=== PATIENT | female | born 1945 | race Caucasian/White ===

== ENCOUNTER → 2017-12-29 08:43 | Outpatient (CLI) | payer MEDICARE, OTHER, SELFPAY ==
[2017-12-29 09:31] LABS: Alanine Aminotransferase 18 IU/L (9-52); Albumin 4.1 g/dL (3.5-5.0); Albumin Globulin Ratio 1.4 (1.0-2.8); Alkaline Phosphatase 25 U/L (38-126); Aspartate Aminotransferase 18 IU/L (14-36); Bilirubin Total 0.5 mg/dL (0.2-1.3); Blood Urea Nitrogen 15 mg/dL (7-17); Calcium 9.4 mg/dL (8.4-10.2); Carbon Dioxide 29 mmol/L (22-32); Chloride 103 mmol/L (98-107); Cholesterol 248 mg/dL (140-199); Estimated Glomerular Filt Rate > 60.0 mL/min (>60); Globulin 2.9 g/dL (1.7-4.1); Glucose 90 mg/dL (80-110); HDL Cholesterol 63 mg/dL (40-60); HEMOLYSIS < 15 (0-50); LDL Cholesterol Calculated 165 mg/dL (<100); Potassium 4.1 mmol/L (3.4-5.1); Sodium 142 mmol/L (137-145); Triglycerides 99 mg/dL (35-150)
== END ==
PROVIDERS: PCP Physician Assistant; Visit Provider Physician Assistant
DX: E78.5 Hyperlipidemia, unspecified (principal)
CPT/HCPCS: 36415; 80053; 80061

== ENCOUNTER → 2018-02-06 16:26 | Outpatient (CLI) | payer MEDICARE, OTHER, SELFPAY | PROVIDERS: PCP Physician Assistant; Visit Provider Physician Assistant | DX: R30.0 Dysuria (principal) | CPT/HCPCS: 87077; 87086; 87186 ==

== ENCOUNTER → 2018-06-06 13:07 | Outpatient (CLI) | payer MEDICARE, OTHER, SELFPAY ==
[2018-06-06 15:07] LABS: Add Manual Diff / Slide Review NO; Basophils Percent Auto 0.6 % (0-2); Eosinophils Percent Auto 1.5 % (2-4); Hematocrit 38.7 % (36-46); Hemoglobin 13.1 g/dL (12.0-16.0); Lymphocytes Percent Auto 29.9 % (25-40); Mean Corpuscular HGB Conc 33.9 % (30-36); Mean Corpuscular Hemoglobin 31.3 PG (26-34); Mean Corpuscular Volume 92.2 fL (80-100); Monocytes Percent Auto 8.1 % (3-14); Neutrophils Absolute Auto 3000 /uL (3000-5900); Neutrophils Percent Auto 59.9 % (50-75); Platelet Count 164 X10^3/uL (150-400); Red Blood Cell Count 4.19 X10^6/uL (4.0-5.2); Red Cell Distribution Width 13.1 % (11.6-14.8); White Blood Cell Count 5.1 X10^3/uL (4.5-11.0)
[2018-06-06 15:25] LABS: Alanine Aminotransferase 34 IU/L (9-52); Albumin 4.3 g/dL (3.5-5.0); Albumin Globulin Ratio 1.7 (1.0-2.8); Alkaline Phosphatase 29 U/L (38-126); Aspartate Aminotransferase 20 IU/L (14-36); BUN Creatinine Ratio 21.4 (6-22); Bilirubin Total 0.7 mg/dL (0.2-1.3); Blood Urea Nitrogen 15 mg/dL (7-17); Calcium 9.5 mg/dL (8.4-10.2); Carbon Dioxide 24 mmol/L (22-32); Chloride 105 mmol/L (98-107); Estimated Glomerular Filt Rate > 60.0 mL/min (>60); Globulin 2.5 g/dL (1.7-4.1); Glucose 91 mg/dL (80-110); HEMOLYSIS < 15 (0-50); Sodium 140 mmol/L (137-145); Total Protein 6.8 g/dL (6.3-8.2)
[2018-06-06 15:34] LABS: Cholesterol 254 mg/dL (140-199); HDL Cholesterol 75 mg/dL (40-60); LDL Cholesterol Calculated 163 mg/dL (<100); Triglycerides 78 mg/dL (35-150)
[2018-06-06 17:15] LABS: Clostridium Difficile Tox PCR Negative for C.diff
== END ==
PROVIDERS: PCP Physician Assistant; Visit Provider Physician Assistant
DX: E78.5 Hyperlipidemia, unspecified (principal); Z51.81 Encounter for therapeutic drug level monitoring; R19.7 Diarrhea, unspecified
CPT/HCPCS: 36415; 80053; 80061; 85025; 87015; 87045; 87177; 87427; 87493; 87899

== ENCOUNTER → 2018-06-20 12:03 | Outpatient (CLI) | payer MEDICARE, OTHER, SELFPAY ==
[2018-06-20 17:11] LABS: Thyroid Stimulating Hormone 0.93 uIU/mL (0.47-4.68)
[2018-06-21 14:14] LABS: Clostridium Difficile Tox PCR Negative for C. diff
== END ==
PROVIDERS: PCP Physician Assistant; Visit Provider Physician Assistant
DX: R19.7 Diarrhea, unspecified (principal); R63.4 Abnormal weight loss
CPT/HCPCS: 36415; 84443; 87015; 87045; 87427; 87493; 87899

== ENCOUNTER → 2018-06-21 10:24 | Outpatient (CLI) | payer MEDICARE, OTHER, SELFPAY | PROVIDERS: PCP Physician Assistant; Visit Provider Physician Assistant | DX: E78.5 Hyperlipidemia, unspecified (principal) | CPT/HCPCS: 36415 ==

== ENCOUNTER → 2018-06-25 09:28 | Outpatient (CLI) | payer MEDICARE, OTHER, SELFPAY ==
--- NOTE | 2018-06-25 | DI.MG.S_ITS ---
BILATERAL DIGITAL SCREENING MAMMOGRAM 3D/2D WITH CAD POST LUMPECTOMY: 06/25/2018 CLINICAL: Routine screening. Personal history of left breast cancer. Comparison is made to exams dated: 02/02/2017 mammogram - [facility], 11/25/2015 mammogram - [facility], and 11/23/2014 mammogram - [facility]. There are scattered fibroglandular elements in both breasts. Current study was also evaluated with a Computer Aided Detection (CAD) system. There are benign post operative findings in the left breast. No significant masses, calcifications, or other findings are seen in either breast. There has been no significant interval change. IMPRESSION: There is no mammographic evidence of malignancy. A 1 year screening mammogram is recommended. This exam was interpreted at Station ID: [id number]. NOTE: For mammograms, a report in lay terms will be sent to the patient. Approximately 15% of breast malignancies will not be visualized mammographically. In the management of a palpable breast mass, a negative mammogram must not discourage biopsy of a clinically suspicious lesion. Electronically Signed By: Richard peralta/arline:06/27/2018 18:47:00 letter sent: Normal Exam ACR BI-RADS Category 2: Benign Finding(s) 3342F
== END ==
PROVIDERS: PCP Physician Assistant; Visit Provider Physician Assistant
DX: Z12.31 Encounter for screening mammogram for malignant neoplasm of breast (principal); Z85.3 Personal history of malignant neoplasm of breast
CPT/HCPCS: 77063; 77067

== ENCOUNTER → 2018-09-16 08:03 | Outpatient (CLI) | payer MEDICARE, OTHER, SELFPAY ==
[2018-09-16 09:09] LABS: Cholesterol 259 mg/dL (140-199); HDL Cholesterol 72 mg/dL (40-60); LDL Cholesterol Calculated 169 mg/dL (<100); Triglycerides 90 mg/dL (35-150)
== END ==
PROVIDERS: PCP Physician Assistant; Visit Provider Physician Assistant
DX: E78.5 Hyperlipidemia, unspecified (principal)
CPT/HCPCS: 36415; 80061

== ENCOUNTER → 2018-09-30 07:41 | Outpatient (CLI) | payer MEDICARE, OTHER, SELFPAY ==
--- NOTE | 2018-09-30 07:43 | DI.US.S_ITS ---
PROCEDURE: US ABDOMEN COMPLETE INDICATIONS: PAIN; DIARRHEA TECHNIQUE: Real-time scanning was performed of the abdominal and retroperitoneal organs, with image documentation. COMPARISON: None. FINDINGS: Liver: Liver is normal in size and homogeneous in echotexture. Gallbladder: There is no gall stone. No gallbladder wall thickening or pericholecystic fluid. No sonographic Galo sign. Biliary ducts: Intrahepatic bile ducts are non-dilated. Extrahepatic bile duct caliber measures 2.5 mm. Normal is 6-7 mm or less in diameter, or 10 mm or less post-cholecystectomy. Pancreas: Visualized portions of the pancreas are sonographically normal. Spleen: Spleen is normal in size and homogeneous in echotexture. Kidneys: Kidneys are normal in size and echotexture. Right kidney measures 9.6 cm long; left kidney measures 10.8 cm long. No hydronephrosis or nephrolithiasis. No solid masses. Aorta: Visualized aorta is normal in caliber at less than 3 cm. Iliacs: Proximal common iliac arteries are normal in caliber at less than 2.5 cm. IVC: Intrahepatic inferior vena cava is patent. Miscellaneous: No free abdominal fluid. IMPRESSION: Unremarkable ultrasound examination of abdomen. Dictated by: Gen Baldwin M.D. on 09/30/2018 at 9:28 Approved by: Gen Baldwin M.D. on 09/30/2018 at 9:29
== END ==
PROVIDERS: PCP Physician Assistant; Visit Provider Physician Assistant
DX: R10.9 Unspecified abdominal pain (principal); R19.7 Diarrhea, unspecified
CPT/HCPCS: 76700; 87328

== ENCOUNTER → 2019-05-01 07:18 | Outpatient (CLI) | payer MEDICARE, OTHER, SELFPAY ==
[2019-05-01 08:02] LABS: Alanine Aminotransferase 32 IU/L (9-52); Albumin 4.3 g/dL (3.5-5.0); Albumin Globulin Ratio 1.4 (1.0-2.8); Alkaline Phosphatase 24 U/L (38-126); Aspartate Aminotransferase 28 IU/L (14-36); BUN Creatinine Ratio 17.1 (6-22); Bilirubin Total 0.8 mg/dL (0.2-1.3); Blood Urea Nitrogen 12 mg/dL (7-17); Calcium 9.6 mg/dL (8.4-10.2); Carbon Dioxide 29 mmol/L (22-32); Chloride 105 mmol/L (98-107); Cholesterol 254 mg/dL (140-199); Estimated Glomerular Filt Rate > 60.0 mL/min (>60); Glucose 95 mg/dL (80-110); HDL Cholesterol 59 mg/dL (40-60); HEMOLYSIS < 15 (0-50); LDL Cholesterol Calculated 175 mg/dL (<100); Potassium 4.2 mmol/L (3.4-5.1); Sodium 139 mmol/L (137-145); Total Protein 7.3 g/dL (6.3-8.2); Triglycerides 98 mg/dL (35-150)
== END ==
PROVIDERS: PCP Physician Assistant; Visit Provider Physician Assistant
DX: E78.5 Hyperlipidemia, unspecified (principal); M85.89 Other specified disorders of bone density and structure, multiple sites; M81.0 Age-related osteoporosis without current pathological fracture
CPT/HCPCS: 36415; 80053; 80061; 82306

== ENCOUNTER → 2019-05-05 08:47 | Outpatient (CLI) | payer MEDICARE, OTHER, SELFPAY ==
--- NOTE | 2019-05-05 | DI.RAD.S_ITS ---
PROCEDURE: FL BARIUM SWALLOW W SPEECH INDICATIONS: ASPIRATION TECHNIQUE: Examination was conducted in conjunction with speech pathology per standard protocol. In the lateral projection, filming was performed of the patient swallowing. AP projection filming may also be performed with patient swallowing. COMPARISON: None. FINDINGS: Function: The oral preparatory phase appears normal, with proper containment. The subsequent oral propulsive phase, pharyngeal phase, and esophageal phase of swallowing also appear normal with all proffered substances. There was vallecular and pyriform sinus pooling. Silent tracheal aspiration was observed with thin liquid barium consistency only. Morphology: No cricopharyngeal bar is identified. No cervical esophageal webs. No Zenker's diverticulum. No strictures. IMPRESSION: Silent tracheal aspiration with thin liquid barium consistency. Dictated by: Danish Guerin M.D. on 05/05/2019 at 9:40 Approved by: Danish Guerin M.D. on 05/05/2019 at 9:41
--- NOTE | 2019-05-08 18:07 | ST.SWALLOW ---
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 Abbasi Reason for Referral dysphagia Setting Setting Outpatient Care Patient Information Identification Type Name,Picture Patient History Calli Marti presented for a Modified Barium Swallow study at the referral of Dr. Abbasi, ENT. Calli provided her medical history as including breast cancer (left) with radiation and chemo therapies ~ 17 years ago. Calli described her difficulty swallowing as mostly occurring with her secretions. She did note that 2 weeks ago, she had a visit from a friend who is a graphic user interface designer. Her friend told he to place her tongue on the roof of her mouth and press hard before she swallowed ( Supraglottic therapy strategy) . Calli reported that the coughing and choking she was experiencing reduced significantly. She noted she had ~ 2 episodes of tiny aspirations. Now, she reported, she will sometimes aspirate her secretions. She describes her secretions as a lot of saliva and PND. Calli also reported that she had GERD and is taking Zertec, although she has cut her dose down as she felt the medication was drying her up. Subjective Observations Pt was seated in the fluoroscopy chair. Directions and procedures wer described to her and she agreed to proceed. Patient Positioning Position View Lateral Imaging Lateral View Textures Administered Trials Presented Thin Liquid via Spoon,Thin Liquid via Cup,[place] Liquid via Spoon,[place] Liquid via Cup,Pudding Thick Liquid via Spoon,Regular Textures,Barium Tablet Oral Phase Source: MBSIMP (TM) (C) Bolus Specific Scoring Grid Lip Closure WFL Tongue Control During Bolus Hold WFL Bolus Prep/Mastication WFL Bolus Transport/Lingual Motion WFL A/P Lingual Propulsion Delay No Oral Residue WFL Residue Clearing WFL Nasal Regurgitation No Additional Oral Phase Observations Pt's dentition noted missing posterior molars. She said she had a partial, but took it out. OM strength, ROM and speed WNL Pharyngeal Phase Source: MBSIMP (TM) (C) Bolus Specific Scoring Grid Delayed Initiation of Pharyngeal Swallow Yes: To the valeculla Number of Seconds Delayed (seconds) 1+s Soft Palate Elevation WFL Tongue Base Strength/Range of Motion Mild Impairment Residue Along the Tongue Base Yes Clearance of Residue Along Tongue Base Mild Impairment Laryngeal Elevation Minimal Impairment Anterior Hyoid Movement Minimal Impairment Epiglottic Range of Motion Minimal Impairment Vallecular Residue Yes: across all trials Clearance of Vallecular Residue Moderate Impairment Laryngeal Vestibular Closure Moderate Impairment Pharyngeal Stripping Wave Mild Impairment Posterior Pharyngeal Wall Residue Yes Clearance of Posterior Pharyngeal Wall Moderate Impairment Residue Upper Esophageal Sphincter Opening Minimal Impairment Residue in the Pyriform Sinuses Yes: some clearing with second swallows Clearance of Residue in the Pyriform Mild Impairment Sinuses Esophageal Clearance Upright Position Mild Impairment Pharyngoesophageal Backflow Observed No Additional Pharyngeal Phase Observations Pt 's swallow reflex was delayed to the valeculla. Hyolaryneal elevation was adequate and forward movement of the hyoid was incomplete. Tongue base also was reduced. This results in inconsistent epiglottic inversion with resulting pooling of residue in valeculla. Additionally, the epiglottic seal of the larynfgeal vestibule is adequate for single swallows, but when taxed by subsequent swallows, the epiglittic seal was inadequate and resulted in silent penetration and aspiration. [place] thick liquids were swallowed with no penetration or aspiration. Second swallows were effective in clearing residue. Cued coughs x2 cleared the vestible residue and aspirated material. With solid trial, here was pooling of solid material in the valeculla as well as the pyriform sinuses. Second swallow cleared. Chin tuck was effective in reducing residue/pooling. A/P View Clinical Impressions Dysphagia Type pharyngeal dysphagie Findings It is likely that the inconsistency of the epiglottic inversion and the difficulties described above re: her swallow is related to the scatter radiation the pt may have been exposed to during her cancer treatments. And/or there may be a factor of age and presbydysphagia. Discussion with the pt following the assessment, she remarked that the nectar thick liquids were smooth and easy to swallow. Swallow therapy was recommended , but he pt felt that as she was already doing the supraglottic technique and her swallowing had improved, she declined therapy at this time. Patient Appropriate for Therapy Pt refused at this time Recommendations Diet Liquids Order [place] Diet Order Regular Medication Recommendation As Tolerated,Whole in Carrier Aspiration Precautions Recommended Precautions Small Bites/Sips,Double Swallow,Supraglottic Swallow
== END ==
PROVIDERS: PCP Physician Assistant; Visit Provider Otolaryngology Facial Plastic Surgery
DX: J98.8 Other specified respiratory disorders (principal); R13.10 Dysphagia, unspecified
CPT/HCPCS: 74230; 92611

== ENCOUNTER → 2019-05-10 13:01 | Outpatient (CLI) | payer MEDICARE, OTHER, SELFPAY | PROVIDERS: PCP Physician Assistant; Referring Provider Otolaryngology Facial Plastic Surgery; Visit Provider Physician Assistant | DX: M81.0 Age-related osteoporosis without current pathological fracture (principal); Z78.0 Asymptomatic menopausal state; Z90.722 Acquired absence of ovaries, bilateral; Z85.3 Personal history of malignant neoplasm of breast | CPT/HCPCS: 77080 ==

== ENCOUNTER → 2019-07-26 07:33 | Outpatient (CLI) | payer MEDICARE, OTHER, SELFPAY ==
[2019-07-26 09:04] LABS: Cholesterol 171 mg/dL (140-199); HDL Cholesterol 62 mg/dL (40-60); LDL Cholesterol Calculated 95 mg/dL (<100); Triglycerides 68 mg/dL (35-150)
== END ==
PROVIDERS: PCP Physician Assistant; Visit Provider Physician Assistant
DX: E78.5 Hyperlipidemia, unspecified (principal)
CPT/HCPCS: 36415; 80061

== ENCOUNTER → 2019-08-30 08:48 | Outpatient (CLI) | payer MEDICARE, OTHER, SELFPAY ==
--- NOTE | 2019-08-30 | DI.MG.S_ITS ---
BILATERAL DIGITAL SCREENING MAMMOGRAM 3D/2D WITH CAD POST LUMPECTOMY: 08/30/2019 CLINICAL: Routine screening. Personal history of left breast cancer. Comparison is made to exams dated: 06/25/2018 mammogram, 02/02/2017 mammogram - [facility], and 11/25/2015 mammogram - [facility]. There are scattered fibroglandular elements in both breasts. Current study was also evaluated with a Computer Aided Detection (CAD) system. There are benign post operative findings in the left breast. No significant masses, calcifications, or other findings are seen in either breast. There has been no significant interval change. IMPRESSION: There is no mammographic evidence of malignancy. A 1 year screening mammogram is recommended. This exam was interpreted at Station ID: [id number]. NOTE: For mammograms, a report in lay terms will be sent to the patient. Approximately 15% of breast malignancies will not be visualized mammographically. In the management of a palpable breast mass, a negative mammogram must not discourage biopsy of a clinically suspicious lesion. Electronically Signed By: Elvia horowitz/arline:08/30/2019 11:23:34 letter sent: Normal Exam ACR BI-RADS Category 2: Benign Finding(s) 3342F
== END ==
PROVIDERS: PCP Family Medicine; Referring Provider Family Medicine; Visit Provider Family Medicine
DX: Z12.31 Encounter for screening mammogram for malignant neoplasm of breast (principal); Z85.3 Personal history of malignant neoplasm of breast
CPT/HCPCS: 77063; 77067

== ENCOUNTER → 2019-12-22 16:49 | Outpatient (CLI) | payer MEDICARE, OTHER, SELFPAY ==
--- NOTE | 2019-12-22 16:51 | DI.RAD.S_ITS ---
PROCEDURE: XR CERVICAL SPINE 2V OR 3V INDICATIONS: Progressive neck pain TECHNIQUE: 3 view(s) of the cervical spine were acquired. COMPARISON: None. FINDINGS: Bones: No fractures or dislocations to the T1 level. The lateral masses of C1 appear intact on the odontoid view. No suspicious bony lesions. There is a moderate degree of degenerative disc height reduction at C5-6 and C6-7 without subluxation. Facet osteoarthritis on the frontal views greater on the left than the right and best seen along the middle and lower thirds of the cervical spine. Soft tissues: No prevertebral soft tissue swelling. IMPRESSION: Asymmetric left greater than right degenerative changes along the cervical spine best seen through the middle and lower thirds as noted. Spinal and foraminal stenosis may be present given these findings. Dictated by: Rai Pittman M.D. on 12/22/2019 at 16:19 Approved by: Rai Pittman M.D. on 12/22/2019 at 16:20
== END ==
PROVIDERS: PCP Family Medicine; Referring Provider Family Medicine; Visit Provider Family Medicine
DX: M54.2 Cervicalgia (principal); M47.812 Spondylosis without myelopathy or radiculopathy, cervical region
CPT/HCPCS: 72040

== ENCOUNTER → 2020-01-20 | Outpatient (CLI) | payer MEDICARE, OTHER, SELFPAY ==
--- NOTE | 2020-01-20 | DI.MRI.S_ITS ---
PROCEDURE: MR CERVICAL SPINE WO CON INDICATIONS: Other cervical disc degeneration, unspecified cerv TECHNIQUE: Noncontrast sagittal T1 spin echo and T2 fast spin echo, sagittal STIR, foraminal oblique sagittal T2 fast spin echo, and axial gradient echo or T2 fast spin echo through the cervical spine. COMPARISON: None. FINDINGS: Image quality: Excellent. Alignment and Curvature: There is normal bony alignment. Bone Marrow: Marrow demonstrates normal overall signal. Spinal Cord: Visualized spinal cord has normal size and signal. No cerebellar tonsillar herniation. Paraspinous Soft Tissues: No paravertebral masses. Prevertebral soft tissues are normal in thickness. C2-C3: Normal appearance. C3-C4: Normal appearance. C4-C5: Mild posterior disc bulge. No canal stenosis. Mild left neural foraminal narrowing. No right neural foraminal stenosis. C5-C6: Moderate disc desiccation and height loss. Small posterior disc bulge. Mild canal stenosis. Mild bilateral neural foraminal stenosis. C6-C7: Mild disc desiccation and height loss. No canal stenosis. Mild left foraminal narrowing. C7-T1: Normal appearance. IMPRESSION: 1. Mild to moderate disc desiccation height loss within the mid cervical spine. There is mild canal stenosis at C5-6 secondary to posterior disc bulge. 2. Mild foraminal narrowing bilaterally at C5-6 and on the left at C4-5 and C6-7. Dictated by: Elvia Richards M.D. on 01/22/2020 at 9:32 Approved by: Elvia Richards M.D. on 01/22/2020 at 9:41
== END ==
PROVIDERS: PCP Family Medicine; Referring Provider Physical Medicine & Rehabilitation Pain Medicine; Visit Provider Physical Medicine & Rehabilitation Pain Medicine
DX: M50.322 Other cervical disc degeneration at C5-C6 level (principal); M48.02 Spinal stenosis, cervical region; M50.221 Other cervical disc displacement at C4-C5 level
CPT/HCPCS: 72141

== ENCOUNTER → 2020-01-25 17:52 | Outpatient (CLI) | payer MEDICARE, OTHER, SELFPAY ==
--- NOTE | 2020-01-25 | DI.MRI.S_ITS ---
PROCEDURE: MR LUMBAR SPINE WO CON INDICATIONS: Low back pain TECHNIQUE: Noncontrast sagittal T1 spin echo and T2 fast echo, sagittal STIR, axial T1 and T2 fast spin echo through the lumbar spine. In cases with scoliosis, additional coronal T2 fast spin echo may be performed. COMPARISON: None. FINDINGS: Image quality: Excellent. Alignment and Curvature: There is normal bony alignment. Bone Marrow: Marrow is of normal overall signal. No acute vertebral body compression fractures. Spinal Cord: Conus medullaris terminates at the L1 level. Visualized cord demonstrates normal signal and size. Paraspinous Soft Tissues: No paravertebral masses. L1-L2: Loss of disc signal. No central stenosis. No neural foraminal narrowing. No neural compression. L2-L3: Loss of disc signal. Mild, diffuse disc bulge. Mild narrowing of the central canal. Small right foraminal disc protrusion. Moderate right and mild left neural foraminal narrowing. No neural compression. L3-L4: Loss of disc signal. Minimal, diffuse disc bulge. Mild bilateral facet hypertrophy. Mild narrowing of the central canal. Mild bilateral neural foraminal narrowing. No neural compression. L4-L5: Loss of disc signal. Mild, diffuse disc bulge. Mild bilateral facet hypertrophy. Mild to moderate narrowing of the central canal. Moderate bilateral neural foraminal narrowing. No neural compression. L5-S1: Loss of disc signal. Mild, diffuse disc bulge. Moderate right and mild left facet hypertrophy. No central stenosis. No neural foraminal narrowing. No neural compression. 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 IMPRESSION: 1. Multilevel degenerate disc disease. 2. Multilevel facet arthropathy. 3. Mild to moderate L4-L5 central canal narrowing. Mild L2-L3 and L3-L4 central canal narrowing. 4. Moderate bilateral L4-L5 neural foraminal narrowing. Moderate right and mild left L2-L3 neural foraminal narrowing. Mild bilateral L3-L4 neural foraminal narrowing. 5. No neural compression. Dictated by: Abbi Story MD, PhD on 01/26/2020 at 10:43 Approved by: Abbi Story MD, PhD on 01/26/2020 at 11:35
== END ==
PROVIDERS: PCP Family Medicine; Referring Provider Physical Medicine & Rehabilitation Pain Medicine; Visit Provider Physical Medicine & Rehabilitation Pain Medicine
DX: M54.5 Low back pain (principal); M51.36 Other intervertebral disc degeneration, lumbar region; M51.37 Other intervertebral disc degeneration, lumbosacral region; M48.061 Spinal stenosis, lumbar region without neurogenic claudication; M48.07 Spinal stenosis, lumbosacral region
CPT/HCPCS: 72148

== ENCOUNTER → 2020-05-21 13:33 | Outpatient (CLI) | payer MEDICARE, OTHER, SELFPAY ==
--- NOTE | 2020-05-21 13:34 | DI.US.S_ITS ---
LIMITED ULTRASOUND OF LEFT BREAST AND AXILLA: 05/21/2020 CLINICAL: Focal left breast pain. Comparison is made to exams dated: 05/21/2020 mammogram, 08/30/2019 mammogram, 06/25/2018 mammogram, and 02/02/2017 mammogram - [facility]. Real-time ultrasound of the left breast 11-12 o'clock, and axilla regions was performed. Louis scale images of the real-time examination were reviewed. No significant abnormalities were seen sonographically in the left breast in the region of pain or the left axilla. IMPRESSION: NEGATIVE There is no sonographic evidence of malignancy in the region of pain or in the left axilla. Exam findings were conveyed to the patient. Patient is advised to monitor for significant change. Clinical follow-up as needed. A 1 year screening mammogram is recommended. This exam was interpreted at Station ID: [id number]. Electronically Signed By: Willie Marrero M.D. slc/:05/21/2020 15:11:39 letter sent: Normal Exam Ultrasound BI-RADS: 1 Negative
--- NOTE | 2020-05-21 13:34 | DI.MG.S_ITS ---
BILATERAL DIGITAL DIAGNOSTIC MAMMOGRAM 3D/2D POST LUMPECTOMY: 05/21/2020 CLINICAL: Left breast pain and lump. Comparison is made to exams dated: 08/30/2019 mammogram, 06/25/2018 mammogram, 02/02/2017 mammogram - [facility], and 11/25/2015 mammogram - [facility]. There are scattered fibroglandular elements in both breasts. No significant masses, calcifications, or other findings are seen in either breast. Stable post surgical scar in the left breast upper outer quadrant. IMPRESSION: INCOMPLETE: NEEDS ADDITIONAL IMAGING EVALUATION No mammographic evidence of malignancy. A targeted ultrasound is recommended to evaluate the palpable abnormality/ focal pain and will immediately follow. This exam was interpreted at Station ID: [id number]. NOTE: For mammograms, a report in lay terms will be sent to the patient. Approximately 15% of breast malignancies will not be visualized mammographically. In the management of a palpable breast mass, a negative mammogram must not discourage biopsy of a clinically suspicious lesion. Electronically Signed By: Willie Marrero M.D. slc/:05/21/2020 14:19:21 ACR BI-RADS Category 0: Incomplete [id number]
== END ==
PROVIDERS: PCP Family Medicine; Referring Provider Family Medicine; Visit Provider Family Medicine
DX: N64.4 Mastodynia (principal); R92.8 Other abnormal and inconclusive findings on diagnostic imaging of breast
CPT/HCPCS: 76642; 77066; G0279

== ENCOUNTER → 2020-09-06 15:40 | Outpatient (CLI) | payer MEDICARE, OTHER, SELFPAY ==
[2020-09-06 16:32] LABS: Add Manual Diff / Slide Review NO; Basophils Absolute Auto 0 /uL (0-100); Basophils Percent Auto 0.7 % (0-2); Eosinophils Absolute Auto 0 /uL (0-450); Hematocrit 37.3 % (36-46); Hemoglobin 13.1 g/dL (12.0-16.0); Lymphocytes Absolute Auto 1600 /uL (1100-4500); Lymphocytes Percent Auto 38.9 % (25-40); Mean Corpuscular Hemoglobin 31.5 PG (26-34); Mean Corpuscular Volume 89.9 fL (80-100); Monocytes Absolute Auto 400 /uL (0-900); Monocytes Percent Auto 8.9 % (3-14); Neutrophils Absolute Auto 2100 /uL (1500-7000); Neutrophils Percent Auto 51.5 % (50-75); Platelet Count 141 X10^3/uL (150-400); Red Blood Cell Count 4.15 X10^6/uL (4.0-5.2); Red Cell Distribution Width 13.1 % (11.6-14.8); White Blood Cell Count 4.1 X10^3/uL (4.5-11.0)
[2020-09-06 16:55] LABS: BUN Creatinine Ratio 20.5 (6-22); Blood Urea Nitrogen 15 mg/dL (7-17); Calcium 9.4 mg/dL (8.4-10.2); Carbon Dioxide 25 mmol/L (22-32); Chloride 104 mmol/L (98-107); Cholesterol 169 mg/dL (140-199); Estimated Glomerular Filt Rate > 60.0 mL/min (>60); Glucose 92 mg/dL (80-110); HDL Cholesterol 65 mg/dL (40-60); HEMOLYSIS < 15 (0-50); LDL Cholesterol Calculated 81 mg/dL (<100); Sodium 136 mmol/L (137-145); Triglycerides 116 mg/dL (35-150)
[2020-09-06 17:15] LABS: Free T3, Triiodothyronine Free 3.13 pg/mL (2.77-5.27); Free T4, Direct Thyroxine 0.92 ng/dL (0.78-2.19)
[2020-09-06 17:29] LABS: Thyroid Stimulating Hormone 1.23 uIU/mL (0.47-4.68)
== END ==
PROVIDERS: PCP Family Medicine; Referring Provider Family Medicine; Visit Provider Family Medicine
DX: E78.5 Hyperlipidemia, unspecified (principal)
CPT/HCPCS: 80048; 80061; 84439; 84443; 84481; 85025

== ENCOUNTER 2020-11-12 16:41 | Emergency (ER) | payer MEDICARE, OTHER, SELFPAY ==
--- NOTE | 2020-11-12 | DI.RAD.S_ITS ---
PROCEDURE: XR ACUTE ABDOMEN SERIES INDICATIONS: N/V TECHNIQUE: One view chest and two views of the abdomen were acquired. COMPARISON: Outside Facility, RG, CT ABDOMEN/PELVIS W/WO CONTRAST, 08/31/2016, 11:47. FINDINGS: Surgical changes and devices: Multiple surgical clips are demonstrated laterally in the left hemithorax. Chest: Lungs are clear. Heart size is normal. No pleural effusions. No pneumoperitoneum. Abdomen: Bowel gas pattern is within normal limits. There are a few grouped calcifications within the left hemipelvis compatible with vascular calcifications on the prior CT. Bones: No suspicious bony lesions. IMPRESSION: 1. No acute intra-abdominal radiographic abnormality. Dictated by: Gianfranco Almendarez M.D. on 11/12/2020 at 18:16 Approved by: Gianfranco Almendarez M.D. on 11/12/2020 at 18:18
[2020-11-12 16:48] VITALS: BP 144/77; PULSE 91; RESP 20; TEMP 36.9; O2SAT 99
[2020-11-12 17:09] LABS: Add Manual Diff / Slide Review NO; Basophils Absolute Auto 0 /uL (0-100); Basophils Percent Auto 0.1 % (0-2); Eosinophils Absolute Auto 0 /uL (0-450); Hematocrit 38.9 % (36-46); Hemoglobin 13.5 g/dL (12.0-16.0); Lymphocytes Absolute Auto 600 /uL (1100-4500); Mean Corpuscular HGB Conc 34.8 % (30-36); Mean Corpuscular Hemoglobin 31.6 PG (26-34); Mean Corpuscular Volume 90.7 fL (80-100); Monocytes Absolute Auto 500 /uL (0-900); Monocytes Percent Auto 5.5 % (3-14); Neutrophils Absolute Auto 7700 /uL (1500-7000); Neutrophils Percent Auto 87.4 % (50-75); Platelet Count 157 X10^3/uL (150-400); Red Blood Cell Count 4.29 X10^6/uL (4.0-5.2); Red Cell Distribution Width 14.2 % (11.6-14.8); White Blood Cell Count 8.8 X10^3/uL (4.5-11.0)
[2020-11-12] MEDS: SODIUM CHLORIDE 0.9% 1,000 ML 1000 ML IV (17:11)
[2020-11-12] MEDS: ONDANSETRON 4 MG/2 ML INJ IV (17:11)
[2020-11-12 17:17] LABS: Prothrombin Time 11.7 SECONDS (10.1-12.7)
[2020-11-12 17:19] LABS: PTT Partial Thromboplastin Tim 29 SECONDS (26.4-36.2)
[2020-11-12 17:23] LABS: Alanine Aminotransferase 19 IU/L (<35); Albumin 4.5 g/dL (3.5-5.0); Albumin Globulin Ratio 1.6 (1.0-2.8); Alkaline Phosphatase 29 U/L (38-126); Aspartate Aminotransferase 26 IU/L (14-36); BUN Creatinine Ratio 16.8 (6-22); Bilirubin Total 0.4 mg/dL (0.2-1.3); Blood Urea Nitrogen 16 mg/dL (7-17); Calcium 9.8 mg/dL (8.4-10.2); Carbon Dioxide 24 mmol/L (22-32); Chloride 107 mmol/L (98-107); Estimated Glomerular Filt Rate 57.5 mL/min (>60); Globulin 2.8 g/dL (1.7-4.1); Glucose 126 mg/dL (80-110); HEMOLYSIS < 15 (0-50); Lipase 102 U/L (23-300); Potassium 4.2 mmol/L (3.4-5.1); Sodium 138 mmol/L (137-145); Total Protein 7.3 g/dL (6.3-8.2)
--- NOTE | 2020-11-12 18:01 | ED_ITS ---
HPI - Abdominal Pain General Chief Complaint: Abdominal Pain Stated Complaint: abd pain, nausea, dry heaves Time Seen by Provider: 11/12/20 17:00 Source: patient Mode of arrival: Ambulatory Limitations: no limitations History of Present Illness HPI narrative: 75-year-old female former smoker with history of thoracic back pain, breast pain, cervical stenosis, sacral somatic dysfunction presents with a chief complaint of multiple episodes of dry heaves generalized abdominal pain and nausea over the course of the day. She has had a poor appetite and now is feeling a bit fatigued and lightheaded. She states that she has developed pain over the course of the day with her dry heaves but that the nausea and dry he started 1st. She denies any bad food, recent antibiotics or exposure to other ill persons. She has had no fever or chills. She denies any chest pain or shortness of breath. MD complaint: abdominal pain Onset (ago): hour(s) Pain Consistency: intermittent Location: suprapubic Severity: mild Quality: cramping Radiation: none Exacerbating factors: nothing Context: foreign travel Related Data Home Medications Medication Instructions Recorded Confirmed flaxseed oil 1,000 mg capsule 1,000 mg PO BID 09/26/18 09/18/20 Proanthocyanidins (Ellura) See Rx Instructions .ROUTE .COMPLEX 05/15/19 09/18/20 progesterone micronized 100 mg 100 mg PO BEDTIME cap 05/15/19 09/18/20 capsule [VITAMIN D3] 2,000 iu PO .TIW #0 05/01/20 09/18/20 fluocinolone 0.01 % topical body 1 applic TOPICAL DAILY 06/14/20 09/18/20 oil fluocinonide 0.05 % topical 1 applic TOPICAL BID 06/14/20 09/18/20 solution Previous Rx's Medication Instructions Recorded rosuvastatin 5 mg tablet 5 mg PO DAILY #30 tab 07/12/19 rosuvastatin 5 mg tablet 5 mg PO .TIW #36 tab 06/14/20 lansoprazole 15 mg capsule,delayed 15 mg PO DAILY #90 cap 07/29/20 release calcitonin (salmon) 200 1 spray INTRANASAL DAILY #3 each 08/09/20 unit/actuation nasal spray tramadol 100 mg tablet 100 mg PO BID PRN #60 tab 09/18/20 meloxicam 15 mg tablet See Rx Instructions .ROUTE 10/01/20 .COMPLEX #90 tab ondansetron 4 mg PO TID-QID PRN #10 tab 11/12/20 Allergies Allergy/AdvReac Type Severity Reaction Status Date / Time levofloxacin [LEVOFLOXACIN] Allergy Severe DIZZINESS, Verified 09/18/20 10:10 WEAKNESS AND VOMITING Sulfa (Sulfonamide Allergy Severe PASSED Verified 09/18/20 10:10 Antibiotics) OUT, [SULFA (SULFONAMIDE DIZZINESS, ANTIBIOTICS)] NAUSEA ciprofloxacin [From CIPRO] Allergy Intermediate WEAKNESS, Verified 09/18/20 10:10 FAINTING, DIZZINESS nitrofurantoin Allergy Intermediate DIZZINESS, Verified 09/18/20 10:10 [From MACROBID] WEAKNESS, DIARRHEA AND VOMITING Review of Systems Constitutional Constitutional: Denies chills, Denies fatigue, Denies fever(s), Denies frequent falls, Denies lethargy and Denies weakness Eyes Eyes: Denies change in vision, Denies eye discharge, Denies irritation and Denies loss of vision ENT Ears, Nose, Mouth, and Throat: Denies change in voice, Denies dizziness, Denies neck pain, Denies sore throat and Denies throat swelling Cardiovascular Cardiovascular: Denies chest pain, Denies irregular heart rhythm, Denies lightheadedness, Denies palpitations, Denies dyspnea, Denies dyspnea on exertion and Denies orthopnea Respiratory Respiratory: Denies cough, Denies dyspnea, Denies dyspnea on exertion and Denies wheezing Gastrointestinal Gastrointestinal: Reports abdominal pain, Denies change in bowel habits, Denies diarrhea, Reports nausea and Reports vomiting Musculoskeletal Musculoskeletal: Denies neck pain and Denies numbness Integumentary/Breasts Skin/Breast: Denies pruritus, Denies erythema, Denies rash and Denies wounds Neurologic Neurologic: Denies behavioral changes, Denies confusion, Denies dizziness, Denies frequent falls, Denies loss of vision, Denies numbness and Denies weakness Psychiatric Psychiatric: Denies anxiety, Denies behavioral changes, Denies confusion, Denies depression, Denies homicidal ideation and Denies suicidal ideation Endocrine Endocrine: Denies fatigue, Denies flushing and Denies palpitations Hematologic/Lymphatic Hematologic/Lymphatic: Denies easy bruising Allergic/Immunologic Allergic/Immunologic: Denies urticaria, Denies throat swelling and Denies whe ezing Patient History Medical History (Updated 11/12/20 @ 18:55 by Kayden Odonnell DO) Cervical somatic dysfunction Cervical stenosis of spine Chronic low back pain without sciatica Chronic thoracic back pain Cranial somatic dysfunction Lumbar facet arthropathy Lumbar region somatic dysfunction Neck pain Pelvic somatic dysfunction Sacral region somatic dysfunction Segmental and somatic dysfunction of abdomen and other regions Thoracic region somatic dysfunction Surgical History History of cataract removal with insertion of prosthetic lens History of lumpectomy (01/10/02) S/P total abdominal hysterectomy and bilateral salpingo-oophorectomy Status post tubal ligation Family History Brother Age: 77 Hyperlipidemia Mother Hyperlipidemia Ovarian cancer History of cholelithiasis Pheochromocytoma Sister Essential hypertension Hyperlipidemia Social History Smoking Status: Former smoker Tobacco: How many years used: 1 second hand exposure: No alcohol intake: former substance use type: does not use Smoking Status: Former smoker Exam Narrative Exam Narrative: GENERAL: [75] year old patient appears stated age. Well- nourished, well-developed patient, in mild distress. HEAD: Atraumatic. Normocephalic. EYES: Pupils equal round and reactive. Extraocular motions intact. No scleral icterus. No injection or drainage. ENT: Dry mucous membranes Nose without bleeding, purulent drainage. Throat without erythema, tonsillar hypertrophy or exudate. Airway patent. NECK: Trachea midline. Non tender CARDIOVASCULAR: Regular rate and rhythm without murmurs, gallops, or rubs. RESPIRATORY: Clear to auscultation. Breath sounds equal bilaterally. No wheezes, rales, or rhonchi. GASTROINTESTINAL: Abdomen soft, non-tender, nondistended. EXTREMITIES: No edema or joint tenderness. BACK: Nontender without deformity or crepitance. No flank tenderness. NEURO: AOx3. SKIN: No rash or erythema of visible areas Initial Vital Signs Initial Vital Signs: Vital Signs Temperature 98.5 F 11/12/20 16:48 Pulse Rate 91 H 11/12/20 16:48 Respiratory Rate 20 11/12/20 16:48 Blood Pressure 144/77 H 11/12/20 16:48 Pulse Oximetry 99 11/12/20 16:48 Course Orders Ordered: Discontinued Medications Sodium Chloride (Normal Saline 0.9%) 1,000 mls @ 1,000 mls/hr IV BOLUS ONE Stop: 11/12/20 18:05 Last Infusion: 11/12/20 19:11 Dose: 0 mls/hr Documented by: Admin: 11/12/20 17:11 Dose: 1,000 mls/hr Documented by: JOE Ondansetron HCl (Ondansetron 4 Mg/2 Ml Inj) 4 mg IV NOW ONE Stop: 11/12/20 17:07 Last Admin: 11/12/20 17:11 Dose: 4 mg Documented by: JOE Reevaluation(s) Reevaluation #1: Patient feeling much better after above-stated therapies Vital Signs Vital signs: Vital Signs - 8 hr 11/12/20 16:48 Temperature 98.5 F Pulse Rate 91 H Respiratory Rate 20 Blood Pressure 144/77 H Pulse Oximetry 99 MDM - Abdominal Pain Lab Data Result diagrams: 11/12/20 17:00 11/12/20 17:00 Labs: Lab Results 11/12/20 11/12/20 11/12/20 Range/Units 17:00 17:00 17:00 WBC 8.8 (4.5-11.0) X10^3/uL RBC 4.29 (4.0-5.2) X10^6/uL Hgb 13.5 (12.0-16.0) g/dL Hct 38.9 (36-46) % MCV 90.7 (80-100) fL MCH 31.6 (26-34) PG MCHC 34.8 (30-36) % RDW 14.2 (11.6-14.8) % Plt Count 157 (150-400) X10^3/uL Neut % (Auto) 87.4 H (50-75) % Lymph % (Auto) 7.0 L (25-40) % Woodson % (Auto) 5.5 (3-14) % Eos % (Auto) 0.0 L (2-4) % Baso % (Auto) 0.1 (0-2) % Neut # (Auto) 7700 H (5674-9872) /uL Lymph # (Auto) 600 L (4487-5191) /uL Woodson # (Auto) 500 (0-900) /uL Eos # (Auto) 0 (0-450) /uL Baso # (Auto) 0 (0-100) /uL PT 11.7 (10.1-12.7) SECONDS INR 1.0 (0.9-1.3) APTT 29 (26.4-36.2) SECONDS Sodium 138 (137-145) mmol/L Potassium 4.2 (3.4-5.1) mmol/L Chloride 107 (98-107) mmol/L Carbon Dioxide 24 (22-32) mmol/L BUN 16 (7-17) mg/dL Creatinine 0.95 (0.52-1.04) mg/dL Estimated GFR 57.5 L (>60) mL/min BUN/Creatinine Ratio 16.8 (6-22) Glucose 126 H (80-110) mg/dL Calcium 9.8 (8.4-10.2) mg/dL Total Bilirubin 0.4 (0.2-1.3) mg/dL AST 26 (14-36) IU/L ALT 19 (<35) IU/L Alkaline Phosphatase 29 L (38-126) U/L Total Protein 7.3 (6.3-8.2) g/dL Albumin 4.5 (3.5-5.0) g/dL Globulin 2.8 (1.7-4.1) g/dL Albumin/Globulin Ratio 1.6 (1.0-2.8) Lipase 102 (23-300) U/L Point of care testing: Urine Dip Bedside Urine Glucose Negative Bedside Urine Bilirubin - Negative Bedside Urine Ketone + 15 Urine Specific Anselmo 1.025 Bedside Urine Occult Blood ++ Bedside Urine pH 6.5 Bedside Urine Protein - Negative Bedside Urine Urobilinogen - Negative Bedside Urine Nitrite - Negative Bedside Urine Leukocytes - Negative Esterase Imaging Data Abdominal x-ray: Radiologist's Impression: Calli Marti 75 F [address] [id number] ReportSigned Patient: Calli Marti AMR#: [id number]: 1945cct:[id number]/Sex: 75 / FDate of Service: 11/12/20Loc: EDAccession Number: [id number] Procedure: XR acute abdomen series Ordering Provider: Kayden Odonnell D.O. PROCEDURE: XR ACUTE ABDOMEN SERIES INDICATIONS: N/V TECHNIQUE: One view chest and two views of the abdomen were acquired. COMPARISON: Outside Facility, RG, CT ABDOMEN/PELVIS W/WO CONTRAST, 08/31/2016, 11:47. FINDINGS: Surgical changes and devices: Multiple surgical clips are demonstrated laterally in the left hemithorax. Chest: Lungs are clear. Heart size is normal. No pleural effusions. No pneumoperitoneum. Abdomen: Bowel gas pattern is within normal limits. There are a few grouped calcifications within the left hemipelvis compatible with vascular calcifications on the prior CT. Bones: No suspicious bony lesions. IMPRESSION: 1. No acute intra-abdominal radiographic abnormality. Dictated by: Gianfranco Almendarez M.D. on 11/12/2020 at 18:16 Approved by: Gianfranco Almendarez M.D. on 11/12/2020 at 18:18 MDM Narrative Medical decision making narrative: Multiple etiologies for patient's symptoms considered including bowel obstruction versus food-borne illness versus gastroenteritis versus appendicitis versus other Patient's symptoms improved over duration of stay with above-stated therapies. Findings and discharge diagnosis discussed with patient/family followed by verbalization of understanding Return precautions discussed with patient/family whom verbalize understanding. Discharge Plan Departure Patient Disposition: Home Clinical Impression: Vomiting Qualifiers: Vomiting type: unspecified Vomiting Intractability: non-intractable Nausea presence: with nausea Qualified Code(s): R11.2 - Nausea with vomiting, unspecified Instructions: DI for Vomiting -- Adult Activity Restrictions/Additional Instructions: *You have been diagnosed with [nausea, dry heaves with very reassuring labs and x-ray. There is no evidence of bowel obstruction or perforation.] *What to do: *Please continue to take your regular medications as directed. [x ] New medication prescriptions sent to your pharmacy: [ [facility]] [ ] New medication written as a paper prescription [ ] No new medications given *Please follow up with your primary care provider in 2-3 days, call for an appoi ntment. Let them know you were seen in the Emergency Department and that we ask that you be seen in follow up. We will electronically transmit a record of today's note if your PCP is in our system Please consider a clear liquid diet for the next 24-48 hours and then advance slowly through a bland diet back to your normal. *If you do not have a primary care provider please contact the [facility] Resource line at [phone]. They will ask some questions about your medical history and help get you set up with a doctor in the community. *Return to Emergency Department if you should have any new, worsening or concerning symptoms, such as [fever greater than 101 F, shaking chills, worse annia pain, persistent vomiting or other bothersome symptoms] Prescriptions: New ondansetron 4 mg tablet,disintegrating 4 mg PO TID-QID PRN (Reason: nausea and vomiting) Qty: 10 RF: 0 No Action flaxseed oil 1,000 mg capsule 1,000 mg PO BID RF: 0 rosuvastatin 5 mg tablet 5 mg PO DAILY Qty: 30 RF: 3 Hold Instructions: medication change [VITAMIN D3] 2,000 iu PO .TIW Qty: 0 RF: 0 lansoprazole 15 mg capsule,delayed release(DR/EC) 15 mg PO DAILY Qty: 90 RF: 3 calcitonin (salmon) 200 unit/actuation spray,non-aerosol 1 spray Intranasal DAILY Qty: 3 RF: 3 meloxicam 15 mg tablet See Rx Instructions .ROUTE .COMPLEX Qty: 90 RF: 3 Proanthocyanidins (Ellura) See Rx Instructions .ROUTE .COMPLEX RF: 0 progesterone micronized 100 mg capsule 100 mg PO BEDTIME RF: 0 tramadol 100 mg tablet 100 mg PO BID PRN (Reason: pain) Qty: 60 RF: 0 rosuvastatin 5 mg tablet 5 mg PO .TIW Qty: 36 RF: 3 fluocinolone 0.01 % oil 1 applic topical DAILY RF: 0 fluocinonide 0.05 % solution 1 applic topical BID RF: 0 Referrals: Ron Arreaga DO [Primary Care Provider] -
[2020-11-12 19:11] VITALS: BP 136/76; PULSE 77; RESP 16; O2SAT 99
== END 2020-11-12 19:12 | disposition home or self-care (01) ==
PROVIDERS: Emergency Provider Emergency Medicine; PCP Family Medicine
DX: R11.2 Nausea with vomiting, unspecified (principal)
CPT/HCPCS: 36415; 74022; 80053; 81003; 83690; 85025; 85610; 85730; 96361; 96374; 99284; J2405

== ENCOUNTER → 2020-11-25 09:20 | Outpatient (CLI) | payer MEDICARE, OTHER, SELFPAY | PROVIDERS: PCP Family Medicine; Visit Provider Family Medicine | DX: R30.0 Dysuria (principal) | CPT/HCPCS: 87086 ==

== ENCOUNTER → 2021-01-10 15:43 | Outpatient (CLI) | payer MEDICARE, OTHER, SELFPAY ==
--- NOTE | 2021-01-10 15:45 | DI.US.S_ITS ---
PROCEDURE: US ABDOMEN LIMITED INDICATIONS: CYST LOWER BACK TECHNIQUE: Real-time focused scanning was performed of the abdomen, with image documentation. COMPARISON: None. FINDINGS: No cyst, mass, nodule or other sonographic abnormality identified in the region of clinical interest in the right lower back. No soft tissue edema identified. IMPRESSION: No sonographic abnormality identified in the region of clinical interest. Dictated by: Abbi Story MD, PhD on 01/14/2021 at 10:31 Approved by: Abbi Story MD, PhD on 01/14/2021 at 10:32
== END ==
PROVIDERS: PCP Family Medicine; Referring Provider Family Medicine; Visit Provider Family Medicine
DX: M54.5 Low back pain (principal)
CPT/HCPCS: 76705

== ENCOUNTER → 2021-05-26 14:40 | Outpatient (CLI) | payer MEDICARE, OTHER, SELFPAY ==
--- NOTE | 2021-05-26 | DI.MG.S_ITS ---
BILATERAL DIGITAL SCREENING MAMMOGRAM 3D/2D WITH CAD: 05/26/2021 CLINICAL: Routine screening. Personal history of left breast cancer. Family history of breast cancer. Comparison is made to exams dated: 05/21/2020 mammogram, 08/30/2019 mammogram, and 06/25/2018 mammogram - [facility]. There are scattered fibroglandular elements in both breasts. Current study was also evaluated with a Computer Aided Detection (CAD) system. No significant masses, calcifications, or other findings are seen in either breast. There has been no significant interval change. IMPRESSION: NEGATIVE There is no mammographic evidence of malignancy. A 1 year screening mammogram is recommended. This exam was interpreted at Station ID: [id number]. NOTE: For mammograms, a report in lay terms will be sent to the patient. Approximately 15% of breast malignancies will not be visualized mammographically. In the management of a palpable breast mass, a negative mammogram must not discourage biopsy of a clinically suspicious lesion. Electronically Signed By: David Aldana M.D., jr/arline:05/26/2021 15:45:01 letter sent: Normal Exam ACR BI-RADS Category 1: Negative 3341F
== END ==
PROVIDERS: PCP Family Medicine; Referring Provider Family Medicine; Visit Provider Family Medicine
DX: Z12.31 Encounter for screening mammogram for malignant neoplasm of breast; M81.0 Age-related osteoporosis without current pathological fracture; Z85.3 Personal history of malignant neoplasm of breast; Z80.3 Family history of malignant neoplasm of breast; Z78.0 Asymptomatic menopausal state; Z90.722 Acquired absence of ovaries, bilateral; Z87.891 Personal history of nicotine dependence
CPT/HCPCS: 77063; 77067; 77080

== ENCOUNTER → 2021-07-02 13:42 | Outpatient (CLI) | payer MEDICARE, OTHER, SELFPAY ==
--- NOTE | 2021-07-02 | DI.MRI.S_ITS ---
PROCEDURE: MR PELVIS WO CON INDICATIONS: Unspecified disorder of synovium and tendon. Pelvic pain. TECHNIQUE: Noncontrast coronal and sagittal T1 and STIR, axial T1 and T2 with fat saturation obtained through the bony pelvis. COMPARISON: None. FINDINGS: Image quality: Excellent. Bones: Bone marrow of the pelvic ring, sacrum, and proximal femurs demonstrate normal overall signal. No bone contusions or fractures. The visualized lower lumbar spine appears normally aligned. There is a small right perineural Tarlov cyst at S1-S2 measuring approximately 1.4 cm. There are bilateral perineural Tarlov cysts at S2-S3 measuring up to 2.1 cm on the right and 1.4 cm on the left. Tendons: The gluteus medius and minimus tendons appear intact, without associated muscle atrophy. The nearby proximal iliotibial band also appears intact. The iliopsoas tendon appears intact, without adjacent bursal fluid collections or evidence for impingement syndrome. The origin of the hamstring tendon is intact at the ischial tuberosity, as well as the associated sacrotuberous ligament. The straight and reflected heads of the rectus femoris muscle origin appear intact, as well as the conjoint tendon. Soft tissues: Visualized muscles demonstrate normal bulk and internal signal. No joint effusions. No free pelvic fluid. Bladder wall thickness is normal. Genitourinary structures and bowel loops appear normal where visualized. IMPRESSION: 1. No fractures or bone contusions. 2. 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 Dictated by: Gianfranco Almendarez M.D. on 07/02/2021 at 15:10 Approved by: Gianfranco Almendarez M.D. on 07/02/2021 at 15:15
== END ==
PROVIDERS: PCP Family Medicine; Referring Provider Physical Medicine & Rehabilitation; Visit Provider Physical Medicine & Rehabilitation
DX: G96.191 Perineural cyst (principal); M67.959 Unspecified disorder of synovium and tendon, unspecified thigh; R10.2 Pelvic and perineal pain
CPT/HCPCS: 72195

== ENCOUNTER → 2022-06-02 14:23 | Outpatient (CLI) | payer MEDICARE, OTHER, SELFPAY ==
--- NOTE | 2022-06-02 14:25 | DI.MG.S_ITS ---
BILATERAL DIGITAL SCREENING MAMMOGRAM 3D/2D WITH CAD: 06/02/2022 CLINICAL: Routine screening. Personal history of left breast cancer. Comparison is made to exams dated: 05/26/2021 mammogram, 08/30/2019 mammogram, and 06/25/2018 mammogram - . There are scattered areas of fibroglandular density in both breasts (category b / 25%-50% glandular tissue). Current study was also evaluated with a Computer Aided Detection (CAD) system. There are benign post operative findings in the left breast. No significant masses, calcifications, or other findings are seen in either breast. There has been no significant interval change. IMPRESSION: BENIGN There is no mammographic evidence of malignancy. A 1 year screening mammogram is recommended. This exam was interpreted at Station ID: [id number]. NOTE: For mammograms, a report in lay terms will be sent to the patient. Approximately 15% of breast malignancies will not be visualized mammographically. In the management of a palpable breast mass, a negative mammogram must not discourage biopsy of a clinically suspicious lesion. Electronically Signed By: Paramjit severino/arline:06/02/2022 15:10:51 letter sent: Normal Exam ACR BI-RADS Category 2: Benign Finding(s) 3342F
== END ==
PROVIDERS: PCP Family Medicine; Referring Provider Family Medicine; Visit Provider Family Medicine
DX: Z12.31 Encounter for screening mammogram for malignant neoplasm of breast (principal); Z85.3 Personal history of malignant neoplasm of breast
CPT/HCPCS: 77063; 77067

== ENCOUNTER → 2023-01-28 12:46 | Outpatient (CLI) | payer MEDICARE, OTHER, SELFPAY | PROVIDERS: PCP Family Medicine; Referring Provider Family Medicine; Visit Provider Family Medicine | DX: R42 Dizziness and giddiness (principal); R00.2 Palpitations | CPT/HCPCS: 93242 ==

== ENCOUNTER → 2023-06-10 15:19 | Outpatient (CLI) | payer MEDICARE, OTHER, SELFPAY ==
--- NOTE | 2023-06-10 15:21 | DI.MG.S_ITS ---
BILATERAL DIGITAL SCREENING MAMMOGRAM 3D/2D WITH CAD: 06/10/2023 CLINICAL: Routine screening. Personal history of left breast cancer. Comparison is made to exams dated: 06/02/2022 mammogram, 05/26/2021 mammogram, and 05/21/2020 mammogram - [facility]. There are scattered areas of fibroglandular density in both breasts (category b / 25%-50% glandular tissue). Current study was also evaluated with a Computer Aided Detection (CAD) system. There are benign post operative findings in the left breast. No significant masses, calcifications, or other findings are seen in either breast. IMPRESSION: BENIGN There is no mammographic evidence of malignancy. A 1 year screening mammogram is recommended. This exam was interpreted at Station ID: [id number]. NOTE: For mammograms, a report in lay terms will be sent to the patient. Approximately 15% of breast malignancies will not be visualized mammographically. In the management of a palpable breast mass, a negative mammogram must not discourage biopsy of a clinically suspicious lesion. Electronically Signed By: Lois Michaud M.D., PH.D thuy/arline:06/11/2023 00:42:24 letter sent: Normal Exam ACR BI-RADS Category 2: Benign Finding(s) 3342F
== END ==
PROVIDERS: PCP Family Medicine; Referring Provider Family Medicine; Visit Provider Family Medicine
DX: Z12.31 Encounter for screening mammogram for malignant neoplasm of breast (principal); Z85.3 Personal history of malignant neoplasm of breast
CPT/HCPCS: 77063; 77067

== ENCOUNTER → 2023-06-11 10:08 | Outpatient (CLI) | payer MEDICARE, OTHER, SELFPAY ==
[2023-06-11 10:59] LABS: Add Manual Diff / Slide Review NO; Basophils Absolute Auto 0 /uL (0-100); Basophils Percent Auto 0.7 % (0-2); Eosinophils Absolute Auto 100 /uL (0-450); Eosinophils Percent Auto 2.6 % (2-4); Hematocrit 38.7 % (36-46); Hemoglobin 13.4 g/dL (12.0-16.0); Lymphocytes Absolute Auto 900 /uL (1100-4500); Lymphocytes Percent Auto 24.1 % (25-40); Mean Corpuscular HGB Conc 34.5 % (30-36); Mean Corpuscular Hemoglobin 31.3 PG (26-34); Mean Corpuscular Volume 90.6 fL (80-100); Monocytes Absolute Auto 400 /uL (0-900); Monocytes Percent Auto 11.9 % (3-14); Neutrophils Absolute Auto 2300 /uL (1500-7000); Neutrophils Percent Auto 60.7 % (50-75); Platelet Count 169 X10^3/uL (150-400); Red Blood Cell Count 4.27 X10^6/uL (4.0-5.2); Red Cell Distribution Width 13.9 % (11.6-14.8); White Blood Cell Count 3.7 X10^3/uL (4.5-11.0)
[2023-06-11 11:41] LABS: Alanine Aminotransferase 35 IU/L (<35); Albumin 4.1 g/dL (3.5-5.0); Albumin Globulin Ratio 1.4 (1.0-2.8); Alkaline Phosphatase 26 U/L (38-126); Aspartate Aminotransferase 32 IU/L (14-36); BUN Creatinine Ratio 21.1 (6-22); Bilirubin Total 0.6 mg/dL (0.2-1.3); Blood Urea Nitrogen 16 mg/dL (7-17); C-Reactive Protein Quant < 0.5 mg/dL (<1.0); Calcium 9.2 mg/dL (8.4-10.2); Carbon Dioxide 26 mmol/L (22-32); Chloride 104 mmol/L (98-107); Cholesterol 188 mg/dL (140-199); Estimated Glomerular Filt Rate > 60 mL/min (>60); Globulin 2.9 g/dL (1.7-4.1); Glucose 105 mg/dL (80-110); HDL Cholesterol 70 mg/dL (40-60); HEMOLYSIS < 15 (0-50); LDL Cholesterol Calculated 102 mg/dL (<100); Magnesium 2.1 mg/dL (1.6-2.3); Potassium 4.4 mmol/L (3.4-5.1); Sodium 135 mmol/L (137-145); Triglycerides 82 mg/dL (35-150)
[2023-06-11 12:04] LABS: TSH w/ Reflex to FT4 0.98 uIU/mL (0.47-4.68)
[2023-06-11 12:14] LABS: HIV 1 & 2 Ab/Ag 4th Gen Combo NEGATIVE (NEGATIVE)
[2023-06-11 13:02] LABS: Erythrocyte Sedimentation Rate 14 MM/HR (0-20)
== END ==
PROVIDERS: PCP Family Medicine; Referring Provider Family Medicine; Visit Provider Family Medicine
DX: G20.C Parkinsonism, unspecified (principal); E78.5 Hyperlipidemia, unspecified; Z86.19 Personal history of other infectious and parasitic diseases; M81.0 Age-related osteoporosis without current pathological fracture
CPT/HCPCS: 36415; 80053; 80061; 83735; 84443; 85025; 85651; 86140; 87389

== ENCOUNTER → 2023-06-23 15:22 | Outpatient (CLI) | payer MEDICARE, OTHER, SELFPAY ==
--- NOTE | 2023-06-23 15:23 | DI.RAD.S_ITS ---
Bone Density Report Name: PAULINA TAMAYO Age: 78 Sex: Female Ethnicity: White Date of : 1945 Indication: postmenopausal osteoporosis; Referring Provider: PIERRE LEIGH D.O. Study: Bone densitometry was performed. Exam Date: June 23, 2023 Accession number: [id number] Bone Density: Region BMD T-score Z-score Classification AP Spine(L1-L4) 0.699 -3.2 -0.6 Osteoporosis Femoral Neck (Left) 0.534 -2.8 -0.7 Osteoporosis Total Hip (Left) 0.686 -2.1 -0.2 Osteopenia Femoral Neck (Right) 0.551 -2.7 -0.5 Osteoporosis Total Hip (Right) 0.692 -2.0 -0.1 Osteopenia Total Hip Mean 0.689 -2.1 -0.2 Osteopenia World Health Organization criteria for BMD impression classify patients as: Normal (T-score at or above -1.0), Osteopenia (T-score between -1.0 and -2.5), or Osteoporosis (T-score at or below -2.5). 10-year Fracture Risk: FRAX not reported because: Some T-score for Spine Total or Hip Total or Femoral Neck at or below -2.5 Previous Exams: -- Region Exam Age BMD T-score BMD Change BMD Change Date g/cm2 vs Baseline vs Previous -- AP Spine (L1-L4) 06/23/2023 78 0.699 -3.2 -0.090 (-11.4%)# -0.019 (-2.7%)# 05/26/2021 76 0.718 -3.0 -0.071 (-9.0%)* 0.010 (1.3%) 05/10/2019 74 0.709 -3.1 -0.080 (-10.2%)* -0.080 (-10.2%)* 06/18/2017 72 0.789 -2.3 Total Hip(Left) 06/23/2023 78 0.686 -2.1 0.009 (1.4%)# 0.047 (7.4%)# 05/26/2021 76 0.639 -2.5 -0.038 (-5.6%)* -0.008 (-1.2%) 05/10/2019 74 0.646 -2.4 -0.030 (-4.4%)* -0.030 (-4.4%)* 06/18/2017 72 0.676 -2.2 Total Hip(Right) 06/23/2023 78 0.692 -2.0 -0.008 (-1.1%)# 0.036 (5.4%)# 05/26/2021 76 0.656 -2.3 -0.044 (-6.2%)* -0.025 (-3.7%) 05/10/2019 74 0.682 -2.1 -0.018 (-2.6%) -0.018 (-2.6%) 06/18/2017 72 0.700 -2.0 -- *Denotes significance at 95% confidence level, LSC for AP Spine = 0.022 g/cm2, LSC for Total Hip = 0.027 g/cm2 # Denotes dissimilar scan types or analysis methods Impression: The patient has osteoporosis, based on the Total Spine T-score. No significant bone loss was observed. Discussion: INCREASED RISK OF FRACTURE. BONE DENSITY IS UNDESIRABLY LOW AT ONE OR MORE SKELETAL SITES, CONSISTENT WITH POSTMENOPAUSAL OSTEOPOROSIS. This patient's lowest T-score meets the World Health Organization's (WHO) criteria for osteoporosis at one or more sites (T-score -2.5 or below). In untreated patients, the risk of osteoporotic fracture increases approximately two-fold for each 1.0 SD decrease in T-score. Low bone density is not the only risk factor for fracture; also consider factors such as patient's age, frailty or poor health, risk of falling, risk of injury, previous osteoporotic fracture, family history of osteoporosis, cigarette smoking, low body weight, etc. Not everyone with low bone mineral density has osteoporosis; osteomalacia and other metabolic bone disorders should also be considered. Patients who have osteoporosis should be evaluated for specific diseases and conditions (secondary causes) that may cause or contribute to bone loss. The [place] [employer] Endocrinologists (AACE) and National Osteoporosis Foundation (NOF) recommend pharmacologic intervention for all postmenopausal women whose T-score is in this range. The patient should follow a healthful lifestyle (good nutrition with adequate calcium and vitamin D, and appropriate weight-bearing exercise). Follow-Up: Consider a repeat BMD and Vertebral Fracture Assessment (VFA) exam in 2 years or sooner if medically necessary, to reassess this patient's status. Reported by: RENE WHITEHEAD M.D. on 06/23/2023 3:46:00 PM.
== END ==
PROVIDERS: PCP Family Medicine; Referring Provider Family Medicine; Visit Provider Family Medicine
DX: M81.0 Age-related osteoporosis without current pathological fracture (principal); Z78.0 Asymptomatic menopausal state
CPT/HCPCS: 77080

== ENCOUNTER 2023-10-25 11:15 | Outpatient (RCR) | payer MEDICARE, OTHER, SELFPAY ==
--- NOTE | 2023-09-15 09:01 | PT.OIE ---
Current Diagnoses Parkinsonism, unspecified (09/15/23) Dystonia, unspecified (09/15/23) Other abnormalities of gait and mobility (09/15/23) Repeated falls (09/15/23) Past Medical History (Last Updated 09/08/23 @ 15:44 by Enrique Arreaga DO) Abdominal pain Abdominal tenderness Anxiety about health Balance problem Cervical somatic dysfunction Cervical stenosis of spine Chronic low back pain without sciatica Chronic thoracic back pain Cranial somatic dysfunction Cystitis 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Dystonia Excessive cerumen in right ear canal Frequent falls Heart palpitations Localized papular rash Lumbar facet arthropathy Lumbar region somatic dysfunction Mixed action and resting tremor Nausea Neck pain Parkinsonism Pelvic somatic dysfunction Sacral region somatic dysfunction Scalp itch Segmental and somatic dysfunction of abdomen and other regions Segmental and somatic dysfunction of rib cage Strain of rectus abdominis muscle Supraventricular tachycardia, paroxysmal Thoracic region somatic dysfunction Past Surgical History (Last Reviewed 11/25/20 @ 08:40 by Rene Rider MD) History of cataract removal with insertion of prosthetic lens History of lumpectomy (01/10/02) S/P total abdominal hysterectomy and bilateral salpingo-oophorectomy Status post tubal ligation Visit Care Team Role Provider Type Enrique Arreaga DO Attending Provider Physician Family Provider Primary Care Provider Referring Provider Specialty: [facility] Practice Address: [address] [place] [address], [facility] Email: Physical Therapy Initial Evaluation PT-OP-A Visit Information Start: 09/13/23 13:32 Freq: Status: Active Protocol: Document 09/15/23 07:30 MB (Rec: 09/15/23 08:02 MB [id number]) Out-Patient Physical Therapy Visit Information Visit Information Visit Type Initial Evaluation Visit Note Medicare, 07/14 before progress note Visit Start Time 07:30 Visit Stop Time 08:15 Visit Number 1 Number of [employer] PRICING CONSULTANT Visits 0 Evaluation Information Evaluation Date 09/15/23 PT-OP-B Current Condition Start: 09/13/23 13:32 Freq: Status: Active Protocol: Document 09/15/23 07:30 MB (Rec: 09/15/23 08:02 MB [id number]) Current Condition History of Current Condition Onset Date 4 months of dizziness Current Complaints Muscle weakness, fatigue and dizziness History of Current Condition Pt was diagnosed with PD in 2020 and then had DIONI scan testing at in 2021 and was told to stop taking PD medication. She started declining 1.5 years after stopping medication. Pt reports dizziness, weakness, fatigue and falls. Pt describes vertigo, light- headedness, weakness and extreme muscle fatigue. She cannot lift weights anymore and she is reducing yoga to once every 7-8 days. She dystonia as well in many places in her body. She sees Dr. Guy in October. She sees him every 10 weeks. She thinks she might get Botox injections in legs to help with spasms and she gets these every 10 weeks. Pt has had 3 falls in 2023 (in 3 months). Pt does have light -headedness when getting up. 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 She is driving. She does not have a lifeline or AD . She has siblings living nearby. Pt drinks a pitcher of water a day. She drinks a decaf coffee once a day. Pt denies dizziness rolling over in the bed. Pt has never used LE compression on her legs. Treatment Goals Patient/Caregiver Goals To increase her balance PT-OP-C Subjective Start: 09/13/23 13:32 Freq: Status: Active Protocol: Document 09/15/23 07:30 MB (Rec: 09/15/23 08:02 MB [id number]) OP-PT Subjective Patient Comments Patient Comments See above Patient Questionnaires Dizziness Handicap Inventory DHI Score 38 DHI Functional Impairment 20 to 39% Impaired (Score 20- 39) Other Questionnaire Name and Score FES score: 27/64 PT-OP-D Balance Start: 09/13/23 13:32 Freq: Status: Active Protocol: Document 09/15/23 07:30 MB (Rec: 09/15/23 08:46 MB [id number]) Balance Tests Other Other Balance Tests Performed Pt has LOB and PT must catch her with getting into Romberg and then she can maintain position for 30 sec with EO and EC. LOB with getting into tandem and she cannot maintain balance with right foot behind and she requires cues for correct positioning to get left foot behind and then holds for 10 sec, pt cannot get into SLS B without LOB and she cannot maintain SLS. PT-OP-H Neuro Start: 09/13/23 13:32 Freq: Status: Active Protocol: Document 09/15/23 07:30 MB (Rec: 09/15/23 08:02 MB [id number]) Sensation Evaluation Comments Summary Comments B plantar feet feel like card board and she has decreased sensation B. She does get ankle strategy with balance testing and so PT does think that balance exercises will be helpful for pt. Coordination Evaluation Upper Extremity Tests Left Finger to Nose Test Minimal Impairment Pronation/Supination Test Normal Performance Right Finger to Nose Test Normal Performance Pronation/Supination Test Normal Performance Lower Extremity Tests Left Heel on Galindo Test Minimal Impairment Foot Tapping Test Minimal Impairment Right Heel on Galindo Test Minimal Impairment Foot Tapping Test Minimal Impairment Vital Signs Comments Vital Signs Comments Orthostatic assessment with BP and HR in LUE: supine 139/91, 72; standing 118/81, 87 (pt is very symptomatic and pt must catch her to prevent fall for supine to standing and pt takes twice to give reading); standing 1' machine will not read again. Pt reports increased heating up with mobility. PT-OP-M Strength Start: 09/15/23 08:48 Freq: Status: Active Protocol: Document 09/15/23 07:30 MB (Rec: 09/15/23 09:00 MB [id number]) Shoulder Strength Shoulder Manual Muscle Testing Bilateral Flexion 5 Normal Abduction (C5) 5 Normal Hip Strength Hip Manual Muscle Testing Bilateral Flexion (L2) 4 Good Abduction 4 Good Knee Strength Knee Manual Muscle Testing Bilateral Flexion (S2) 4+ Good+ Extension (L3) 5 Normal Ankle/Foot Strength Ankle and Foot Manual Muscle Testing Bilateral Dorsiflexion (L4) 5 Normal Toe Strength Toe Manual Muscle Testing Left Great Toe Extension 3 Fair Right Great Toe Extension 3 Fair PT-OP-O Vestibular Start: 09/13/23 13:32 Freq: Status: Active Protocol: Document 09/15/23 07:30 MB (Rec: 09/15/23 09:00 MB [id number]) Vestibular Assessment Visual Testing Smooth Pursuits Horizontal Normal Smooth Pursuits Vertical Normal Gaze Evoked Nystagmus With Fixation Negative Convergence Test WNL Vestibulo-Ocular Reflex (VOR1) Negative PT-OP-Q Treatments Start: 09/13/23 13:32 Freq: Status: Active Protocol: Document 09/15/23 07:30 MB (Rec: 09/15/23 09:00 [id number]) Self-Care/Home Management Treatment Education Patient Education Fall Risk,Safety Other Education PT ed pt and provides handout about neurogenic orthostatic hypotension and ed pt about slow transitional movements, especially in the morning and with supine to sitting and standing, good hydration and possible benefit of thigh high compression stockings if cleared by Dr. Arreaga or Dr. Guy given history of dystonia PT-OP-T Assessment and Plan Start: 09/13/23 13:32 Freq: Status: Active Protocol: Document 09/15/23 07:30 MB (Rec: 09/15/23 09:00 [id number]) Physical Therapy Assessment Rehab Potential Rehabilitation Potential Good Evaluation Complexity Number of Personal Factors/Comorbidities 1-2 Number of Body Systems Impaired 1-2 Clinical Presentation at Evaluation Unstable Impairments Impairments Activity Tolerance,Balance, Coordination,Functional Activities,Functional Mobility ,Gait,Posture,Sensation,Soft Tissue Mobility,Strength, Transfers,Vestibular Other Concerns Fall Risk High fall risk Barriers to Rehabilitation Some sort of underlying neurological disease currently distinguished as parkinsonism and dystonia, orthostatic hypotension Goals 4 Impairment Poor B hip strength Assisted Goal (LTG) Pt will present with improve B hip flexion strength to at least 4/5 to help decrease fall risk with transfers and mobility. LTG Duration 8 weeks 3 Impairment Lack of HEP Assisted Goal (LTG) Pt will perform progressive HEP with I including VOR, balance, LE strengthening and postural exercises to decrease fall risk. LTG Duration 8 weeks 2 Impairment High fall risk, 3 falls in 3 months Assistant Manager Goal (LTG) Pt will deny falls for 6 weeks to decrease risk for injury. LTG Duration 8 weeks 1 Impairment DHI score 38/100 Assisted Goal (LTG) Pt will present with DHI score no greater than 20/100 to reflect decreased dizziness to reduce fall risk and improve quality of life. LTG Duration 8 weeks Progress Towards Goals Progress Towards Goals Slow Progress due to Activity Tolerance Assessment Summary Assessment Pt is a 78 y/o female presenting with at least 4 month history of worsening weakness, falls, fatigue and dizziness. She reports muscle fatigue and weakness are most concerning and that she had to give up her gym membership. 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 She has had 3 falls in 3 months. She is orthostatic on assessment today and PT must prevent her from falling when she moves from supine to standing. Pt also reports history of dystonia and decreased sensation in her feet. She reports most weakness in upper legs. Pt sees her neurologist every 10 weeks for Botox shots in legs and feet to help with dystonia muscle tension. Pt's presentation is complex and appears to have a neurological /neurodenegerative presentation perhaps greater than just her parkinsonian symptoms of UE tremors, which she does not exhibit today during PT. Recommend trial of thigh high compression hose, at least 20-30 mmHg for orthostasis if cleared by doctor to help decrease falls. Physical Therapy Plan Frequency and Duration Frequency of Treatment 2x/Week Duration of treatment (weeks) 8 Plan of Care Start Date 09/15/23 Plan of Care End Date 11/15/23 Therapeutic Interventions Therapeutic Interventions Balance Training,Canalithic Repositioning,Coordination Training,Gait Training,Home Exercise Program,Joint Mobilizations,Manual Therapy, Neuromuscular Re-education, Patient/Caregiver Education, Self-Care/Home Management, Sensory Integration,Soft Tissue Mobilization,Taping, Therapeutic Activities, Therapeutic Exercises, Vestibular Rehabilitation Modalities Cold Pack/Ice Massage,Electric Stimulation,Hot Packs, Ultrasound Next Visit Focus/Plan Next Note Type Treatment Note Next Visit Plan Initiate further balance testing, start LE strengthening
--- NOTE | 2023-09-15 09:01 | PT.OPPOC ---
Physical, Occupational & Speech Therapy At [facility] Current Diagnoses Parkinsonism, unspecified (09/15/23) Dystonia, unspecified (09/15/23) Other abnormalities of gait and mobility (09/15/23) Repeated falls (09/15/23) Visit Care Team Role Provider Type Enrique Arreaga DO Attending Provider Physician Family Provider Primary Care Provider Referring Provider Specialty: [facility] Practice Address: [address] [place] [address], [facility] Email: Plan Of Care PT-OP-T Assessment and Plan Start: 09/13/23 13:32 Freq: Status: Active Protocol: Document 09/15/23 07:30 MB (Rec: 09/15/23 09:00 MB [id number]) Physical Therapy Assessment Rehab Potential Rehabilitation Potential Good Evaluation Complexity Number of Personal Factors/Comorbidities 1-2 Number of Body Systems Impaired 1-2 Clinical Presentation at Evaluation Unstable Impairments Impairments Activity Tolerance,Balance, Coordination,Functional Activities,Functional Mobility ,Gait,Posture,Sensation,Soft Tissue Mobility,Strength, Transfers,Vestibular Other Concerns Fall Risk High fall risk Barriers to Rehabilitation Some sort of underlying neurological disease currently distinguished as parkinsonism and dystonia, orthostatic hypotension Goals 4 Impairment Poor B hip strength Staffing Branch Manager Goal (LTG) Pt will present with improve B hip flexion strength to at least 4/5 to help decrease fall risk with transfers and mobility. LTG Duration 8 weeks 3 Impairment Lack of HEP Staffing Branch Manager Goal (LTG) Pt will perform progressive HEP with I including VOR, balance, LE strengthening and postural exercises to decrease fall risk. LTG Duration 8 weeks 2 Impairment High fall risk, 3 falls in 3 months Staffing Branch Manager Goal (LTG) Pt will deny falls for 6 weeks to decrease risk for injury. LTG Duration 8 weeks 1 Impairment DHI score 38/100 Staffing Branch Manager Goal (LTG) Pt will present with DHI score no greater than 20/100 to reflect decreased dizziness to reduce fall risk and improve quality of life. LTG Duration 8 weeks Progress Towards Goals Progress Towards Goals Slow Progress due to Activity Tolerance Assessment Summary Assessment Pt is a 78 y/o female presenting with at least 4 month history of worsening weakness, falls, fatigue and dizziness. She reports muscle fatigue and weakness are most concerning and that she had to give up her gym membership. 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 She has had 3 falls in 3 months. She is orthostatic on assessment today and PT must prevent her from falling when she moves from supine to standing. Pt also reports history of dystonia and decreased sensation in her feet. She reports most weakness in upper legs. Pt sees her neurologist every 10 weeks for Botox shots in legs and feet to help with dystonia muscle tension. Pt's presentation is complex and appears to have a neurological /neurodenegerative presentation perhaps greater than just her parkinsonian symptoms of UE tremors, which she does not exhibit today during PT. Recommend trial of thigh high compression hose, at least 20-30 mmHg for orthostasis if cleared by doctor to help decrease falls. Physical Therapy Plan Frequency and Duration Frequency of Treatment 2x/Week Duration of treatment (weeks) 8 Plan of Care Start Date 09/15/23 Plan of Care End Date 11/15/23 Therapeutic Interventions Therapeutic Interventions Balance Training,Canalithic Repositioning,Coordination Training,Gait Training,Home Exercise Program,Joint Mobilizations,Manual Therapy, Neuromuscular Re-education, Patient/Caregiver Education, Self-Care/Home Management, Sensory Integration,Soft Tissue Mobilization,Taping, Therapeutic Activities, Therapeutic Exercises, Vestibular Rehabilitation Modalities Cold Pack/Ice Massage,Electric Stimulation,Hot Packs, Ultrasound Next Visit Focus/Plan Next Note Type Treatment Note Next Visit Plan Initiate further balance testing, start LE strengthening Plan of Care Dates Plan of Care Start Date 09/15/23 Plan of Care End Date 11/15/23 Electronically Signed by: Vickie Baeza, ROMEO 09/15/23 0901 If you are in agreement with this Plan of Care, please return a signed and dated copy. I have reviewed this Plan of Care and certify that the skilled therapy services above are required to meet the patient?s needs. Physician Signature Date Printed Name and Credentials Clinical Instructor Signature Printed Name and Credentials
--- NOTE | 2023-09-20 15:58 | PT.OTN ---
Current Diagnoses Parkinsonism, unspecified (09/20/23) Dystonia, unspecified (09/20/23) Other abnormalities of gait and mobility (09/20/23) Repeated falls (09/20/23) Physical Therapy Treatment Note PT-OP-A Visit Information Start: 09/13/23 13:32 Freq: Status: Active Protocol: Document 09/20/23 15:17 MB (Rec: 09/20/23 15:58 MB [id number]) Out-Patient Physical Therapy Visit Information Visit Information Visit Type Treatment Note Visit Note Medicare, 08/14 before progress note Visit Start Time 15:17 Visit Stop Time 15:57 Visit Number 2 Number of UNDER TRIMMER Visits 0 PT-OP-B Current Condition Start: 09/13/23 13:32 Freq: Status: Active Protocol: Document 09/15/23 07:30 MB (Rec: 09/15/23 08:02 MB [id number]) Current Condition History of Current Condition Onset Date 4 months of dizziness Current Complaints Muscle weakness, fatigue and dizziness History of Current Condition Pt was diagnosed with PD in 2020 and then had DIONI scan testing at in 2021 and was told to stop taking PD medication. She started declining 1.5 years after stopping medication. Pt reports dizziness, weakness, fatigue and falls. Pt describes vertigo, light- headedness, weakness and extreme muscle fatigue. She cannot lift weights anymore and she is reducing yoga to once every 7-8 days. She dystonia as well in many places in her body. She sees Dr. Guy in October. She sees him every 10 weeks. She thinks she might get Botox injections in legs to help with spasms and she gets these every 10 weeks. Pt has had 3 falls in 2023 (in 3 months). Pt does have light -headedness when getting up. 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 She is driving. She does not have a lifeline or AD . She has siblings living nearby. Pt drinks a pitcher of water a day. She drinks a decaf coffee once a day. Pt denies dizziness rolling over in the bed. Pt has never used LE compression on her legs. Treatment Goals Patient/Caregiver Goals To increase her balance PT-OP-C Subjective Start: 09/13/23 13:32 Freq: Status: Active Protocol: Document 09/20/23 15:17 MB (Rec: 09/20/23 15:58 MB [id number]) OP-PT Subjective Patient Comments Patient Comments Pt states that she has been paying attention and noticing that every time that she stands up, she has wooshing sound in her ears and she feels dizzy. It lasts a few minutes. Pt has been taking her BP at different times of the day and is taking it when she is light-headed and notices that her BP is lower when she is light-headed. She tried to power through with gardening and felt light- headed the whole time. PT-OP-D Balance Start: 09/13/23 13:32 Freq: Status: Active Protocol: Document 09/15/23 07:30 MB (Rec: 09/15/23 08:46 MB [id number]) Balance Tests Other Other Balance Tests Performed Pt has LOB and PT must catch her with getting into [place] and then she can maintain position for 30 sec with EO and EC. LOB with getting into tandem and she cannot maintain balance with right foot behind and she requires cues for correct positioning to get left foot behind and then holds for 10 sec, pt cannot get into SLS B without LOB and she cannot maintain SLS. PT-OP-H Neuro Start: 09/13/23 13:32 Freq: Status: Active Protocol: Document 09/15/23 07:30 MB (Rec: 09/15/23 08:02 MB [id number]) Sensation Evaluation Comments Summary Comments B plantar feet feel like card board and she has decreased sensation B. She does get ankle strategy with balance testing and so PT does think that balance exercises will be helpful for pt. Coordination Evaluation Upper Extremity Tests Left Finger to Nose Test Minimal Impairment Pronation/Supination Test Normal Performance Right Finger to Nose Test Normal Performance Pronation/Supination Test Normal Performance Lower Extremity Tests Left Heel on Galindo Test Minimal Impairment Foot Tapping Test Minimal Impairment Right Heel on Gal[place] Test Minimal Impairment Foot Tapping Test Minimal Impairment Vital Signs Comments Vital Signs Comments Orthostatic assessment with BP and HR in LUE: supine 139/91, 72; standing 118/81, 87 (pt is very symptomatic and pt must catch her to prevent fall for supine to standing and pt takes twice to give reading); standing 1' machine will not read again. Pt reports increased heating up with mobility. PT-OP-M Strength Start: 09/15/23 08:48 Freq: Status: Active Protocol: Document 09/15/23 07:30 MB (Rec: 09/15/23 09:00 MB [id number]) Shoulder Strength Shoulder Manual Muscle Testing Bilateral Flexion 5 Normal Abduction (C5) 5 Normal Hip Strength Hip Manual Muscle Testing Bilateral Flexion (L2) 4 Good Abduction 4 Good Knee Strength Knee Manual Muscle Testing Bilateral Flexion (S2) 4+ Good+ Extension (L3) 5 Normal Ankle/Foot Strength Ankle and Foot Manual Muscle Testing Bilateral Dorsiflexion (L4) 5 Normal Toe Strength Toe Manual Muscle Testing Left Great Toe Extension 3 Fair Right Great Toe Extension 3 Fair PT-OP-O Vestibular Start: 09/13/23 13:32 Freq: Status: Active Protocol: Document 09/15/23 07:30 MB (Rec: 09/15/23 09:00 MB [id number]) Vestibular Assessment Visual Testing Smooth Pursuits Horizontal Normal Smooth Pursuits Vertical Normal Gaze Evoked Nystagmus With Fixation Negative Convergence Test WNL Vestibulo-Ocular Reflex (VOR1) Negative PT-OP-Q Treatments Start: 09/13/23 13:32 Freq: Status: Active Protocol: Document 09/20/23 15:17 MB (Rec: 09/20/23 15:58 MB [id number]) Therapeutic Exercises Other Exercises Reviewed [place] HEP, started tandem walking today Other Exercise Name Pt to bring in 2lb ankle weights next treatment Comments Reviewed entire exericse course, what we will work towards Therapeutic Activity Therapeutic Activity Compression hose measuring Comments PT measures pt for Jobst compression hose for orthostasis if Dr. Guy clears her: she measure size large with ankle 25 cm, 43 cm, 58 cm and ed on use at home when she is most symptomatic or traveling or sitting for a long time Neuro Re-Education Treatment Balance Activities HEP balance activities Comments FGA tasks for HEP: sliding index finger down hallway: tandem, then gait with horizontal head turns, gait with eyes closed, 1 rep of each x5 sets, perform one and then the next, all three per set FGA testing Comments FGA score is 21/30 with most challenges with narrow DOMENIC gait (unable safely), gait with horizontal head turns, gait with eye closed PT-OP-T Assessment and Plan Start: 09/13/23 13:32 Freq: Status: Active Protocol: Document 09/20/23 15:17 MB (Rec: 09/20/23 15:58 MB [id number]) Physical Therapy Assessment Rehab Potential Rehabilitation Potential Good Evaluation Complexity Number of Personal Factors/Comorbidities 1-2 Number of Body Systems Impaired 1-2 Clinical Presentation at Evaluation Unstable Impairments Impairments Activity Tolerance,Balance, Coordination,Functional Activities,Functional Mobility ,Gait,Posture,Sensation,Soft Tissue Mobility,Strength, Transfers,Vestibular Other Concerns Fall Risk High fall risk Barriers to Rehabilitation Some sort of underlying neurological disease currently distinguished as parkinsonism and dystonia, orthostatic hypotension Goals 4 Impairment Poor B hip strength Usp Goal (LTG) Pt will present with improve B hip flexion strength to at least 4/5 to help decrease fall risk with transfers and mobility. LTG Duration 8 weeks 3 Impairment Lack of HEP Hog Raiser Goal (LTG) Pt will perform progressive HEP with I including VOR, balance, LE strengthening and postural exercises to decrease fall risk. LTG Duration 8 weeks 2 Impairment High fall risk, 3 falls in 3 months Hog Raiser Goal (LTG) Pt will deny falls for 6 weeks to decrease risk for injury. LTG Duration 8 weeks 1 Impairment DHI score 38/100 Hog Raiser Goal (LTG) Pt will present with DHI score no greater than 20/100 to reflect decreased dizziness to reduce fall risk and improve quality of life. LTG Duration 8 weeks Progress Towards Goals Progress Towards Goals Slow Progress due to Activity Tolerance Assessment Summary Assessment FGA today and pt with most challenges with tandem gait, horizontal head turns and gait with EC. Reviewed plan for [facility] program and started with tandem gait today. Pt to bring in 2lb ankle weights to get started. Will add hip extension to program and band around legs for STS likely. Physical Therapy Plan Frequency and Duration Frequency of Treatment 2x/Week Duration of treatment (weeks) 8 Plan of Care Start Date 09/15/23 Plan of Care End Date 11/15/23 Therapeutic Interventions Therapeutic Interventions Balance Training,Canalithic Repositioning,Coordination Training,Gait Training,Home Exercise Program,Joint Mobilizations,Manual Therapy, Neuromuscular Re-education, Patient/Caregiver Education, Self-Care/Home Management, Sensory Integration,Soft Tissue Mobilization,Taping, Therapeutic Activities, Therapeutic Exercises, Vestibular Rehabilitation Modalities Cold Pack/Ice Massage,Electric Stimulation,Hot Packs, Ultrasound Next Visit Focus/Plan Next Note Type Treatment Note Next Visit Plan Start LE strengthening with 2 lb ankle weights, add hip extension to [place] and theraband around legs for STS, revise as needed for hip and knee pain.
--- NOTE | 2023-09-29 16:07 | PT.OTN ---
Current Diagnoses Parkinsonism, unspecified (09/29/23) Dystonia, unspecified (09/29/23) Other abnormalities of gait and mobility (09/29/23) Repeated falls (09/29/23) Physical Therapy Treatment Note PT-OP-A Visit Information Start: 09/13/23 13:32 Freq: Status: Active Protocol: Document 09/29/23 15:16 MB (Rec: 09/29/23 16:07 MB [id number]) Out-Patient Physical Therapy Visit Information Visit Information Visit Type Treatment Note Visit Note Medicare, 09/11 before progress note Visit Start Time 15:16 Visit Stop Time 16:01 Visit Number 3 Number of SENIOR QUALITY MANAGER Visits 0 PT-OP-B Current Condition Start: 09/13/23 13:32 Freq: Status: Active Protocol: Document 09/15/23 07:30 MB (Rec: 09/15/23 08:02 MB [id number]) Current Condition History of Current Condition Onset Date 4 months of dizziness Current Complaints Muscle weakness, fatigue and dizziness History of Current Condition Pt was diagnosed with PD in 2020 and then had DIONI scan testing at in 2021 and was told to stop taking PD medication. She started declining 1.5 years after stopping medication. Pt reports dizziness, weakness, fatigue and falls. Pt describes vertigo, light- headedness, weakness and extreme muscle fatigue. She cannot lift weights anymore and she is reducing yoga to once every 7-8 days. She dystonia as well in many places in her body. She sees Dr. Guy in October. She sees him every 10 weeks. She thinks she might get Botox injections in legs to help with spasms and she gets these every 10 weeks. Pt has had 3 falls in 2023 (in 3 months). Pt does have light -headedness when getting up. 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 She is driving. She does not have a lifeline or AD . She has siblings living nearby. Pt drinks a pitcher of water a day. She drinks a decaf coffee once a day. Pt denies dizziness rolling over in the bed. Pt has never used LE compression on her legs. Treatment Goals Patient/Caregiver Goals To increase her balance PT-OP-C Subjective Start: 09/13/23 13:32 Freq: Status: Active Protocol: Document 09/29/23 15:16 MB (Rec: 09/29/23 16:07 MB [id number]) OP-PT Subjective Patient Comments Patient Comments Pt states that her BP con't to be low and she is not up on her feet because she staggers and falls. She has been wearing compression hose since getting them. She does not feel that she is doing better. She is nauseated today and she has a bit of an upset stomach. Her UE tremors are worse. The exercises make her hot. PT-OP-D Balance Start: 09/13/23 13:32 Freq: Status: Active Protocol: Document 09/15/23 07:30 MB (Rec: 09/15/23 08:46 MB [id number]) Balance Tests Other Other Balance Tests Performed Pt has LOB and PT must catch her with getting into Romberg and then she can maintain position for 30 sec with EO and EC. LOB with getting into tandem and she cannot maintain balance with right foot behind and she requires cues for correct positioning to get left foot behind and then holds for 10 sec, pt cannot get into SLS B without LOB and she cannot maintain SLS. PT-OP-H Neuro Start: 09/13/23 13:32 Freq: Status: Active Protocol: Document 09/15/23 07:30 MB (Rec: 09/15/23 08:02 MB [id number]) Sensation Evaluation Comments Summary Comments B plantar feet feel like card board and she has decreased sensation B. She does get ankle strategy with balance testing and so PT does think that balance exercises will be helpful for pt. Coordination Evaluation Upper Extremity Tests Left Finger to Nose Test Minimal Impairment Pronation/Supination Test Normal Performance Right Finger to Nose Test Normal Performance Pronation/Supination Test Normal Performance Lower Extremity Tests Left Heel on [place] Test Minimal Impairment Foot Tapping Test Minimal Impairment Right Heel on [place] Test Minimal Impairment Foot Tapping Test Minimal Impairment Vital Signs Comments Vital Signs Comments Orthostatic assessment with BP and HR in LUE: supine 139/91, 72; standing 118/81, 87 (pt is very symptomatic and pt must catch her to prevent fall for supine to standing and pt takes twice to give reading); standing 1' machine will not read again. Pt reports increased heating up with mobility. PT-OP-M Strength Start: 09/15/23 08:48 Freq: Status: Active Protocol: Document 09/15/23 07:30 MB (Rec: 09/15/23 09:00 MB [id number]) Shoulder Strength Shoulder Manual Muscle Testing Bilateral Flexion 5 Normal Abduction (C5) 5 Normal Hip Strength Hip Manual Muscle Testing Bilateral Flexion (L2) 4 Good Abduction 4 Good Knee Strength Knee Manual Muscle Testing Bilateral Flexion (S2) 4+ Good+ Extension (L3) 5 Normal Ankle/Foot Strength Ankle and Foot Manual Muscle Testing Bilateral Dorsiflexion (L4) 5 Normal Toe Strength Toe Manual Muscle Testing Left Great Toe Extension 3 Fair Right Great Toe Extension 3 Fair PT-OP-O Vestibular Start: 09/13/23 13:32 Freq: Status: Active Protocol: Document 09/15/23 07:30 MB (Rec: 09/15/23 09:00 MB [id number]) Vestibular Assessment Visual Testing Smooth Pursuits Horizontal Normal Smooth Pursuits Vertical Normal Gaze Evoked Nystagmus With Fixation Negative Convergence Test WNL Vestibulo-Ocular Reflex (VOR1) Negative PT-OP-Q Treatments Start: 09/13/23 13:32 Freq: Status: Active Protocol: Document 09/29/23 15:16 MB (Rec: 09/29/23 16:07 MB [id number]) Therapeutic Exercises Sitting Exercises LAQ with ankle weights Side bilateral Resistance 2 lb Reps/Minutes 30 reps, alternating, two sets Standing Exercises STS Comments No hands and up to 30 reps and no reports of light- headedness Deep squat Comments Behind chair and up to 20 reps Heel and toe raises Side bilateral Resistance 2 lb Equipment Used Chair in front Reps/Minutes 30 reps, alternating, two sets Standing hamstring curls Side bilateral Resistance 2 lb Equipment Used Chair in front Reps/Minutes 30 reps, alternating, two sets Standing hip abduction Side bilateral Resistance 2 lb Equipment Used Chair in front Reps/Minutes 30 reps, alternating, two sets Neuro Re-Education Treatment Balance Activities SLS Comments B, up to 1', chair at side and pt can hold about 30 sec before touching foot down with right SLS and 15 sec left foot Tandem standing Comments B, up to 1', chair at side as needed PT-OP-T Assessment and Plan Start: 09/13/23 13:32 Freq: Status: Active Protocol: Document 09/29/23 15:16 MB (Rec: 09/29/23 16:07 MB [id number]) Physical Therapy Assessment Rehab Potential Rehabilitation Potential Good Evaluation Complexity Number of Personal Factors/Comorbidities 1-2 Number of Body Systems Impaired 1-2 Clinical Presentation at Evaluation Unstable Impairments Impairments Activity Tolerance,Balance, Coordination,Functional Activities,Functional Mobility ,Gait,Posture,Sensation,Soft Tissue Mobility,Strength, Transfers,Vestibular Other Concerns Fall Risk High fall risk Barriers to Rehabilitation Some sort of underlying neurological disease currently distinguished as parkinsonism and dystonia, orthostatic hypotension Goals 4 Impairment Poor B hip strength Chairman & Chief Executive Officer Goal (LTG) Pt will present with improve B hip flexion strength to at least 4/5 to help decrease fall risk with transfers and mobility. LTG Duration 8 weeks 3 Impairment Lack of HEP Senior Care Goal (LTG) Pt will perform progressive HEP with I including VOR, balance, LE strengthening and postural exercises to decrease fall risk. LTG Duration 8 weeks 2 Impairment High fall risk, 3 falls in 3 months Chairman & Chief Executive Officer Goal (LTG) Pt will deny falls for 6 weeks to decrease risk for injury. LTG Duration 8 weeks 1 Impairment DHI score 38/100 Senior Care Goal (LTG) Pt will present with DHI score no greater than 20/100 to reflect decreased dizziness to reduce fall risk and improve quality of life. LTG Duration 8 weeks Progress Towards Goals Progress Towards Goals Slow Progress due to Activity Tolerance Assessment Summary Assessment PT looks at BP numbers that pt brings in and they can be quite low, as low as 76/50 on 09/27 and she was standing. Recommend follow-up with doctor as far as medication review and treatment. Hypotension and orthostatic hypotension are barriers to PT and we are doing everything we can to address functionally as far as hydration, LE strengthening and compression. [place] today minus heel and toe walking d/t insensate feet . No light-headedness with exercises and ankle weights of 2 lb today. Physical Therapy Plan Frequency and Duration Frequency of Treatment 2x/Week Duration of treatment (weeks) 8 Plan of Care Start Date 09/15/23 Plan of Care End Date 11/15/23 Therapeutic Interventions Therapeutic Interventions Balance Training,Canalithic Repositioning,Coordination Training,Gait Training,Home Exercise Program,Joint Mobilizations,Manual Therapy, Neuromuscular Re-education, Patient/Caregiver Education, Self-Care/Home Management, Sensory Integration,Soft Tissue Mobilization,Taping, Therapeutic Activities, Therapeutic Exercises, Vestibular Rehabilitation Modalities Cold Pack/Ice Massage,Electric Stimulation,Hot Packs, Ultrasound Other Referrals/Consults Referrals/Consults Recommended Doctor to review medications regarding her low BP Next Visit Focus/Plan Next Note Type Treatment Note Next Visit Plan Balance activities and the VOR
--- NOTE | 2023-09-29 16:12 | PT.OTN ---
Current Diagnoses Parkinsonism, unspecified (09/29/23) Dystonia, unspecified (09/29/23) Other abnormalities of gait and mobility (09/29/23) Repeated falls (09/29/23) Physical Therapy Treatment Note PT-OP-A Visit Information Start: 09/13/23 13:32 Freq: Status: Active Protocol: Document 09/29/23 15:16 MB (Rec: 09/29/23 16:07 MB [id number]) Out-Patient Physical Therapy Visit Information Visit Information Visit Type Treatment Note Visit Note Medicare, 09/11 before progress note Visit Start Time 15:16 Visit Stop Time 16:01 Visit Number 3 Number of LUMBER PILER Visits 0 PT-OP-B Current Condition Start: 09/13/23 13:32 Freq: Status: Active Protocol: Document 09/15/23 07:30 MB (Rec: 09/15/23 08:02 MB [id number]) Current Condition History of Current Condition Onset Date 4 months of dizziness Current Complaints Muscle weakness, fatigue and dizziness History of Current Condition Pt was diagnosed with PD in 2020 and then had DIONI scan testing at in 2021 and was told to stop taking PD medication. She started declining 1.5 years after stopping medication. Pt reports dizziness, weakness, fatigue and falls. Pt describes vertigo, light- headedness, weakness and extreme muscle fatigue. She cannot lift weights anymore and she is reducing yoga to once every 7-8 days. She dystonia as well in many places in her body. She sees Dr. Guy in October. She sees him every 10 weeks. She thinks she might get Botox injections in legs to help with spasms and she gets these every 10 weeks. Pt has had 3 falls in 2023 (in 3 months). Pt does have light -headedness when getting up. 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 She is driving. She does not have a lifeline or AD . She has siblings living nearby. Pt drinks a pitcher of water a day. She drinks a decaf coffee once a day. Pt denies dizziness rolling over in the bed. Pt has never used LE compression on her legs. Treatment Goals Patient/Caregiver Goals To increase her balance PT-OP-C Subjective Start: 09/13/23 13:32 Freq: Status: Active Protocol: Document 09/29/23 15:16 MB (Rec: 09/29/23 16:07 MB [id number]) OP-PT Subjective Patient Comments Patient Comments Pt states that her BP con't to be low and she is not up on her feet because she staggers and falls. She has been wearing compression hose since getting them. She does not feel that she is doing better. She is nauseated today and she has a bit of an upset stomach. Her UE tremors are worse. The exercises make her hot. PT-OP-D Balance Start: 09/13/23 13:32 Freq: Status: Active Protocol: Document 09/15/23 07:30 MB (Rec: 09/15/23 08:46 MB [id number]) Balance Tests Other Other Balance Tests Performed Pt has LOB and PT must catch her with getting into Romberg and then she can maintain position for 30 sec with EO and EC. LOB with getting into tandem and she cannot maintain balance with right foot behind and she requires cues for correct positioning to get left foot behind and then holds for 10 sec, pt cannot get into SLS B without LOB and she cannot maintain SLS. PT-OP-H Neuro Start: 09/13/23 13:32 Freq: Status: Active Protocol: Document 09/15/23 07:30 MB (Rec: 09/15/23 08:02 MB [id number]) Sensation Evaluation Comments Summary Comments B plantar feet feel like card board and she has decreased sensation B. She does get ankle strategy with balance testing and so PT does think that balance exercises will be helpful for pt. Coordination Evaluation Upper Extremity Tests Left Finger to Nose Test Minimal Impairment Pronation/Supination Test Normal Performance Right Finger to Nose Test Normal Performance Pronation/Supination Test Normal Performance Lower Extremity Tests Left Heel on Galindo Test Minimal Impairment Foot Tapping Test Minimal Impairment Right Heel on Galindo Test Minimal Impairment Foot Tapping Test Minimal Impairment Vital Signs Comments Vital Signs Comments Orthostatic assessment with BP and HR in LUE: supine 139/91, 72; standing 118/81, 87 (pt is very symptomatic and pt must catch her to prevent fall for supine to standing and pt takes twice to give reading); standing 1' machine will not read again. Pt reports increased heating up with mobility. PT-OP-M Strength Start: 09/15/23 08:48 Freq: Status: Active Protocol: Document 09/15/23 07:30 MB (Rec: 09/15/23 09:00 MB [id number]) Shoulder Strength Shoulder Manual Muscle Testing Bilateral Flexion 5 Normal Abduction (C5) 5 Normal Hip Strength Hip Manual Muscle Testing Bilateral Flexion (L2) 4 Good Abduction 4 Good Knee Strength Knee Manual Muscle Testing Bilateral Flexion (S2) 4+ Good+ Extension (L3) 5 Normal Ankle/Foot Strength Ankle and Foot Manual Muscle Testing Bilateral Dorsiflexion (L4) 5 Normal Toe Strength Toe Manual Muscle Testing Left Great Toe Extension 3 Fair Right Great Toe Extension 3 Fair PT-OP-O Vestibular Start: 09/13/23 13:32 Freq: Status: Active Protocol: Document 09/15/23 07:30 MB (Rec: 09/15/23 09:00 MB [id number]) Vestibular Assessment Visual Testing Smooth Pursuits Horizontal Normal Smooth Pursuits Vertical Normal Gaze Evoked Nystagmus With Fixation Negative Convergence Test WNL Vestibulo-Ocular Reflex (VOR1) Negative PT-OP-Q Treatments Start: 09/13/23 13:32 Freq: Status: Active Protocol: Document 09/29/23 15:16 MB (Rec: 09/29/23 16:07 MB [id number]) Therapeutic Exercises Sitting Exercises LAQ with ankle weights Side bilateral Resistance 2 lb Reps/Minutes 30 reps, alternating, two sets Standing Exercises STS Comments No hands and up to 30 reps and no reports of light- headedness Deep squat Comments Behind chair and up to 20 reps Heel and toe raises Side bilateral Resistance 2 lb Equipment Used Chair in front Reps/Minutes 30 reps, alternating, two sets Standing hamstring curls Side bilateral Resistance 2 lb Equipment Used Chair in front Reps/Minutes 30 reps, alternating, two sets Standing hip abduction Side bilateral Resistance 2 lb Equipment Used Chair in front Reps/Minutes 30 reps, alternating, two sets Neuro Re-Education Treatment Balance Activities SLS Comments B, up to 1', chair at side and pt can hold about 30 sec before touching foot down with right SLS and 15 sec left foot Tandem standing Comments B, up to 1', chair at side as needed PT-OP-T Assessment and Plan Start: 09/13/23 13:32 Freq: Status: Active Protocol: Document 09/29/23 15:16 MB (Rec: 09/29/23 16:07 MB [id number]) Physical Therapy Assessment Rehab Potential Rehabilitation Potential Good Evaluation Complexity Number of Personal Factors/Comorbidities 1-2 Number of Body Systems Impaired 1-2 Clinical Presentation at Evaluation Unstable Impairments Impairments Activity Tolerance,Balance, Coordination,Functional Activities,Functional Mobility ,Gait,Posture,Sensation,Soft Tissue Mobility,Strength, Transfers,Vestibular Other Concerns Fall Risk High fall risk Barriers to Rehabilitation Some sort of underlying neurological disease currently distinguished as parkinsonism and dystonia, orthostatic hypotension Goals 4 Impairment Poor B hip strength Lozenge Maker Goal (LTG) Pt will present with improve B hip flexion strength to at least 4/5 to help decrease fall risk with transfers and mobility. LTG Duration 8 weeks 3 Impairment Lack of HEP Group Home Goal (LTG) Pt will perform progressive HEP with I including VOR, balance, LE strengthening and postural exercises to decrease fall risk. LTG Duration 8 weeks 2 Impairment High fall risk, 3 falls in 3 months Lozenge Maker Goal (LTG) Pt will deny falls for 6 weeks to decrease risk for injury. LTG Duration 8 weeks 1 Impairment DHI score 38/100 Group Home Goal (LTG) Pt will present with DHI score no greater than 20/100 to reflect decreased dizziness to reduce fall risk and improve quality of life. LTG Duration 8 weeks Progress Towards Goals Progress Towards Goals Slow Progress due to Activity Tolerance Assessment Summary Assessment PT looks at BP numbers that pt brings in and they can be quite low, as low as 76/50 on 09/27 and she was standing. Recommend follow-up with doctor as far as medication review and treatment. Hypotension and orthostatic hypotension are barriers to PT and we are doing everything we can to address functionally as far as hydration, LE strengthening and compression. [place] today minus heel and toe walking d/t insensate feet . No light-headedness with exercises and ankle weights of 2 lb today. Physical Therapy Plan Frequency and Duration Frequency of Treatment 2x/Week Duration of treatment (weeks) 8 Plan of Care Start Date 09/15/23 Plan of Care End Date 11/15/23 Therapeutic Interventions Therapeutic Interventions Balance Training,Canalithic Repositioning,Coordination Training,Gait Training,Home Exercise Program,Joint Mobilizations,Manual Therapy, Neuromuscular Re-education, Patient/Caregiver Education, Self-Care/Home Management, Sensory Integration,Soft Tissue Mobilization,Taping, Therapeutic Activities, Therapeutic Exercises, Vestibular Rehabilitation Modalities Cold Pack/Ice Massage,Electric Stimulation,Hot Packs, Ultrasound Other Referrals/Consults Referrals/Consults Recommended Doctor to review medications regarding her low BP Next Visit Focus/Plan Next Note Type Treatment Note Next Visit Plan Balance activities and the VOR
--- NOTE | 2023-10-15 12:55 | PT.OTN ---
Current Diagnoses Parkinsonism, unspecified (10/15/23) Dystonia, unspecified (10/15/23) Other abnormalities of gait and mobility (10/15/23) Repeated falls (10/15/23) Physical Therapy Treatment Note PT-OP-A Visit Information Start: 09/13/23 13:32 Freq: Status: Active Protocol: Document 10/15/23 12:00 DCW (Rec: 10/15/23 12:54 DCW [id number]) Out-Patient Physical Therapy Visit Information Visit Information Visit Type Treatment Note Visit Note Medicare, 10/12 before progress note Visit Start Time 12:00 Visit Stop Time 12:50 Visit Number 4 Number of ELECTRICAL FITTER Visits 0 PT-OP-B Current Condition Start: 09/13/23 13:32 Freq: Status: Active Protocol: Document 09/15/23 07:30 MB (Rec: 09/15/23 08:02 MB [id number]) Current Condition History of Current Condition Onset Date 4 months of dizziness Current Complaints Muscle weakness, fatigue and dizziness History of Current Condition Pt was diagnosed with PD in 2020 and then had DIONI scan testing at in 2021 and was told to stop taking PD medication. She started declining 1.5 years after stopping medication. Pt reports dizziness, weakness, fatigue and falls. Pt describes vertigo, light- headedness, weakness and extreme muscle fatigue. She cannot lift weights anymore and she is reducing yoga to once every 7-8 days. She dystonia as well in many places in her body. She sees Dr. Guy in October. She sees him every 10 weeks. She thinks she might get Botox injections in legs to help with spasms and she gets these every 10 weeks. Pt has had 3 falls in 2023 (in 3 months). Pt does have light -headedness when getting up. 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 She is driving. She does not have a lifeline or AD . She has siblings living nearby. Pt drinks a pitcher of water a day. She drinks a decaf coffee once a day. Pt denies dizziness rolling over in the bed. Pt has never used LE compression on her legs. Treatment Goals Patient/Caregiver Goals To increase her balance PT-OP-C Subjective Start: 09/13/23 13:32 Freq: Status: Active Protocol: Document 10/15/23 12:00 DCW (Rec: 10/15/23 12:54 DCW [id number]) OP-PT Subjective Patient Comments Patient Comments Pt admits she is dizzy, reports BP was 86/59, which it pretty much every day. BP in clinic measured at 96/60. PT-OP-D Balance Start: 09/13/23 13:32 Freq: Status: Active Protocol: Document 09/15/23 07:30 MB (Rec: 09/15/23 08:46 MB [id number]) Balance Tests Other Other Balance Tests Performed Pt has LOB and PT must catch her with getting into Romberg and then she can maintain position for 30 sec with EO and EC. LOB with getting into tandem and she cannot maintain balance with right foot behind and she requires cues for correct positioning to get left foot behind and then holds for 10 sec, pt cannot get into SLS B without LOB and she cannot maintain SLS. PT-OP-H Neuro Start: 09/13/23 13:32 Freq: Status: Active Protocol: Document 09/15/23 07:30 MB (Rec: 09/15/23 08:02 MB [id number]) Sensation Evaluation Comments Summary Comments B plantar feet feel like card board and she has decreased sensation B. She does get ankle strategy with balance testing and so PT does think that balance exercises will be helpful for pt. Coordination Evaluation Upper Extremity Tests Left Finger to Nose Test Minimal Impairment Pronation/Supination Test Normal Performance Right Finger to Nose Test Normal Performance Pronation/Supination Test Normal Performance Lower Extremity Tests Left Heel on Gal[place] Test Minimal Impairment Foot Tapping Test Minimal Impairment Right Heel on [place] Test Minimal Impairment Foot Tapping Test Minimal Impairment Vital Signs Comments Vital Signs Comments Orthostatic assessment with BP and HR in LUE: supine 139/91, 72; standing 118/81, 87 (pt is very symptomatic and pt must catch her to prevent fall for supine to standing and pt takes twice to give reading); standing 1' machine will not read again. Pt reports increased heating up with mobility. PT-OP-M Strength Start: 09/15/23 08:48 Freq: Status: Active Protocol: Document 09/15/23 07:30 MB (Rec: 09/15/23 09:00 MB [id number]) Shoulder Strength Shoulder Manual Muscle Testing Bilateral Flexion 5 Normal Abduction (C5) 5 Normal Hip Strength Hip Manual Muscle Testing Bilateral Flexion (L2) 4 Good Abduction 4 Good Knee Strength Knee Manual Muscle Testing Bilateral Flexion (S2) 4+ Good+ Extension (L3) 5 Normal Ankle/Foot Strength Ankle and Foot Manual Muscle Testing Bilateral Dorsiflexion (L4) 5 Normal Toe Strength Toe Manual Muscle Testing Left Great Toe Extension 3 Fair Right Great Toe Extension 3 Fair PT-OP-O Vestibular Start: 09/13/23 13:32 Freq: Status: Active Protocol: Document 09/15/23 07:30 MB (Rec: 09/15/23 09:00 MB [id number]) Vestibular Assessment Visual Testing Smooth Pursuits Horizontal Normal Smooth Pursuits Vertical Normal Gaze Evoked Nystagmus With Fixation Negative Convergence Test WNL Vestibulo-Ocular Reflex (VOR1) Negative PT-OP-Q Treatments Start: 09/13/23 13:32 Freq: Status: Active Protocol: Document 10/15/23 12:00 DCW (Rec: 10/15/23 12:54 DCW [id number]) Neuro Re-Education Treatment Vestibular Rehabilitation X1 Viewing Details Static target, head turns Distance From Target Arm's length Speed as tolerated Position sitting VOR Retraining Details VOR Cancellation Distance From Target Arm's length Speed as tolerated Position sitting Self-Care/Home Management Treatment Education Other Education Spent significant time today educating patient of A&P of inner ear and balance reflexes (VOR, VSR). Importance of balance challenges and various balance-related body systems PT-OP-T Assessment and Plan Start: 09/13/23 13:32 Freq: Status: Active Protocol: Document 10/15/23 12:00 DCW (Rec: 10/15/23 12:54 DCW [id number]) Physical Therapy Assessment Impairments Impairments Activity Tolerance,Balance, Coordination,Functional Activities,Functional Mobility ,Gait,Posture,Sensation,Soft Tissue Mobility,Strength, Transfers,Vestibular Other Concerns Fall Risk High fall risk Barriers to Rehabilitation Some sort of underlying neurological disease currently distinguished as parkinsonism and dystonia, orthostatic hypotension Goals 4 Impairment Poor B hip strength [facility] Goal (LTG) Pt will present with improve B hip flexion strength to at least 4/5 to help decrease fall risk with transfers and mobility. LTG Duration 8 weeks 3 Impairment Lack of HEP Diesel Engine Tester Goal (LTG) Pt will perform progressive HEP with I including VOR, balance, LE strengthening and postural exercises to decrease fall risk. LTG Duration 8 weeks 2 Impairment High fall risk, 3 falls in 3 months [facility] Goal (LTG) Pt will deny falls for 6 weeks to decrease risk for injury. LTG Duration 8 weeks 1 Impairment DHI score 38/100 [facility] Goal (LTG) Pt will present with DHI score no greater than 20/100 to reflect decreased dizziness to reduce fall risk and improve quality of life. LTG Duration 8 weeks Progress Towards Goals Progress Towards Goals Slow Progress due to Activity Tolerance Assessment Summary Assessment Pt continues to exhibit hypotension in standing and sitting, performed some vestibular rehab today, but spent majority of time answering pt questions and educating importance of balance challenges and strengthen to improve safety long-term Physical Therapy Plan Frequency and Duration Frequency of Treatment 2x/Week Duration of treatment (weeks) 8 Plan of Care Start Date 09/15/23 Plan of Care End Date 11/15/23 Therapeutic Interventions Therapeutic Interventions Balance Training,Canalithic Repositioning,Coordination Training,Gait Training,Home Exercise Program,Joint Mobilizations,Manual Therapy, Neuromuscular Re-education, Patient/Caregiver Education, Self-Care/Home Management, Sensory Integration,Soft Tissue Mobilization,Taping, Therapeutic Activities, Therapeutic Exercises, Vestibular Rehabilitation Modalities Cold Pack/Ice Massage,Electric Stimulation,Hot Packs, Ultrasound Other Referrals/Consults Referrals/Consults Recommended Doctor to review medications regarding her low BP Next Visit Focus/Plan Next Note Type Treatment Note Next Visit Plan Balance activities and the VOR
--- NOTE | 2023-10-21 12:46 | PT.OTN ---
Current Diagnoses Parkinsonism, unspecified (10/21/23) Dystonia, unspecified (10/21/23) Other abnormalities of gait and mobility (10/21/23) Repeated falls (10/21/23) Physical Therapy Treatment Note PT-OP-A Visit Information Start: 09/13/23 13:32 Freq: Status: Active Protocol: Document 10/21/23 12:00 DCW (Rec: 10/21/23 12:46 DCW [id number]) Out-Patient Physical Therapy Visit Information Visit Information Visit Type Treatment Note Visit Note Medicare, 11/11 before progress note Visit Start Time 12:00 Visit Stop Time 12:45 Visit Number 5 Number of SOCIOLOGY PROFESSOR Visits 0 Precautions Precautions In-clinic BP reading today 106 /71 seated. PT-OP-B Current Condition Start: 09/13/23 13:32 Freq: Status: Active Protocol: Document 09/15/23 07:30 MB (Rec: 09/15/23 08:02 MB [id number]) Current Condition History of Current Condition Onset Date 4 months of dizziness Current Complaints Muscle weakness, fatigue and dizziness History of Current Condition Pt was diagnosed with PD in 2020 and then had DIONI scan testing at in 2021 and was told to stop taking PD medication. She started declining 1.5 years after stopping medication. Pt reports dizziness, weakness, fatigue and falls. Pt describes vertigo, light- headedness, weakness and extreme muscle fatigue. She cannot lift weights anymore and she is reducing yoga to once every 7-8 days. She dystonia as well in many places in her body. She sees Dr. Guy in October. She sees him every 10 weeks. She thinks she might get Botox injections in legs to help with spasms and she gets these every 10 weeks. Pt has had 3 falls in 2023 (in 3 months). Pt does have light -headedness when getting up. 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 She is driving. She does not have a lifeline or AD . She has siblings living nearby. Pt drinks a pitcher of water a day. She drinks a decaf coffee once a day. Pt denies dizziness rolling over in the bed. Pt has never used LE compression on her legs. Treatment Goals Patient/Caregiver Goals To increase her balance PT-OP-C Subjective Start: 09/13/23 13:32 Freq: Status: Active Protocol: Document 10/21/23 12:00 DCW (Rec: 10/21/23 12:46 DCW [id number]) OP-PT Subjective Patient Comments Patient Comments Pt actually feeling pretty good today. PT-OP-D Balance Start: 09/13/23 13:32 Freq: Status: Active Protocol: Document 09/15/23 07:30 MB (Rec: 09/15/23 08:46 MB [id number]) Balance Tests Other Other Balance Tests Performed Pt has LOB and PT must catch her with getting into Romberg and then she can maintain position for 30 sec with EO and EC. LOB with getting into tandem and she cannot maintain balance with right foot behind and she requires cues for correct positioning to get left foot behind and then holds for 10 sec, pt cannot get into SLS B without LOB and she cannot maintain SLS. PT-OP-H Neuro Start: 09/13/23 13:32 Freq: Status: Active Protocol: Document 09/15/23 07:30 MB (Rec: 09/15/23 08:02 MB [id number]) Sensation Evaluation Comments Summary Comments B plantar feet feel like card board and she has decreased sensation B. She does get ankle strategy with balance testing and so PT does think that balance exercises will be helpful for pt. Coordination Evaluation Upper Extremity Tests Left Finger to Nose Test Minimal Impairment Pronation/Supination Test Normal Performance Right Finger to Nose Test Normal Performance Pronation/Supination Test Normal Performance Lower Extremity Tests Left Heel on Galindo Test Minimal Impairment Foot Tapping Test Minimal Impairment Right Heel on Galindo Test Minimal Impairment Foot Tapping Test Minimal Impairment Vital Signs Comments Vital Signs Comments Orthostatic assessment with BP and HR in LUE: supine 139/91, 72; standing 118/81, 87 (pt is very symptomatic and pt must catch her to prevent fall for supine to standing and pt takes twice to give reading); standing 1' machine will not read again. Pt reports increased heating up with mobility. PT-OP-M Strength Start: 09/15/23 08:48 Freq: Status: Active Protocol: Document 09/15/23 07:30 MB (Rec: 09/15/23 09:00 MB [id number]) Shoulder Strength Shoulder Manual Muscle Testing Bilateral Flexion 5 Normal Abduction (C5) 5 Normal Hip Strength Hip Manual Muscle Testing Bilateral Flexion (L2) 4 Good Abduction 4 Good Knee Strength Knee Manual Muscle Testing Bilateral Flexion (S2) 4+ Good+ Extension (L3) 5 Normal Ankle/Foot Strength Ankle and Foot Manual Muscle Testing Bilateral Dorsiflexion (L4) 5 Normal Toe Strength Toe Manual Muscle Testing Left Great Toe Extension 3 Fair Right Great Toe Extension 3 Fair PT-OP-O Vestibular Start: 09/13/23 13:32 Freq: Status: Active Protocol: Document 09/15/23 07:30 MB (Rec: 09/15/23 09:00 MB [id number]) Vestibular Assessment Visual Testing Smooth Pursuits Horizontal Normal Smooth Pursuits Vertical Normal Gaze Evoked Nystagmus With Fixation Negative Convergence Test WNL Vestibulo-Ocular Reflex (VOR1) Negative PT-OP-Q Treatments Start: 09/13/23 13:32 Freq: Status: Active Protocol: Document 10/21/23 12:00 DCW (Rec: 10/21/23 12:46 DCW [id number]) Gym Equipment Shuttle Balance Red Details WBOS, Staggered Neuro Re-Education Treatment Balance Activities Dynamic Gait Details Gait in Hallway Comments Horizontal, Vertical, Diagonal head turns (metronome 110 bpm ) Vestibular Rehabilitation Corrective Saccades Details Eyes, then head Distance From Target Arm's length Speed as tolerated Position sitting X2 Viewing Details Head and target moving in opposite directions Distance From Target Arm's length Speed as tolerated Position sitting PT-OP-T Assessment and Plan Start: 09/13/23 13:32 Freq: Status: Active Protocol: Document 10/21/23 12:00 DCW (Rec: 10/21/23 12:46 DCW [id number]) Physical Therapy Assessment Impairments Impairments Activity Tolerance,Balance, Coordination,Functional Activities,Functional Mobility ,Gait,Posture,Sensation,Soft Tissue Mobility,Strength, Transfers,Vestibular Other Concerns Fall Risk High fall risk Barriers to Rehabilitation Some sort of underlying neurological disease currently distinguished as parkinsonism and dystonia, orthostatic hypotension Goals 4 Impairment Poor B hip strength [facility]iary Goal (LTG) Pt will present with improve B hip flexion strength to at least 4/5 to help decrease fall risk with transfers and mobility. LTG Duration 8 weeks 3 Impairment Lack of HEP Penitentiary Goal (LTG) Pt will perform progressive HEP with I including VOR, balance, LE strengthening and postural exercises to decrease fall risk. LTG Duration 8 weeks 2 Impairment High fall risk, 3 falls in 3 months Tire Mounter Goal (LTG) Pt will deny falls for 6 weeks to decrease risk for injury. LTG Duration 8 weeks 1 Impairment DHI score 38/100 Tire Mounter Goal (LTG) Pt will present with DHI score no greater than 20/100 to reflect decreased dizziness to reduce fall risk and improve quality of life. LTG Duration 8 weeks Progress Towards Goals Progress Towards Goals Slow Progress due to Activity Tolerance Assessment Summary Assessment Pt showing good tolerance with minimal effects to symptoms with vestibular challenges. Pt feeling much better overall today, and exhibited a much higher than usual blood pressure upon entering clinic (106/71), which likely impacted her feelings of increased stability. Discussed plan for next visits, pt feels due to neurodegenerative changes associated with Parkinsonism, biggest limiting factors are really strength and general balance. Will plan to focus more next visit on HEP additions than can help with these limitations Physical Therapy Plan Frequency and Duration Frequency of Treatment 2x/Week Duration of treatment (weeks) 8 Plan of Care Start Date 09/15/23 Plan of Care End Date 11/15/23 Therapeutic Interventions Therapeutic Interventions Balance Training,Canalithic Repositioning,Coordination Training,Gait Training,Home Exercise Program,Joint Mobilizations,Manual Therapy, Neuromuscular Re-education, Patient/Caregiver Education, Self-Care/Home Management, Sensory Integration,Soft Tissue Mobilization,Taping, Therapeutic Activities, Therapeutic Exercises, Vestibular Rehabilitation Modalities Cold Pack/Ice Massage,Electric Stimulation,Hot Packs, Ultrasound Other Referrals/Consults Referrals/Consults Recommended Doctor to review medications regarding her low BP Next Visit Focus/Plan Next Note Type Treatment Note Next Visit Plan Balance activities and the VOR
--- NOTE | 2023-10-25 12:00 | PT.OTN ---
Current Diagnoses Parkinsonism, unspecified (10/25/23) Dystonia, unspecified (10/25/23) Other abnormalities of gait and mobility (10/25/23) Repeated falls (10/25/23) Physical Therapy Treatment Note PT-OP-A Visit Information Start: 09/13/23 13:32 Freq: Status: Active Protocol: Document 10/25/23 11:15 DCW (Rec: 10/25/23 12:00 DCW [id number]) Out-Patient Physical Therapy Visit Information Visit Information Visit Type Discharge Summary Visit Note Medicare, 12/12 before progress note Visit Start Time 11:15 Visit Stop Time 12:00 Visit Number 6 Number of BONDING MACHINE TENDER Visits 0 Precautions Precautions In-clinic BP reading today 118 /68 seated. PT-OP-B Current Condition Start: 09/13/23 13:32 Freq: Status: Active Protocol: Document 09/15/23 07:30 MB (Rec: 09/15/23 08:02 MB [id number]) Current Condition History of Current Condition Onset Date 4 months of dizziness Current Complaints Muscle weakness, fatigue and dizziness History of Current Condition Pt was diagnosed with PD in 2020 and then had DIONI scan testing at in 2021 and was told to stop taking PD medication. She started declining 1.5 years after stopping medication. Pt reports dizziness, weakness, fatigue and falls. Pt describes vertigo, light- headedness, weakness and extreme muscle fatigue. She cannot lift weights anymore and she is reducing yoga to once every 7-8 days. She dystonia as well in many places in her body. She sees Dr. Guy in October. She sees him every 10 weeks. She thinks she might get Botox injections in legs to help with spasms and she gets these every 10 weeks. Pt has had 3 falls in 2023 (in 3 months). Pt does have light -headedness when getting up. 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 She is driving. She does not have a lifeline or AD . She has siblings living nearby. Pt drinks a pitcher of water a day. She drinks a decaf coffee once a day. Pt denies dizziness rolling over in the bed. Pt has never used LE compression on her legs. Treatment Goals Patient/Caregiver Goals To increase her balance PT-OP-C Subjective Start: 09/13/23 13:32 Freq: Status: Active Protocol: Document 10/25/23 11:15 DCW (Rec: 10/25/23 12:00 DCW [id number]) OP-PT Subjective Patient Comments Patient Comments I've been doing all the eyeball work, it's going well, but it's not really a challenge. PT-OP-D Balance Start: 09/13/23 13:32 Freq: Status: Active Protocol: Document 09/15/23 07:30 MB (Rec: 09/15/23 08:46 MB [id number]) Balance Tests Other Other Balance Tests Performed Pt has LOB and PT must catch her with getting into Romberg and then she can maintain position for 30 sec with EO and EC. LOB with getting into tandem and she cannot maintain balance with right foot behind and she requires cues for correct positioning to get left foot behind and then holds for 10 sec, pt cannot get into SLS B without LOB and she cannot maintain SLS. PT-OP-H Neuro Start: 09/13/23 13:32 Freq: Status: Active Protocol: Document 09/15/23 07:30 MB (Rec: 09/15/23 08:02 MB [id number]) Sensation Evaluation Comments Summary Comments B plantar feet feel like card board and she has decreased sensation B. She does get ankle strategy with balance testing and so PT does think that balance exercises will be helpful for pt. Coordination Evaluation Upper Extremity Tests Left Finger to Nose Test Minimal Impairment Pronation/Supination Test Normal Performance Right Finger to Nose Test Normal Performance Pronation/Supination Test Normal Performance Lower Extremity Tests Left Heel on Galindo Test Minimal Impairment Foot Tapping Test Minimal Impairment Right Heel on Galindo Test Minimal Impairment Foot Tapping Test Minimal Impairment Vital Signs Comments Vital Signs Comments Orthostatic assessment with BP and HR in LUE: supine 139/91, 72; standing 118/81, 87 (pt is very symptomatic and pt must catch her to prevent fall for supine to standing and pt takes twice to give reading); standing 1' machine will not read again. Pt reports increased heating up with mobility. PT-OP-M Strength Start: 09/15/23 08:48 Freq: Status: Active Protocol: Document 09/15/23 07:30 MB (Rec: 09/15/23 09:00 MB [id number]) Shoulder Strength Shoulder Manual Muscle Testing Bilateral Flexion 5 Normal Abduction (C5) 5 Normal Hip Strength Hip Manual Muscle Testing Bilateral Flexion (L2) 4 Good Abduction 4 Good Knee Strength Knee Manual Muscle Testing Bilateral Flexion (S2) 4+ Good+ Extension (L3) 5 Normal Ankle/Foot Strength Ankle and Foot Manual Muscle Testing Bilateral Dorsiflexion (L4) 5 Normal Toe Strength Toe Manual Muscle Testing Left Great Toe Extension 3 Fair Right Great Toe Extension 3 Fair PT-OP-O Vestibular Start: 09/13/23 13:32 Freq: Status: Active Protocol: Document 09/15/23 07:30 MB (Rec: 09/15/23 09:00 MB [id number]) Vestibular Assessment Visual Testing Smooth Pursuits Horizontal Normal Smooth Pursuits Vertical Normal Gaze Evoked Nystagmus With Fixation Negative Convergence Test WNL Vestibulo-Ocular Reflex (VOR1) Negative PT-OP-Q Treatments Start: 09/13/23 13:32 Freq: Status: Active Protocol: Document 10/25/23 11:15 DCW (Rec: 10/25/23 12:00 DCW [id number]) Gym Equipment Shuttle Balance Red Details WBOS, Staggered, Lateral weight shift Therapeutic Exercises Other Exercises Resisted Ambulation Other Exercise Name Resisted side-stepping Resistance Lv 3 Neuro Re-Education Treatment Balance Activities Dynamic Gait Details Gait in Hallway Comments Tandem Ambulation Retro Ambulation PT-OP-T Assessment and Plan Start: 09/13/23 13:32 Freq: Status: Active Protocol: Document 10/25/23 11:15 DCW (Rec: 10/25/23 12:00 DCW [id number]) Physical Therapy Assessment Impairments Impairments Activity Tolerance,Balance, Coordination,Functional Activities,Functional Mobility ,Gait,Posture,Sensation,Soft Tissue Mobility,Strength, Transfers,Vestibular Other Concerns Fall Risk High fall risk Barriers to Rehabilitation Some sort of underlying neurological disease currently distinguished as parkinsonism and dystonia, orthostatic hypotension Goals 4 Impairment Poor B hip strength Ammonia Solution Preparer Goal (LTG) Pt will present with improve B hip flexion strength to at least 4/5 to help decrease fall risk with transfers and mobility. LTG Duration 8 weeks 3 Impairment Lack of HEP [facility] Goal (LTG) Pt will perform progressive HEP with I including VOR, balance, LE strengthening and postural exercises to decrease fall risk. LTG Duration 8 weeks 2 Impairment High fall risk, 3 falls in 3 months Ammonia Solution Preparer Goal (LTG) Pt will deny falls for 6 weeks to decrease risk for injury. LTG Duration 8 weeks 1 Impairment DHI score 38/100 [facility] Goal (LTG) Pt will present with DHI score no greater than 20/100 to reflect decreased dizziness to reduce fall risk and improve quality of life. LTG Duration 8 weeks Progress Towards Goals Progress Towards Goals Slow Progress due to Activity Tolerance Assessment Summary Assessment At this point, pt feeling pretty comfortable with balance and vestibular exercises. Pt feels that she will get most benefit from stabilization of bloop pressure, would like to follow up with PCP and Neurologist, hoping to get new referral for Bias Cutting Machine Operator Vertical. Pt notes that she is comfortable with discharge at this time, will plan to return to PT in the future at a later date with a new referral if needed. Pt to discharge to independent HEP. Physical Therapy Plan Frequency and Duration Frequency of Treatment 2x/Week Duration of treatment (weeks) 8 Plan of Care Start Date 09/15/23 Plan of Care End Date 11/15/23 Therapeutic Interventions Therapeutic Interventions Balance Training,Canalithic Repositioning,Coordination Training,Gait Training,Home Exercise Program,Joint Mobilizations,Manual Therapy, Neuromuscular Re-education, Patient/Caregiver Education, Self-Care/Home Management, Sensory Integration,Soft Tissue Mobilization,Taping, Therapeutic Activities, Therapeutic Exercises, Vestibular Rehabilitation Modalities Cold Pack/Ice Massage,Electric Stimulation,Hot Packs, Ultrasound Next Visit Focus/Plan Next Note Type Treatment Note Next Visit Plan Balance activities and the VOR
== END 2023-11-04 12:00 ==
LOC: PHYS 11:15
PROVIDERS: Family Provider Family Medicine; PCP Family Medicine; Referring Provider Family Medicine; Visit Provider Family Medicine
DX: G20.C Parkinsonism, unspecified (principal); G24.9 Dystonia, unspecified; R26.89 Other abnormalities of gait and mobility; R29.6 Repeated falls
CPT/HCPCS: 97110; 97112; 97161; 97530; 97535

== ENCOUNTER → 2024-01-28 07:15 | Outpatient (CLI) | payer MEDICARE, OTHER, SELFPAY ==
[2024-01-28 07:51] LABS: Hematocrit 37.6 % (36-46); Mean Corpuscular HGB Conc 34.7 % (30-36); Mean Corpuscular Hemoglobin 31.9 PG (26-34); Mean Corpuscular Volume 91.8 fL (80-100); Platelet Count 148 X10^3/uL (150-400); Red Blood Cell Count 4.09 X10^6/uL (4.0-5.2); Red Cell Distribution Width 13.1 % (11.6-14.8); White Blood Cell Count 5.1 X10^3/uL (4.5-11.0)
[2024-01-28 08:07] LABS: Alanine Aminotransferase 17 IU/L (<35); Albumin 4.1 g/dL (3.5-5.0); Albumin Globulin Ratio 1.8 (1.0-2.8); Alkaline Phosphatase 23 U/L (38-126); Aspartate Aminotransferase 19 IU/L (14-36); BUN Creatinine Ratio 12.9 (6-22); Bilirubin Total 0.7 mg/dL (0.2-1.3); Blood Urea Nitrogen 11 mg/dL (7-17); Calcium 9.2 mg/dL (8.4-10.2); Carbon Dioxide 23 mmol/L (22-32); Chloride 108 mmol/L (98-107); Estimated Glomerular Filt Rate > 60 mL/min (>60); Globulin 2.3 g/dL (1.7-4.1); Glucose 96 mg/dL (80-110); HEMOLYSIS < 15 (0-50); Potassium 4.2 mmol/L (3.4-5.1); Sodium 137 mmol/L (137-145); Total Protein 6.4 g/dL (6.3-8.2)
[2024-01-28 08:35] LABS: Cortisol AM (Before 10AM) 17.3 ug/dL (4.46-22.7); Thyroid Stimulating Hormone 1.71 uIU/mL (0.47-4.68)
== END ==
PROVIDERS: Family Provider Family Medicine; PCP Family Medicine; Referring Provider Internal Medicine Cardiovascular Disease; Visit Provider Internal Medicine Cardiovascular Disease
DX: R00.0 Tachycardia, unspecified (principal); I95.1 Orthostatic hypotension
CPT/HCPCS: 36415; 80053; 82533; 84443; 85027

== ENCOUNTER → 2024-06-13 15:46 | Outpatient (CLI) | payer MEDICARE, OTHER, SELFPAY ==
--- NOTE | 2024-06-13 15:47 | DI.MG.S_ITS ---
BILATERAL DIGITAL SCREENING MAMMOGRAM 3D/2D WITH CAD POST LUMPECTOMY: 06/13/2024 CLINICAL: Routine screening. Personal history of left breast cancer. Comparison is made to exams dated: 06/10/2023 mammogram, 06/02/2022 mammogram, and 05/26/2021 mammogram - [facility]. There are scattered areas of fibroglandular density (category b / 25%-50% glandular tissue). Current study was also evaluated with a Computer Aided Detection (CAD) system. There are benign post operative findings in the left breast. No significant masses, calcifications, or other findings are seen in either breast. There has been no significant interval change. IMPRESSION: BENIGN There is no mammographic evidence of malignancy. A 1 year screening mammogram is recommended. This exam was interpreted at Station ID: [id number]. NOTE: For mammograms, a report in lay terms will be sent to the patient. Approximately 15% of breast malignancies will not be visualized mammographically. In the management of a palpable breast mass, a negative mammogram must not discourage biopsy of a clinically suspicious lesion. Electronically Signed By: Elvia horowitz/arline:06/14/2024 09:00:35 letter sent: Normal Exam ACR BI-RADS Category 2: Benign
== END ==
PROVIDERS: Family Provider Family Medicine; PCP Family Medicine; Referring Provider Family Medicine; Visit Provider Family Medicine
DX: Z12.31 Encounter for screening mammogram for malignant neoplasm of breast (principal); Z85.3 Personal history of malignant neoplasm of breast
CPT/HCPCS: 77063; 77067

== ENCOUNTER → 2024-09-04 12:34 | Outpatient (CLI) | payer MEDICARE, OTHER, SELFPAY ==
[2024-09-04 13:39] LABS: Free T3, Triiodothyronine Free 3.55 pg/mL (2.77-5.27); Free T4, Direct Thyroxine 0.98 ng/dL (0.78-2.19)
[2024-09-04 13:53] LABS: Thyroid Stimulating Hormone 0.917 uIU/mL (0.47-4.68)
== END ==
PROVIDERS: Family Provider Family Medicine; PCP Family Medicine; Referring Provider Family Medicine; Visit Provider Family Medicine
DX: R00.2 Palpitations (principal); I95.9 Hypotension, unspecified
CPT/HCPCS: 36415; 84439; 84443; 84481

== ENCOUNTER → 2024-11-20 11:30 | Outpatient (CLI) | payer MEDICARE, OTHER, SELFPAY ==
[2024-11-20 12:41] LABS: Vitamin D 25 Hydroxy (D3) 38.1 ng/mL (30.0-100.0)
[2024-11-20 13:31] LABS: Folate 6.8 ng/mL (2.76-20.0); Vitamin B12 948 pg/mL (239-931)
== END ==
PROVIDERS: Family Provider Family Medicine; PCP Family Medicine; Referring Provider Registered Nurse; Visit Provider Registered Nurse
DX: E55.9 Vitamin D deficiency, unspecified (principal); G90.1 Familial dysautonomia [Riley-Day]; R25.1 Tremor, unspecified; I95.1 Orthostatic hypotension
CPT/HCPCS: 36415; 82306; 82607; 82746

== ENCOUNTER 2025-03-09 08:58 | Inpatient (IN) | payer MEDICARE, OTHER, SELFPAY ==
[2025-03-09] VITALS (17 sets, daily range): BP systolic 111–185; BP diastolic 55–101; PULSE 65–86; RESP 10–19; TEMP 36.4–37.5; O2SAT 92–99
--- NOTE | 2025-03-09 | PATH_ITS ---
[facility] Accession Number: [id number] No. of containers..01 Tissue . 01 Material submitted: . appendix - APPENDIX . 01 Diagnosis: APPENDIX, APPENDECTOMY: Acute suppurative appendicitis and acute serositis. Negative for dysplasia or malignancy. [facility] 03/14/2025 1049 Local . 01 Electronically signed: . Joey Lira MD, Pathologist NPI- [id number] . 01 Gross description: . Received in formalin with two identifiers and appendix, is a pedersen vermiform appendix 6.7 cm in length by 1.0 cm in average diameter. The serosa is pedersen and diffusely ragged with minimal mesoappendix. The margin closest to the staple line is inked blue. A purple suture is tied circumferentially around the appendix near the distal end with no designation per the requisition. The lumen averages 0.2 cm in diameter and is filled with brown semi-solid fecal material. The gross average 0.3 cm thick with no perforations of lesions identified. Superintendent Factory sections to include the margin, entire bisected distal tip, and cross-sections are submitted in cassette A1. ([id number]) /[facility] 03/13/20252057 Local . 01 Pathologist provided ICD-10: K35.80 . 01 CPT . 485292 Specimen Comment: A courtesy copy of this report has been sent to [facility] Performed at: [address] [address], [place], [place] [id number] MD Gianfranco Antunez MD Phone: [phone]
--- NOTE | 2025-03-09 09:20 | ED.ABDPAIN ---
HPI - Abdominal Pain General Chief Complaint: Abdominal Pain Stated Complaint: Sent from Dr. Arreaga Acute Appendicitis Time Seen by Provider: 03/09/25 09:00 History of Present Illness HPI narrative: 80-year-old female history of orthostatic hypotension, dysautonomia, palpitation as cancer status post surgery chemo and radiation 2001, presents with complaints of nausea dry heaving right-sided abdominal pain for the last 5 days seen by PCP yesterday advised to go the ER but she refused but was willing to negotiate for a CT scan which ended up showing appendicitis and that is why she is here today. She is not able to eat anything and has had considerable abdominal pain despite taking the acetaminophen. Other than what is stated 14 point review of system is negative. Related Data Home Medications ?Medication ?Instructions ?Recorded ?Confirmed cholecalciferol (vitamin D3) 50 50 mcg PO DAILY 11/12/21 03/08/25 mcg (2,000 unit) capsule magnesium aspart,citrate,oxide 400 mg PO DAILY 07/09/22 03/08/25 Previous Rx's ?Medication ?Instructions ?Recorded AMITR/CHUCK/KETAM TOPICAL SCALP See Rx Instructions .Route 10/04/23 1/8/0.5% SOLUTION .COMPLEX #100 mL calcitonin (salmon) 200 1 spray intranasal DAILY #3 ea 12/03/23 unit/actuation nasal spray meloxicam 15 mg tablet 15 mg PO DAILY #90 tabs 08/24/24 ondansetron 4 mg disintegrating 4 mg PO TID-QID PRN nausea and 09/08/24 tablet vomiting #60 tabs fludrocortisone 0.1 mg tablet 0.2 mg (2 x 0.1 mg) PO DAILY #60 12/01/24 tabs tramadol 50 mg tablet 50 mg PO Q8H PRN pain #20 tabs 12/01/24 lansoprazole 30 mg capsule,delayed 30 mg PO DAILY #90 caps 12/05/24 release gabapentin 100 mg capsule 200 mg (2 x 100 mg) PO BEDTIME 01/02/25 #180 caps progesterone micronized 100 mg 100 mg PO QAM #90 caps 01/02/25 capsule rosuvastatin 5 mg tablet 5 mg PO 3XW #39 tabs 01/25/25 Allergies Allergy/AdvReac Type Severity Reaction Status Date / Time levofloxacin (LEVOFLOXACIN) Allergy Severe DIZZINESS, Verified 03/09/25 09:25 WEAKNESS AND VOMITING Sulfa (Sulfonamide Allergy Severe PASSED Verified 03/09/25 09:25 Antibiotics) (SULFA OUT, (SULFONAMIDE ANTIBIOTICS)) DIZZINESS, NAUSEA ciprofloxacin (From CIPRO) Allergy Intermediate WEAKNESS, Verified 03/09/25 09:25 FAINTING, DIZZINESS nitrofurantoin (From Allergy Intermediate DIZZINESS, Verified 03/09/25 09:25 MACROBID) WEAKNESS, DIARRHEA AND VOMITING Review of Systems Review of Systems ROS Unobtainable: All systems reviewed & are unremarkable except as noted in HPI and below Patient History Medical History (Updated 03/09/25 @ 11:35 by Israel Landry, DO) Nausea & vomiting Acute abdominal pain in right lower quadrant Greater trochanteric bursitis of left hip Poor appetite Upper extremity somatic dysfunction Benign paroxysmal positional vertigo Essential tremor Plantar fasciitis, bilateral Autonomic dysfunction Hypotension Greater trochanteric bursitis of right hip Acute pain of right shoulder Frequent falls Balance problem Localized papular rash 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Supraventricular tachycardia, paroxysmal Heart palpitations Dystonia Strain of rectus abdominis muscle Abdominal tenderness Excessive cerumen in right ear canal Scalp itch Anxiety about health Mixed action and resting tremor Segmental and somatic dysfunction of rib cage Cystitis Abdominal pain Nausea Cranial somatic dysfunction Cervical stenosis of spine Lumbar facet arthropathy Chronic thoracic back pain Segmental and somatic dysfunction of abdomen and other regions Sacral region somatic dysfunction Pelvic somatic dysfunction Lumbar region somatic dysfunction Thoracic region somatic dysfunction Cervical somatic dysfunction Chronic low back pain without sciatica Neck pain Surgical History History of cataract removal with insertion of prosthetic lens Status post tubal ligation S/P total abdominal hysterectomy and bilateral salpingo-oophorectomy History of lumpectomy (01/10/02) Family History Brother Age: 81 Hyperlipidemia Mother Hyperlipidemia Ovarian cancer History of cholelithiasis Pheochromocytoma Sister Essential hypertension Hyperlipidemia Social History Smoking Status: Former smoker Tobacco: How many years used: 1 second hand exposure: No alcohol intake: former substance use type: does not use Exam Narrative Exam Narrative: GENERAL: [80] year old patient appears stated age. Well-developed patient, in mild distress. HEAD: Atraumatic. Normocephalic. EYES: Pupils equal round and reactive. Extraocular motions intact. No scleral icterus. No injection or drainage. ENT: Nose without bleeding, purulent drainage. Throat without erythema, tonsillar hypertrophy or exudate. Airway patent. NECK: Trachea midline. Non tender CARDIOVASCULAR: Regular rate and rhythm without murmurs, gallops, or rubs. RESPIRATORY: Clear to auscultation. Breath sounds equal bilaterally. No wheezes, rales, or rhonchi. GASTROINTESTINAL: Abdomen soft, RLQ TTP, nondistended. EXTREMITIES: No edema or joint tenderness. BACK: Nontender without deformity or crepitance. No flank tenderness. NEURO: AOx3. SKIN: No rash or erythema of visible areas Initial Vital Signs Initial Vital Signs: Vital Signs Temperature 97.9 F 03/09/25 09:05 Pulse Rate 77 03/09/25 09:05 Respiratory Rate 16 03/09/25 09:05 Blood Pressure 136/64 03/09/25 09:05 Pulse Oximetry 99 03/09/25 09:05 Oxygen Delivery Method Room Air 03/09/25 09:05 Course Orders Ordered: ED Orders 03/09/25 09:19 EKG-12 Lead Stat 03/09/25 09:22 Complete Blood Count AUTO DIFF Stat Comprehensive Metabolic Panel Stat Lipase Stat 03/09/25 10:00 Ammonia (NH3) Stat POTASSIUM CHLORIDE IN WATER (Potassium Cl 10 Meq/100 Ml Shanthi) 10 meq in 100 mls @ 100 mls/hr IV Q1H BRANDY Stop: 03/09/25 14:29 Last Admin: 03/09/25 11:00 Dose: 100 mls/hr Documented By: TALIA Lactated Ringer's (Lactated Ringers) 1,000 mls @ 100 mls/hr IV CONT BRANDY Piperacillin Sod/Tazobactam (Sod 4.5 gm/ Sodium Chloride) 100 mls @ 200 mls/hr IV NOW ONE Stop: 03/09/25 11:23 Ondansetron HCl (Ondansetron 4 Mg/2 Ml Inj) 4 mg IV NOW PRN PRN Reason: Nausea And Vomiting Last Admin: 03/09/25 09:53 Dose: 4 mg Documented By: TALIA Ondansetron HCl (Ondansetron 4 Mg Odt) 4 mg PO NOW PRN PRN Reason: Nausea And Vomiting Discontinued Medications Lactated Ringer's (Lactated Ringers) 1,000 mls @ 1,000 mls/hr IV BOLUS ONE Stop: 03/09/25 10:26 Last Infusion: 03/09/25 10:39 Dose: Infused Documented By: Admin: 03/09/25 09:54 Dose: 1,000 mls/hr Documented By: TALIA Piperacillin Sod/Tazobactam (Sod 4.5 gm/ Sodium Chloride) 100 mls @ 200 mls/hr IV STAT ONE Stop: 03/09/25 09:38 Last Infusion: 03/09/25 10:39 Dose: Infused Documented By: Admin: 03/09/25 09:53 Dose: 200 mls/hr Documented By: TALIA Ketorolac Tromethamine (Ketorolac 30 Mg/Ml Vial) 15 mg IV NOW ONE Stop: 03/09/25 09:28 Vital Signs Vital signs: Vital Signs - 8 hr 03/09/25 09:05 Temperature 97.9 F Pulse Rate 77 Respiratory Rate 16 Blood Pressure 136/64 Pulse Oximetry 99 Oxygen Delivery Method Room Air MDM - Abdominal Pain Lab Data 03/09/25 09:22 03/09/25 09:22 Labs: Lab Results 03/09/25 03/09/25 Range/Units 09:22 10:00 WBC 9.3 (4.5-11.0) X10^3/uL RBC 4.19 (4.0-5.2) X10^6/uL Hgb 13.5 (12.0-16.0) g/dL Hct 38.3 (36-46) % MCV 91.3 (80-100) fL MCH 32.1 (26-34) PG MCHC 35.2 (30-36) % RDW 13.5 (11.6-14.8) % Plt Count 158 (150-400) X10^3/uL Neut % (Auto) 67.7 (50-75) % Lymph % (Auto) 21.5 L (25-40) % [place] % (Auto) 9.3 (3-14) % Eos % (Auto) 0.7 L (2-4) % Baso % (Auto) 0.8 (0-2) % Neut # (Auto) 6300 (5479-9803) /uL Lymph # (Auto) 2000 (6848-3024) /uL [place] # (Auto) 900 (0-900) /uL Eos # (Auto) 100 (0-450) /uL Baso # (Auto) 100 (0-100) /uL Sodium 136 L (137-145) mmol/L Potassium 3.2 L (3.4-5.1) mmol/L Chloride 105 (98-107) mmol/L Carbon Dioxide 22 (22-32) mmol/L BUN 12 (7-17) mg/dL Creatinine 0.80 (0.52-1.04) mg/dL Estimated GFR > 60 (>60) mL/min BUN/Creatinine Ratio 15.0 (6-22) Glucose 97 (70-99) mg/dL Calcium 9.2 (8.4-10.2) mg/dL Total Bilirubin 1.1 (0.2-1.3) mg/dL AST 22 (14-36) IU/L ALT 16 (<35) IU/L Alkaline Phosphatase 32 L (38-126) U/L Ammonia < 9 L (9-30) umol/L Total Protein 7.2 (6.3-8.2) g/dL Albumin 4.3 (3.5-5.0) g/dL Globulin 2.9 (1.7-4.1) g/dL Albumin/Globulin Ratio 1.5 (1.0-2.8) Lipase 106 (23-300) U/L Imaging Data CT scan - abdomen/pelvis: Radiologist's Impression: [place] [address] CT Scan Report Signed Patient: Calli Marti MR#: [id number] : 1945 Acct:[id number] Age/Sex: 80 / F Date of Service: 03/08/25 Loc: CT Accession Number: [id number] Procedure: CT abdomen pelvis w con Ordering Provider: Enrique Arreaga D.O. PROCEDURE: CT ABDOMEN PELVIS W CON INDICATIONS: acute abdominal pain, nausea TECHNIQUE: After the administration of intravenous contrast, axial sections acquired from the lung bases to the pubic symphysis. Coronal and sagittal reformats were performed. For radiation dose reduction, the following was used: automated exposure control, adjustment of mA and/or kV according to patient size. COMPARISON: Outside Facility, RG, CT ABDOMEN/PELVIS W/WO CONTRAST, 08/31/2016, 11:47. FINDINGS: Image quality: Diagnostic Lower chest: Unremarkable lung bases Normal heart size. Trace pericardial effusion Liver: Unremarkable Gallbladder and biliary system: Unremarkable, nondilated Pancreas: No ductal dilation Spleen: Nonenlarged Adrenals: No discrete nodules Kidneys: No solid renal mass. No hydronephrosis. Vessels and lymph nodes: The main portal vein appears patent. Mild aortic calcifications. No lymph nodes enlarged by size criteria. Prominent left gonadal vein is seen. Bowel and peritoneum: No evidence of small bowel obstruction. There is nonspecific wall thickening of the distal stomach. No drainable abscess or ascites. There is a moderate rectal stool ball. Colonic diverticula. Dilated inflamed appendix, with small stones at the neck. The appendiceal tip measures up to 1 centimeter in diameter. This is located just below the liver. Body wall: Unremarkable Pelvis: Under distended bladder. Uterus is absent Bones: There are degenerative osseous changes. No aggressive appearing osseous abnormality. Suspect small bone islands are again seen IMPRESSION: Acute appendicitis. Small stones are seen at the appendiceal neck. Colonic diverticula also present, without acute diverticular inflammation. Mild gastric wall thickening possibly gastritis versus artifact of under distention. No drainable abscess or ascites. Other findings above. ECG Data Interpretation: NSR HR 78 HI 140 QRS [address]-t wave change No previous EKG to compare against MDM Narrative Medical decision making narrative: All lab work, vital signs, nurse triage note, medication list, previous ER visits, and all imaging studies reviewed. Normal white blood count. Sodium 136 potassium 3.2 T bili AST ALT all normal alk-phos 32 lipase normal at 106 CT scan from yesterday showed acute appendicitis with small stone seen at the appendiceal neck. Colonic diverticula but no acute diverticular inflammation and mild gastric wall thickening possibly gastritis versus artifact or underdistention. No drainable abscess or ascites. Patient given fluids, Zosyn, Toradol. Dr. Conrad be we will be taking the patient to surgery Discharge Plan Departure Patient Disposition: Admitted as Observation Clinical Impression: Acute appendicitis Qualifiers: Acute appendicitis type: with localized peritonitis Appendicitis gangrene presence: without gangrene Appendicitis perforation presence: without perforation Appendicitis abscess presence: without abscess Qualified Code(s): K35.30 - Acute appendicitis with localized peritonitis, without perforation or gangrene
[2025-03-09 09:28] LABS: Add Manual Diff / Slide Review NO; Hematocrit 38.3 % (36-46); Hemoglobin 13.5 g/dL (12.0-16.0); Lymphocytes Absolute Auto 2000 /uL (1100-4500); Mean Corpuscular HGB Conc 35.2 % (30-36); Mean Corpuscular Hemoglobin 32.1 PG (26-34); Mean Corpuscular Volume 91.3 fL (80-100); Platelet Count 158 X10^3/uL (150-400)
--- NOTE | 2025-03-09 09:32 | EKG_ITS ---
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
[2025-03-09 09:39] LABS: Alanine Aminotransferase 16 IU/L (<35); Albumin 4.3 g/dL (3.5-5.0); Albumin Globulin Ratio 1.5 (1.0-2.8); Alkaline Phosphatase 32 U/L (38-126); Blood Urea Nitrogen 12 mg/dL (7-17); Calcium 9.2 mg/dL (8.4-10.2); Carbon Dioxide 22 mmol/L (22-32); Chloride 105 mmol/L (98-107); Estimated Glomerular Filt Rate > 60 mL/min (>60); Globulin 2.9 g/dL (1.7-4.1); Glucose 97 mg/dL (70-99); HEMOLYSIS < 15 (0-50); Lipase 106 U/L (23-300); Potassium 3.2 mmol/L (3.4-5.1); Sodium 136 mmol/L (137-145); Total Protein 7.2 g/dL (6.3-8.2)
[2025-03-09] MEDS: PIPERACILLIN/TAZO 4.5 GM in SODIUM CHLORIDE 0.9% 100 ML IV (09:53)
[2025-03-09] MEDS: ONDANSETRON 4 MG/2 ML INJ IV (09:53)
[2025-03-09] MEDS: LACTATED RINGERS 1,000 ML 1000 ML IV (09:54)
[2025-03-09 10:15] LABS: Ammonia (NH3) < 9 umol/L (9-30)
[2025-03-09] MEDS: POTASSIUM CHLORIDE IN WATER 10 MEQ/100 ML PIGGYBACK 100 MEQ IV ×4 (11:00→17:01)
--- NOTE | 2025-03-09 11:42 | PM.HP.IH.1 ---
History of Present Illness History of Present Illness Date Patient Seen: 03/09/25 Time Patient Seen: 11:30 Date of Onset of Symptoms: 03/04/25 Chief complaint: Sent from Dr. Arreaga Acute Appendicitis Narrative: Patient is a 80-year-old white female presents to the emergency room with nausea vomiting without any hematemesis. Six stomach for 6 days with right lower quadrant pain of 4 days' duration. The patient went and saw her family physician on 03/08/[address] scan which showed acute appendicitis she was told to go the emergency room she felt it was not needed. Patient shows up in the emergency room today with worsening abdominal pain hurts to cough laugh move car ride was painful. CT scan was reviewed which shows an inflamed non perforated or abscessed appendix. Patient last ate 03/08/2025 approximately 5:00 p.m.. Patient ER laboratory shows WBC of 9.3 hemoglobin is 13.5 hematocrit is 38.3 platelets a 158,000 sodium is 136 potassium 3.2 chloride 105 bicarb is 22 BUN of 12 creatinine 0.8 random blood sugar is 97 normal LFTs alkaline phosphatase is 32 lipase is 106. Allergies: Levaquin, sulfa, Cipro, Macrobid Medications: Cholecalciferol, calcitonin, oral cortisone, gabapentin, lansoprazole, magnesium, meloxicam, Zofran, prednisone, rosuvastatin, tramadol Past medical history: Anxiety, depression, dentures, 0 para 0 ab 0, history of dysautonomia, history of SVT, history of left breast cancer in 2001 treated with OR chemo and radiation therapy, degenerative joint disease with trochanteric bursitis, diverticulosis, history of colon polyps. Patient denies any other heart lungs digestive musculoskeletal neurological seizure disorder psychiatric problems risks are infectious diseases HIV or AIDS. 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 1966, denies any alcohol in years, denies any recreational drug usage. Vitals: Temperature is 97.9? pulse is 77 respirations 16 BP is 136/64 SaO2 is 99% on room air. Patient is 5 ft 5 in 120 lb. Head is normocephalic eyes PERRLA EOMI is intact nares are clear septum midline EACs and pinnae unremarkable oropharyngeal cavity dentures are in place heart regular rate and rhythm without murmurs. Lungs clear to auscultation poor inspiratory and expiratory effort poor chest wall motion noted. Abdomen is soft with hypoactive bowel sounds negative Luis's Honeycutt great Bowman's Galo's positive McBurney's positive rebound positive guarding. Musculoskeletal moderate muscle tone and strength equal bilaterally no gross deficits elicited. Impression: Acute right lower quadrant pain of 4 days' duration with CT scan showing acute appendicitis patient having rebound and guarding Dysautonomia History of SVT History of left breast cancer treated with surgery radiation and chemo in 2001 Hypertension Plan: Discussed with patient and family in room the findings need for laparoscopic appendectomy possible open procedure risks and complications were fully explained including risk for cardiopulmonary depression infection bleeding bowel injury possible conversion to open procedure. All questions were answered to their satisfaction we will proceed to OR this date. We will admit patient and postoperatively. We will consult hospitalist for medical management. [facility] Medical History (Updated 03/09/25 @ 11:35 by Israel Landry, ) Nausea & vomiting Acute abdominal pain in right lower quadrant Greater trochanteric bursitis of left hip Poor appetite Upper extremity somatic dysfunction Benign paroxysmal positional vertigo Essential tremor Plantar fasciitis, bilateral Autonomic dysfunction Hypotension Greater trochanteric bursitis of right hip Acute pain of right shoulder Frequent falls Balance problem Localized papular rash 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Supraventricular tachycardia, paroxysmal Heart palpitations Dystonia Strain of rectus abdominis muscle Abdominal tenderness Excessive cerumen in right ear canal Scalp itch Anxiety about health Mixed action and resting tremor Segmental and somatic dysfunction of rib cage Cystitis Abdominal pain Nausea Cranial somatic dysfunction Cervical stenosis of spine Lumbar facet arthropathy Chronic thoracic back pain Segmental and somatic dysfunction of abdomen and other regions Sacral region somatic dysfunction Pelvic somatic dysfunction Lumbar region somatic dysfunction Thoracic region somatic dysfunction Cervical somatic dysfunction Chronic low back pain without sciatica Neck pain Surgical History History of cataract removal with insertion of prosthetic lens Status post tubal ligation S/P total abdominal hysterectomy and bilateral salpingo-oophorectomy History of lumpectomy (01/10/02) Family History Brother Age: 81 Hyperlipidemia Mother Hyperlipidemia Ovarian cancer History of cholelithiasis Pheochromocytoma Sister Essential hypertension Hyperlipidemia Social History Smoking Status: Former smoker Tobacco: How many years used: 1 second hand exposure: No alcohol intake: former substance use type: does not use Meds Home Medications and Allergies Home Medications ?Medication ?Instructions ?Recorded ?Confirmed ?Type cholecalciferol (vitamin D3) 50 50 mcg PO DAILY 11/12/21 03/08/25 History mcg (2,000 unit) capsule magnesium aspart,citrate,oxide 400 mg PO DAILY 07/09/22 03/08/25 History AMITR/CHUCK/KETAM TOPICAL SCALP See Rx Instructions .Route 10/04/23 03/08/25 Rx 1/8/0.5% SOLUTION .COMPLEX #100 mL calcitonin (salmon) 200 1 spray intranasal DAILY #3 ea 12/03/23 03/08/25 Rx unit/actuation nasal spray meloxicam 15 mg tablet 15 mg PO DAILY #90 tabs 08/24/24 03/08/25 Rx ondansetron 4 mg disintegrating 4 mg PO TID-QID PRN nausea and 09/08/24 03/08/25 Rx tablet vomiting #60 tabs fludrocortisone 0.1 mg tablet 0.2 mg (2 x 0.1 mg) PO DAILY #60 12/01/24 03/08/25 Rx tabs tramadol 50 mg tablet 50 mg PO Q8H PRN pain #20 tabs 12/01/24 03/08/25 Rx lansoprazole 30 mg capsule,delayed 30 mg PO DAILY #90 caps 12/05/24 03/08/25 Rx release gabapentin 100 mg capsule 200 mg (2 x 100 mg) PO BEDTIME 01/02/25 03/08/25 Rx #180 caps progesterone micronized 100 mg 100 mg PO QAM #90 caps 01/02/25 03/08/25 Rx capsule rosuvastatin 5 mg tablet 5 mg PO 3XW #39 tabs 01/25/25 03/08/25 Rx Allergies Allergy/AdvReac Type Severity Reaction Status Date / Time levofloxacin (LEVOFLOXACIN) Allergy Severe DIZZINESS, Verified 03/09/25 09:25 WEAKNESS AND VOMITING Sulfa (Sulfonamide Allergy Severe PASSED Verified 03/09/25 09:25 Antibiotics) (SULFA OUT, (SULFONAMIDE ANTIBIOTICS)) DIZZINESS, NAUSEA ciprofloxacin (From CIPRO) Allergy Intermediate WEAKNESS, Verified 03/09/25 09:25 FAINTING, DIZZINESS nitrofurantoin (From Allergy Intermediate DIZZINESS, Verified 03/09/25 09:25 MACROBID) WEAKNESS, DIARRHEA AND VOMITING Exam Vital Signs (past 8 hours): - 03/09/25 09:05 Temperature 97.9 F Pulse Rate 77 Respiratory Rate 16 Blood Pressure 136/64 Pulse Oximetry 99 Oxygen Delivery Method Room Air Oxygen Delivery Method Room Air Objective Labs 03/09/25 09:22 03/09/25 09:22 Labs: Laboratory Results - last 24 hr 03/09/25 03/09/25 09:22 10:00 WBC 9.3 RBC 4.19 Hgb 13.5 Hct 38.3 MCV 91.3 MCH 32.1 MCHC 35.2 RDW 13.5 Plt Count 158 Neut % (Auto) 67.7 Lymph % (Auto) 21.5 L [place] % (Auto) 9.3 Eos % (Auto) 0.7 L Baso % (Auto) 0.8 Neut # (Auto) 6300 Lymph # (Auto) 2000 [place] # (Auto) 900 Eos # (Auto) 100 Baso # (Auto) 100 Sodium 136 L Potassium 3.2 L Chloride 105 Carbon Dioxide 22 BUN 12 Creatinine 0.80 Estimated GFR > 60 BUN/Creatinine Ratio 15.0 Glucose 97 Calcium 9.2 Total Bilirubin 1.1 AST 22 ALT 16 Alkaline Phosphatase 32 L Ammonia < 9 L Total Protein 7.2 Albumin 4.3 Globulin 2.9 Albumin/Globulin Ratio 1.5 Lipase 106 Assessment & Plan Time-Based Coding :: [TOTAL MINUTES] spent with patient and on the chart (including review of chart, obtaining history, exam, reviewing outside data, placing orders, documenting exam and treatment plan, and counseling patient) on [DATE]. [employer] Document charge(s): Yes
[2025-03-09] MEDS: ACETAMINOPHEN IV 1,000 MG/100 ML VIAL 400 MG IV (13:28)
--- NOTE | 2025-03-09 13:59 | SUR.OPER ---
Supine on padded OR bed, head on pillow, right arm secured on padded arm boards at <90 degrees abduction, left arm padded and tucked, legs uncrossed, safety belt at thigh, tape over blanket over lower legs. Surgeon in room during positioning and approved final position, all pressure points padded and covered.
--- NOTE | 2025-03-09 14:10 | PM.CN.IH.1 ---
History of Present Illness Consult details Date Patient Seen: 03/09/25 Chief complaint: Sent from Dr. Arreaga Acute Appendicitis Meds Home Medications and Allergies Home Medications ?Medication ?Instructions ?Recorded ?Confirmed ?Type cholecalciferol (vitamin D3) 50 50 mcg PO DAILY 11/12/21 03/09/25 History mcg (2,000 unit) capsule magnesium aspart,citrate,oxide 400 mg PO DAILY 07/09/22 03/09/25 History AMITR/CHUCK/KETAM TOPICAL SCALP See Rx Instructions .Route 10/04/23 03/08/25 Rx 1/8/0.5% SOLUTION .COMPLEX #100 mL calcitonin (salmon) 200 1 spray intranasal DAILY #3 ea 12/03/23 03/08/25 Rx unit/actuation nasal spray meloxicam 15 mg tablet 15 mg PO DAILY #90 tabs 08/24/24 03/08/25 Rx ondansetron 4 mg disintegrating 4 mg PO TID-QID PRN nausea and 09/08/24 03/09/25 Rx tablet vomiting #60 tabs fludrocortisone 0.1 mg tablet 0.2 mg (2 x 0.1 mg) PO DAILY #60 12/01/24 03/09/25 Rx tabs tramadol 50 mg tablet 50 mg PO Q8H PRN pain #20 tabs 12/01/24 03/09/25 Rx lansoprazole 30 mg capsule,delayed 30 mg PO DAILY #90 caps 12/05/24 03/09/25 Rx release gabapentin 100 mg capsule 200 mg (2 x 100 mg) PO BEDTIME 01/02/25 03/09/25 Rx #180 caps progesterone micronized 100 mg 100 mg PO QAM #90 caps 01/02/25 03/09/25 Rx capsule rosuvastatin 5 mg tablet 5 mg PO 3XW #39 tabs 01/25/25 03/09/25 Rx Allergies Allergy/AdvReac Type Severity Reaction Status Date / Time levofloxacin (LEVOFLOXACIN) Allergy Severe DIZZINESS, Verified 03/09/25 09:25 WEAKNESS AND VOMITING Sulfa (Sulfonamide Allergy Severe PASSED Verified 03/09/25 09:25 Antibiotics) (SULFA OUT, (SULFONAMIDE ANTIBIOTICS)) DIZZINESS, NAUSEA ciprofloxacin (From CIPRO) Allergy Intermediate WEAKNESS, Verified 03/09/25 09:25 FAINTING, DIZZINESS nitrofurantoin (From Allergy Intermediate DIZZINESS, Verified 03/09/25 09:25 MACROBID) WEAKNESS, DIARRHEA AND VOMITING Review of Systems Review of Systems ROS: Yes All systems reviewed with the patient and are negative except as otherwise documented Exam Vital Signs (past 8 hours): - 03/09/25 09:05 03/09/25 12:45 Temperature 97.9 F 98.3 F Pulse Rate 77 73 Respiratory Rate 16 16 Blood Pressure 136/64 151/81 H Pulse Oximetry 99 97 Oxygen Delivery Method Room Air Room Air Oxygen Delivery Method Room Air Objective ECG Impression: EKG 03/09/2025: Normal sinus rhythm at 78 beats per minute, nonspecific ST-T abnormality, no acute ischemic changes Imaging Abdomen/ pelvis CT 03/08/2025:: Radiologist's impression: Acute appendicitis. Small stones are seen at the appendiceal neck. Colonic diverticula also present, without acute diverticular inflammation. Mild gastric wall thickening possibly gastritis versus artifact of under distention. No drainable abscess or ascites. Other findings above. Labs 03/09/25 09:22 03/09/25 09:22 Labs: Laboratory Results - last 24 hr 03/09/25 03/09/25 09:22 10:00 WBC 9.3 RBC 4.19 Hgb 13.5 Hct 38.3 MCV 91.3 MCH 32.1 MCHC 35.2 RDW 13.5 Plt Count 158 Neut % (Auto) 67.7 Lymph % (Auto) 21.5 L [place] % (Auto) 9.3 Eos % (Auto) 0.7 L Baso % (Auto) 0.8 Neut # (Auto) 6300 Lymph # (Auto) 2000 [place] # (Auto) 900 Eos # (Auto) 100 Baso # (Auto) 100 Sodium 136 L Potassium 3.2 L Chloride 105 Carbon Dioxide 22 BUN 12 Creatinine 0.80 Estimated GFR > 60 BUN/Creatinine Ratio 15.0 Glucose 97 Calcium 9.2 Total Bilirubin 1.1 AST 22 ALT 16 Alkaline Phosphatase 32 L Ammonia < 9 L Total Protein 7.2 Albumin 4.3 Globulin 2.9 Albumin/Globulin Ratio 1.5 Lipase 106 [facility] Medical History Abdominal pain Abdominal tenderness Acute abdominal pain in right lower quadrant Acute pain of right shoulder Anxiety about health Autonomic dysfunction Balance problem Benign paroxysmal positional vertigo Cervical somatic dysfunction Cervical stenosis of spine Chronic low back pain without sciatica Chronic thoracic back pain Cranial somatic dysfunction Cystitis 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[place] Essential tremor Excessive cerumen in right ear canal Frequent falls Greater trochanteric bursitis of left hip Greater trochanteric bursitis of right hip Heart palpitations Hypotension Localized papular rash Lumbar facet arthropathy Lumbar region somatic dysfunction Mixed action and resting tremor Nausea Nausea & vomiting Neck pain Pelvic somatic dysfunction Plantar fasciitis, bilateral Poor appetite Sacral region somatic dysfunction Scalp itch Segmental and somatic dysfunction of abdomen and other regions Segmental and somatic dysfunction of rib cage Strain of rectus abdominis muscle Supraventricular tachycardia, paroxysmal Thoracic region somatic dysfunction Upper extremity somatic dysfunction Surgical History History of cataract removal with insertion of prosthetic lens History of lumpectomy (01/10/02) S/P total abdominal hysterectomy and bilateral salpingo-oophorectomy Status post tubal ligation Family History Brother Age: 81 Hyperlipidemia Mother Hyperlipidemia Ovarian cancer History of cholelithiasis Pheochromocytoma Sister Essential hypertension Hyperlipidemia Tobacco & Substance Use Smoking Status: Never smoker Tobacco: How many years used: 1 second hand exposure: No alcohol intake: former substance use type: does not use Assessment & Plan Time-Based Coding :: [TOTAL MINUTES] spent with patient and on the chart (including review of chart, obtaining history, exam, reviewing outside data, placing orders, documenting exam and treatment plan, and counseling patient) on [DATE].
[2025-03-09] MEDS: BUPivacaine 0.25% W/ EPI (PF) 30 ML VIAL INJ (14:12)
[2025-03-09] MEDS: LACTATED RINGERS 1,000 ML 42 ML IV (14:47)
[2025-03-09 15:31] LABS: Creatine Kinase 41 U/L (30-135)
--- NOTE | 2025-03-09 15:31 | P.OP_ITS ---
Operative Date/Time/Diagnoses Date of procedure: 03/09/25 Time of procedure: 15:30 Pre-op diagnosis: Right lower quadrant pain of [address] days' duration with CT scan showing acute appendicitis Post-op diagnosis: same (Retrocecal with tip of the appendix touching the gallbladder and liver) Procedure & Clinicians Procedure: Laparoscopic appendectomy Same procedure(s) as scheduled: Yes Surgeon: Enrique Conrad Click Yes if Unassisted: Yes Anesthesia Type: General Operative Notes Findings: Patient is a 80-year-old white female who was seen in the emergency room with abdominal pain of 4 days' duration not feeling well for 5 days. Patient's saw her family practice doctor on 03/08/[address] scan which showed acute appendicitis. Patient has contacted by her family practitioner to go the emergency room the patient refused. The patient went to the emergency room on 03/09/2025 early a.m.. No new labs or CT scan was performed and was asked to see the patient for surgical evaluation. The patient was noted to have positive McBurney's rebound and guarding old CT scan was reviewed which showed the acute appendicitis. Procedure risks and complications were fully explained to patient and family they understood including risk for cardiopulmonary depression infection bleeding bowel injury and conversion to the open procedure. Patient had been NPO since the previous night. Was brought to surgery suite after given a bolus of potassium for potassium of 3.2. The patient was administered a general inhalation endotracheal anesthetic. SCDs were placed Urrutia catheter placed bedside drainage IV antibiotics were given the patient was prepped and draped in usual sterile fashion with Hibiclens and a time-out was performed procedure patient and surgeon all in the room were in agreement. 3 minute weight was done to avoid any fire risk further prep. Patient had a infraumbilical incision made with a 15. Knife blade elevated with a towel clip. Veress needle syringe and sterile saline was advanced in the peritoneal cavity f luid was injected no fluid was returned and drop test show free flow in the peritoneal cavity. This placed continuous flow CO2 with an upper limits of 14 mmHg pressure after adequate insufflation loss of liver dullness 14 mm of mercury pressure the Veress needle was then removed a 5 mm nonbladed port was placed trocar was removed and this placed continuous flow CO2. The patient then had the scope camera and light source were introduced patient was noted to have a considerable amount of inflammation in the right lower quadrant with omentum scarred into a previous surgical site. The cecum appeared to be rotated slightly with the ileocecal valve coming from inferior. The patient then had a suprapubic port placed 5 mm under direct visualization and a 12 mm placed in the right upper quadrant. Patient was placed in Trendelenburg and slight left lateral roll the omental adhesions were taken down in the pelvis exposing the ileum going into the cecum inferiorly the patient's appendix was not directly visualized the tenia was followed and it appeared that the appendix was retrocecal. The lateral attachments were taken down with electrocautery rotating the appendix medial the appendix was buried in the sidewall of the colon and the tip was traced up and was touching the gallbladder and the inferior surface of the liver. The tip of the gall bladder was noted and great care was taken to avoid any injury the gallbladder or the liver. The appendix was freed slightly in an endoloop of 0 Vicryl was placed around the tip of the appendix help facilitate manipulation. The appendix was then dissected down in a retrograde fashion down to the cecum it was extremely inflamed and adherent window was made in the avascular portion of the mesoappendix this was checked anterior-posterior the cecum was free the patient then had a Endo-HENNY with a bowel load was placed across the base of the appendix at the cecum this was checked anterior-posterior prior to clamping anterior-posterior prior to firing. Patient then had the appendix was then grasped and elevated and further freed up from the lateral wall of the cecum. A vascular Endo-HENNY was placed in starting from the retrograde position the mesoappendix was then clamped checked anterior-posterior prior to clamping anterior-posterior prior to firing a 2nd vascular load was placed completing the removal of the appendix no signs of injury to the colon was noted lateral wall was clear as was the cecum the patient then had an Endo-Catch bag was placed through the 12 mm port site appendix was placed in this and easily extracted. The patient then had a endo close of 0 Vicryl was placed under direct visualization but not tying the 12 mm port site this was hemostatic port was placed patient then had abdominal cavity was copiously irrigated out with sterile normal saline and suctioned dry no active bleeding was noted. The patient then had a flat 5 mm MARCELLE drain was placed through the right upper quadrant port site and delivered through the suprapubic port site this was placed in the right lateral gutter where the surgery had been performed in the appendix was laying. This was then clamped avoid any air leak the patient then had the surgical field was checked no signs of bleeding no findings were noted the bowel was all intact. Patient then had all instrumentation was removed all insufflated air was vented out prior to the decompression all port sites were then injected with Marcaine 0.25% with epi under direct visualization. The patient then had the 12 mm port was removed the finger was then reduced through the fascial defect no abdominal contents were noted protruding through and the endo close 0 Vicryl was tied. All wounds were irrigated out with sterile saline closed in layers with interrupted inverted 0 Vicryl. The skin was reapproximated with interrupted inverted 4-0 Vicryl. Wounds were cleansed with sterile saline blotted dry and covered with half-inch Steri-Strips bulky bandages and taped in place. First and 2nd sponge instrument and needle counts found to be correct patient tolerated procedure well without incident or complication the patient was returned to recovery room in satisfactory condition postoperatively we will admit to inpatient we will follow patient closely advance diet as tolerated DCI antibiotics once white count is normal. We will follow patient closely. All questions were answered to patient's satisfaction. Closure Type: primary Specimen(s): other (Gangrenous appendix) Applied: drain(s) Estimated Blood Loss (mL): 10 Blood products transfused: none Complications: none Post-operative Condition: stable Disposition: PACU
--- NOTE | 2025-03-09 15:43 | EKG_ITS ---
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
[2025-03-09 15:44] LABS: Troponin I < 0.012 ng/mL (0.01-0.034)
[2025-03-09 16:09] LABS: HEMOLYSIS < 15 (0-50); Potassium 3.7 mmol/L (3.4-5.1)
--- NOTE | 2025-03-09 16:24 | P.CONS_ITS ---
History of Present Illness Consult details Date Patient Seen: 03/09/25 Chief complaint: Sent from Dr. Arreaga Acute Appendicitis Narrative: Chief complaint: Appendicitis History of present illness: 80-year-old female taking to the operating room emergently for acute appendicitis underwent appendectomy by general surgery. Internal medicine was asked to consult on this patient. Postoperatively in the PACU patient was alert and conversant the only complaint was left arm pain but only while the potassium was infusing in that IV in the left arm. There was concern about possibility of cardiac instability however EKG was normal sinus rhythm with chronic T-wave inversions in V1 and V2 no acute ST segment changes no arrhythmias and troponin was below detectable. Review of the vital signs during the surgery by anesthesia showed stable autonomic function Past medical history: Benign paroxysmal positional vertigo Essential tremor Plantar fasciitis, bilateral Autonomic dysfunction with Hypotension Greater trochanteric bursitis of right hip Heart palpitations with negative workup on by Cardiology for dysrhythmia Dystonia Physical exam: Elderly female alert conversant pleasant HEENT unremarkable Neck no JVD no carotid bruit Heart rate and rhythm regular Lungs clear from apices to bases Abdomen nondistended diffusely tender bowel sounds not present at the time of my examination (recent surgery literally minutes ago) No cyanosis edema of extremities Moves all extremities Neuro nonfocal Assessment and plan: Postop for gangrenous cholecystitis with somewhat complicated location of the appendix * Management per surgery stewardship * Antibiotics per surgery History of autonomic dysfunction: * No signs of instability today Mild hypokalemia potassium 3.4 * Repleted 3.7 we will complete repletion to 4.0 DVT prophylaxis: * Defer to surgery stewardship Code status: * Full code blue Disposition: * Inpatient management difficult to predict the length of hospitalization expect at least 2-5 days * Post hospitalization rehabilitation needs to be determined in that time. 55 minutes were involved in the evaluation of this consultation which included [id number]-task evaluation of the patient direct physical examination of the patient review of objective laboratory and imaging findings consultation with anesthesiologist and general surgeon and discussion with nursing treatment team Meds Home Medications and Allergies Home Medications ?Medication ?Instructions ?Recorded ?Confirmed ?Type cholecalciferol (vitamin D3) 50 50 mcg PO DAILY 03/09/25 History mcg (2,000 unit) capsule magnesium aspart,citrate,oxide 400 mg PO DAILY 3 03/09/25 History AMITR/CHUCK/KETAM TOPICAL SCALP See Rx Instructions .Ro huslia 10/04/23 03/08/25 Rx 1/8/0.5% SOLUTION .COMPLEX #100 mL calcitonin (salmon) 200 1 spray intranasal DAILY #3 ea 12/03/23 03/08/25 Rx unit/actuation nasal spray meloxicam 15 mg tablet 15 mg PO DAILY #90 tabs /2 03/08/25 Rx ondansetron 4 mg disintegrating 4 mg PO TID-QID PRN na usea and 09/08/24 03/09/25 Rx tablet vomiting #60 tabs fludrocortisone 0.1 mg tablet 0.2 mg (2 x 0.1 mg) PO D AILY #60 12/01/24 03/09/25 Rx tabs tramadol 50 mg tablet 50 mg PO Q8H PRN pain #20 ta bs 12/01/24 03/09/25 Rx lansoprazole 30 mg capsule,delayed 30 mg PO DAILY #90 caps 12/05/24 03/09/25 Rx release gabapentin 100 mg capsule 200 mg (2 x 100 mg) PO BEDTI ME 01/02/25 03/09/25 Rx #180 caps progesterone micronized 100 mg 100 mg PO QAM #90 caps 01/02/25 03/09/25 Rx capsule rosuvastatin 5 mg tablet 5 mg PO 3XW #39 tabs 5 03/09/25 Rx Allergies Allergy/AdvReac Type Severity Reaction Status Date / Time levofloxacin (LEVOFLOXACIN) Allergy Severe DIZZINESS, Verified 03/09/25 09:25 WEAKNESS AND VOMITING Sulfa (Sulfonamide Allergy Severe PASSED Verified 03/09/25 09:25 Antibiotics) (SULFA OUT, (SULFONAMIDE ANTIBIOTICS)) DIZZINESS, NAUSEA ciprofloxacin (From CIPRO) Allergy Intermediate WEAKNESS, Verified 03/09/25 09:25 FAINTING, DIZZINESS nitrofurantoin (From Allergy Intermediate DIZZINESS, Verified 03/09/25 09:25 MACROBID) WEAKNESS, DIARRHEA AND VOMITING Exam Vital Signs (past 8 hours): - 03/09/25 09:05 03/09/25 12:45 03/09/25 15:27 Temperature 97.9 F 98.3 F 97.7 F Pulse Rate 77 73 84 Respiratory Rate 16 16 12 Blood Pressure 136/64 151/81 H 135/71 Pulse Oximetry 99 97 96 Oxygen Delivery Method Room Air Room Air Room Air Oxygen Flow Rate 03/09/25 15:30 03/09/25 15:35 03/09/25 15:40 Temperature Pulse Rate 80 82 79 Respiratory Rate 13 12 16 Blood Pressure 146/77 H 127/59 L 185/101 H Pulse Oximetry 96 96 95 Oxygen Delivery Method Oxygen Flow Rate 03/09/25 16:00 03/09/25 16:05 03/09/25 16:10 Temperature 97.5 F L Pulse Rate 82 80 80 Respiratory Rate 17 16 16 Blood Pressure 157/58 H 147/55 H 148/67 H Pulse Oximetry 96 98 98 Oxygen Delivery Method Room Air Nasal Cannula Oxygen Flow Rate 2 03/09/25 16:15 Temperature Pulse Rate 77 Respiratory Rate 10 L Blood Pressure 150/67 H Pulse Oximetry 99 Oxygen Delivery Method Oxygen Flow Rate Oxygen Delivery Method Nasal Cannula Oxygen Flow Rate 2 Objective Labs 03/09/25 09:22 03/09/25 15:50 Labs: Laboratory Results - last 24 hr 03/09/25 03/09/25 03/09/25 09:22 10:00 15:02 WBC 9.3 RBC 4.19 Hgb 13.5 Hct 38.3 MCV 91.3 MCH 32.1 MCHC 35.2 RDW 13.5 Plt Count 158 Neut % (Auto) 67.7 Lymph % (Auto) 21.5 L [place] % (Auto) 9.3 Eos % (Auto) 0.7 L Baso % (Auto) 0.8 Neut # (Auto) 6300 Lymph # (Auto) 2000 [place] # (Auto) 900 Eos # (Auto) 100 Baso # (Auto) 100 Sodium 136 L Potassium 3.2 L Chloride 105 Carbon Dioxide 22 BUN 12 Creatinine 0.80 Estimated GFR > 60 BUN/Creatinine Ratio 15.0 Glucose 97 Calcium 9.2 Total Bilirubin 1.1 AST 22 ALT 16 Alkaline Phosphatase 32 L Ammonia < 9 L Total Creatine Kinase 41 Troponin I < 0.012 Total Protein 7.2 Albumin 4.3 Globulin 2.9 Albumin/Globulin Ratio 1.5 Lipase 106 03/09/25 15:50 WBC RBC Hgb Hct MCV MCH MCHC RDW Plt Count Neut % (Auto) Lymph % (Auto) [place] % (Auto) Eos % (Auto) Baso % (Auto) Neut # (Auto) Lymph # (Auto) [place] # (Auto) Eos # (Auto) Baso # (Auto) Sodium Potassium 3.7 Chloride Carbon Dioxide BUN Creatinine Estimated GFR BUN/Creatinine Ratio Glucose Calcium Total Bilirubin AST ALT Alkaline Phosphatase Ammonia Total Creatine Kinase Troponin I Total Protein Albumin Globulin Albumin/Globulin Ratio Lipase PFSH Medical History Abdominal pain Abdominal tenderness Acute abdominal pain in right lower quadrant Acute pain of right shoulder Anxiety about health Autonomic dysfunction Balance problem Benign paroxysmal positional vertigo Cervical somatic dysfunction Cervical stenosis of spine Chronic low back pain without sciatica Chronic thoracic back pain Cranial somatic dysfunction Cystitis 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[place] Essential tremor Excessive cerumen in right ear canal Frequent falls Greater trochanteric bursitis of left hip Greater trochanteric bursitis of right hip Heart palpitations Hypotension Localized papular rash Lumbar facet arthropathy Lumbar region somatic dysfunction Mixed action and resting tremor Nausea Nausea & vomiting Neck pain Pelvic somatic dysfunction Plantar fasciitis, bilateral Poor appetite Sacral region somatic dysfunction Scalp itch Segmental and somatic dysfunction of abdomen and other regions Segmental and somatic dysfunction of rib cage Strain of rectus abdominis muscle Supraventricular tachycardia, paroxysmal Thoracic region somatic dysfunction Upper extremity somatic dysfunction Surgical History History of cataract removal with insertion of prosthetic lens History of lumpectomy (01/10/02) S/P total abdominal hysterectomy and bilateral salpingo-oophorectomy Status post tubal ligation Family History Brother Age: 81 Hyperlipidemia Mother Hyperlipidemia Ovarian cancer History of cholelithiasis Pheochromocytoma Sister Essential hypertension Hyperlipidemia Tobacco & Substance Use Smoking Status: Never smoker Tobacco: How many years used: 1 second hand exposure: No alcohol intake: former substance use type: does not use Assessment & Plan Time-Based Coding :: [TOTAL MINUTES] spent with patient and on the chart (including review of chart, obtaining history, exam, reviewing outside data, placing orders, documenting exam and treatment plan, and counseling patient) on [DATE].
[2025-03-09] MEDS: LACTATED RINGERS 1,000 ML 100 ML IV (17:01)
--- NOTE | 2025-03-09 17:15 | SUR.OPER ---
Notified Dr. Conrad of patient's preference on not having catheter, patient voided prior to wheeling back to OR, Dr. Conrad ordered to place catheter for duration of procedure and to remove at end of procedure.
[2025-03-09] MEDS: ACETAMINOPHEN 325 MG TABLET 650 MG PO (21:05)
[2025-03-09] MEDS: METOCLOPRAMIDE 10 MG/2 ML INJ IV (21:05)
[2025-03-09] MEDS: PIPERACILLIN/TAZO 3.375 GM in SODIUM CHLORIDE 0.9% 100 ML IV (23:49)
[2025-03-10] MEDS: LACTATED RINGERS 1,000 ML 100 ML IV ×2 (03:08→11:18)
[2025-03-10 04:32] VITALS: BP 111/57; PULSE 55; RESP 16; TEMP 36.6; O2SAT 96
[2025-03-10 05:38] LABS: Add Manual Diff / Slide Review NO; Hematocrit 31.1 % (36-46); Hemoglobin 11.2 g/dL (12.0-16.0); Lymphocytes Absolute Auto 600 /uL (1100-4500); Mean Corpuscular HGB Conc 35.9 % (30-36); Mean Corpuscular Hemoglobin 32.9 PG (26-34); Mean Corpuscular Volume 91.5 fL (80-100); Platelet Count 135 X10^3/uL (150-400)
[2025-03-10 05:43] LABS: Alanine Aminotransferase 16 IU/L (<35); Albumin 3.3 g/dL (3.5-5.0); Albumin Globulin Ratio 1.3 (1.0-2.8); Alkaline Phosphatase 25 U/L (38-126); Blood Urea Nitrogen 11 mg/dL (7-17); Calcium 8.6 mg/dL (8.4-10.2); Carbon Dioxide 23 mmol/L (22-32); Chloride 104 mmol/L (98-107); Estimated Glomerular Filt Rate > 60 mL/min (>60); Globulin 2.6 g/dL (1.7-4.1); Glucose 111 mg/dL (70-99); HEMOLYSIS < 15 (0-50); Potassium 4.0 mmol/L (3.4-5.1); Sodium 135 mmol/L (137-145); Total Protein 5.9 g/dL (6.3-8.2)
[2025-03-10] MEDS: PANTOPRAZOLE DR 40 MG TABLET PO (06:13)
[2025-03-10 08:00] VITALS: BP 119/67; PULSE 55; RESP 18; TEMP 36.8; O2SAT 97
--- NOTE | 2025-03-10 08:22 | P.PN_ITS ---
Subjective Subjective Date Patient Seen: 03/10/25 Interval history: Chief complaint: Appendicitis History of present illness: 80-year-old female taking to the operating room emergently for acute appendicitis underwent appendectomy by general surgery. Internal medicine was asked to consult on this patient. Postoperatively in the PACU patient was alert and conversant the only complaint was left arm pain but only while the potassium was infusing in that IV in the left arm. There was concern about possibility of cardiac instability however EKG was normal sinus rhythm with chronic T-wave inversions in V1 and V2 no acute ST segment changes no arrhythmias and troponin was below detectable. Review of the vital signs during the surgery by anesthesia showed stable autonomic function Past medical history: Benign paroxysmal positional vertigo Essential tremor Plantar fasciitis, bilateral Autonomic dysfunction with Hypotension Greater trochanteric bursitis of right hip Heart palpitations with negative workup on by Cardiology for dysrhythmia Dystonia Physical exam: Elderly female alert conversant pleasant HEENT unremarkable Neck no JVD no carotid bruit Heart rate and rhythm regular Lungs clear from apices to bases Abdomen nondistended diffusely tender bowel sounds not present at the time of my examination MARCELLE drain with serosanguineous fluid No cyanosis edema of extremities Moves all extremities Neuro nonfocal Assessment and plan: Postop for gangrenous appendicitis with somewhat complicated location of the appendix * Management per surgery stewardship * Antibiotics per surgery History of autonomic dysfunction: * No signs of instability today * Continue fludrocortisone Mild hypokalemia potassium 3.4 * Repleted 3.7 we will complete repletion to 4.0 DVT prophylaxis: * Defer to surgery stewardship Code status: Full code blue Disposition: * Inpatient management difficult to predict the length of hospitalization expect at least 2-5 days * Post hospitalization rehabilitation needs to be determined in that time. Time-based billin minutes were involved in the evaluation of this consultation which included [id number] evaluation of the patient direct physical examination of the patient review of objective laboratory and imaging findings consultation with anesthesiologist and general surgeon and discussion with nursing treatment team Exam Vital Signs (past 8 hours): - 03/10/25 04:32 Temperature 97.8 F Pulse Rate 55 L Respiratory Rate 16 Blood Pressure 111/57 L Pulse Oximetry 96 Oxygen Delivery Method Nasal Cannula Oxygen Flow Rate 0 Objective Labs 03/10/25 05:06 03/10/25 05:06 Labs: Laboratory Results - last 24 hr 03/09/25 03/09/25 03/09/25 09:22 10:00 15:02 WBC 9.3 RBC 4.19 Hgb 13.5 Hct 38.3 MCV 91.3 MCH 32.1 MCHC 35.2 RDW 13.5 Plt Count 158 Neut % (Auto) 67.7 Lymph % (Auto) 21.5 L [place] % (Auto) 9.3 Eos % (Auto) 0.7 L Baso % (Auto) 0.8 Neut # (Auto) 6300 Lymph # (Auto) 2000 [place] # (Auto) 900 Eos # (Auto) 100 Baso # (Auto) 100 Sodium 136 L Potassium 3.2 L Chloride 105 Carbon Dioxide 22 BUN 12 Creatinine 0.80 Estimated GFR > 60 BUN/Creatinine Ratio 15.0 Glucose 97 POC Whole Bld Glucose Calcium 9.2 Total Bilirubin 1.1 AST 22 ALT 16 Alkaline Phosphatase 32 L Ammonia < 9 L Total Creatine Kinase 41 Troponin I < 0.012 Total Protein 7.2 Albumin 4.3 Globulin 2.9 Albumin/Globulin Ratio 1.5 Lipase 106 03/09/25 03/09/25 03/10/25 15:50 16:34 05:06 WBC 8.7 RBC 3.40 L Hgb 11.2 L Hct 31.1 L MCV 91.5 MCH 32.9 MCHC 35.9 RDW 13.8 Plt Count 135 L Neut % (Auto) 86.0 H Lymph % (Auto) 7.3 L [place] % (Auto) 6.6 Eos % (Auto) 0.0 L Baso % (Auto) 0.1 Neut # (Auto) 7500 H Lymph # (Auto) 600 L [place] # (Auto) 600 Eos # (Auto) 0 Baso # (Auto) 0 Sodium 135 L Potassium 3.7 4.0 Chloride 104 Carbon Dioxide 23 BUN 11 Creatinine 0.72 Estimated GFR > 60 BUN/Creatinine Ratio 15.3 Glucose 111 H POC Whole Bld Glucose 132 H Calcium 8.6 Total Bilirubin 0.8 AST 26 ALT 16 Alkaline Phosphatase 25 L Ammonia Total Creatine Kinase Troponin I Total Protein 5.9 L Albumin 3.3 L Globulin 2.6 Albumin/Globulin Ratio 1.3 Lipase [facility] Medical History Abdominal pain Abdominal tenderness Acute abdominal pain in right lower quadrant Acute pain of right shoulder Anxiety about health Autonomic dysfunction Balance problem Benign paroxysmal positional vertigo Cervical somatic dysfunction Cervical stenosis of spine Chronic low back pain without sciatica Chronic thoracic back pain Cranial somatic dysfunction Cystitis 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[place] Essential tremor Excessive cerumen in right ear canal Frequent falls Greater trochanteric bursitis of left hip Greater trochanteric bursitis of right hip Heart palpitations Hypotension Localized papular rash Lumbar facet arthropathy Lumbar region somatic dysfunction Mixed action and resting tremor Nausea Nausea & vomiting Neck pain Pelvic somatic dysfunction Plantar fasciitis, bilateral Poor appetite Sacral region somatic dysfunction Scalp itch Segmental and somatic dysfunction of abdomen and other regions Segmental and somatic dysfunction of rib cage Strain of rectus abdominis muscle Supraventricular tachycardia, paroxysmal Thoracic region somatic dysfunction Upper extremity somatic dysfunction Surgical History History of cataract removal with insertion of prosthetic lens History of lumpectomy (01/10/02) S/P total abdominal hysterectomy and bilateral salpingo-oophorectomy Status post tubal ligation Family History Brother Age: 81 Hyperlipidemia Mother Hyperlipidemia Ovarian cancer History of cholelithiasis Pheochromocytoma Sister Essential hypertension Hyperlipidemia Social History household members: none Smoking Status: Never smoker Tobacco: How many years used: 1 second hand exposure: No alcohol intake: former substance use type: does not use Assessment & Plan Time-Based Coding :: [TOTAL MINUTES] spent with patient and on the chart (including review of chart, obtaining history, exam, reviewing outside data, placing orders, documenting exam and treatment plan, and counseling patient) on [DATE].
[2025-03-10] MEDS: PIPERACILLIN/TAZO 3.375 GM in SODIUM CHLORIDE 0.9% 100 ML IV ×2 (09:03→15:59)
[2025-03-10] MEDS: ENOXAPARIN 40 MG/0.4 ML SYRINGE SUBCUT (09:03)
[2025-03-10] MEDS: CHOLECALCIFEROL (VITAMIN D3) 1,000 UNIT TABLET 2000 UNIT PO (09:04)
[2025-03-10] MEDS: MAGNESIUM OXIDE 400 MG TABLET PO (09:04)
[2025-03-10] MEDS: PROGESTERONE, MICRONIZED 100 MG CAPSULE PO (09:04)
[2025-03-10] MEDS: FLUDROCORTISONE 0.1 MG TABLET 0.2 MG PO (09:04)
[2025-03-10] MEDS: ACETAMINOPHEN 325 MG TABLET 650 MG PO ×3 (09:05→21:34)
--- NOTE | 2025-03-10 09:48 | P.PN_ITS ---
Subjective Subjective Date Patient Seen: 03/10/25 Time Patient Seen: 09:45 Interval history: Patient is resting comfortably in bed postop day 1. Laparoscopic appendectomy. Patient states she is feeling much better decreased abdominal pain just mostly some incisional pain from the port sites. The patient to has had some nausea after injections of narcotics. But otherwise is doing quite well. Patient had some ST segment changes on EKG but are troponins are less than 0.012. She denies any chest pain. Patient's morning laboratory shows WBC of 8.7 hemoglobin of 11.2 hematocrit is 31.1 platelets are 135,000 sodium is 135 potassium 4.0 chloride 104 bicarb is 23 BUN of 11 creatinine 0.74 random blood sugar is 111 normal LFTs. Patient's path report is pending. Vitals: Temperature is 98.2? pulse 55 respirations 18 BP is 119/67 SaO2 is 97% on room air. MARCELLE output is thin serous Heart regular rate and rhythm without murmurs. Lungs are clear to auscultation diminished in the bases no rales rhonchi or wheezes noted. Abdomen is soft nondistended incisions are clear slight drainage noted around the MARCELLE site. But no infectious changes are noted. Impression: Postop day 1. Laparoscopic appendectomy with retrocecal appendix gangrenous tip touching the gallbladder and liver Plan: Discussed with the patient the findings all questions were answered patient's satisfaction patient we will have her diet advanced we will DC IV DC IV antibiotics switched over to oral antibiotics if doing well possible discharge in the a.m.. Patient has been given normal postoperative instructions on lifting stairs walking driving diet bathing exercise infectious changes wound care. Awaiting clearance from hospitalist on her cardiac workup. Exam Vital Signs (past 8 hours): - 03/10/25 04:32 03/10/25 08:00 Temperature 97.8 F 98.2 F Pulse Rate 55 L 55 L Respiratory Rate 16 18 Blood Pressure 111/57 L 119/67 Pulse Oximetry 96 97 Oxygen Delivery Method Nasal Cannula Oxygen Flow Rate 0 Objective Labs 03/10/25 05:06 03/10/25 05:06 Labs: Laboratory Results - last 24 hr 03/09/25 03/09/25 03/09/25 10:00 15:02 15:50 WBC RBC Hgb Hct MCV MCH MCHC RDW Plt Count Neut % (Auto) Lymph % (Auto) [place] % (Auto) Eos % (Auto) Baso % (Auto) Neut # (Auto) Lymph # (Auto) [place] # (Auto) Eos # (Auto) Baso # (Auto) Sodium Potassium 3.7 Chloride Carbon Dioxide BUN Creatinine Estimated GFR BUN/Creatinine Ratio Glucose POC Whole Bld Glucose Calcium Total Bilirubin AST ALT Alkaline Phosphatase Ammonia < 9 L Total Creatine Kinase 41 Troponin I < 0.012 Total Protein Albumin Globulin Albumin/Globulin Ratio 03/09/25 03/10/25 16:34 05:06 WBC 8.7 RBC 3.40 L Hgb 11.2 L Hct 31.1 L MCV 91.5 MCH 32.9 MCHC 35.9 RDW 13.8 Plt Count 135 L Neut % (Auto) 86.0 H Lymph % (Auto) 7.3 L [place] % (Auto) 6.6 Eos % (Auto) 0.0 L Baso % (Auto) 0.1 Neut # (Auto) 7500 H Lymph # (Auto) 600 L [place] # (Auto) 600 Eos # (Auto) 0 Baso # (Auto) 0 Sodium 135 L Potassium 4.0 Chloride 104 Carbon Dioxide 23 BUN 11 Creatinine 0.72 Estimated GFR > 60 BUN/Creatinine Ratio 15.3 Glucose 111 H POC Whole Bld Glucose 132 H Calcium 8.6 Total Bilirubin 0.8 AST 26 ALT 16 Alkaline Phosphatase 25 L Ammonia Total Creatine Kinase Troponin I Total Protein 5.9 L Albumin 3.3 L Globulin 2.6 Albumin/Globulin Ratio 1.3 [facility] Medical History Abdominal pain Abdominal tenderness Acute abdominal pain in right lower quadrant Acute pain of right shoulder Anxiety about health Autonomic dysfunction Balance problem Benign paroxysmal positional vertigo Cervical somatic dysfunction Cervical stenosis of spine Chronic low back pain without sciatica Chronic thoracic back pain Cranial somatic dysfunction Cystitis 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[place] Essential tremor Excessive cerumen in right ear canal Frequent falls Greater trochanteric bursitis of left hip Greater trochanteric bursitis of right hip Heart palpitations Hypotension Localized papular rash Lumbar facet arthropathy Lumbar region somatic dysfunction Mixed action and resting tremor Nausea Nausea & vomiting Neck pain Pelvic somatic dysfunction Plantar fasciitis, bilateral Poor appetite Sacral region somatic dysfunction Scalp itch Segmental and somatic dysfunction of abdomen and other regions Segmental and somatic dysfunction of rib cage Strain of rectus abdominis muscle Supraventricular tachycardia, paroxysmal Thoracic region somatic dysfunction Upper extremity somatic dysfunction Surgical History History of cataract removal with insertion of prosthetic lens History of lumpectomy (01/10/02) S/P total abdominal hysterectomy and bilateral salpingo-oophorectomy Status post tubal ligation Family History Brother Age: 81 Hyperlipidemia Mother Hyperlipidemia Ovarian cancer History of cholelithiasis Pheochromocytoma Sister Essential hypertension Hyperlipidemia Social History household members: none Smoking Status: Never smoker Tobacco: How many years used: 1 second hand exposure: No alcohol intake: former substance use type: does not use Assessment & Plan Time-Based Coding :: [TOTAL MINUTES] spent with patient and on the chart (including review of chart, obtaining history, exam, reviewing outside data, placing orders, documenting exam and treatment plan, and counseling patient) on [DATE]. PROFEE Yarn Examiner Document charge(s): Yes
[2025-03-10] MEDS: AMOXICILLIN/CLAV 875/125 MG 1 TAB PO ×2 (11:17→21:34)
[2025-03-10 12:00] VITALS: BP 122/60; PULSE 50; RESP 16; TEMP 37.2; O2SAT 100
--- NOTE | 2025-03-10 14:59 | CM.DANOTE ---
Initial DCP Assessment Note Pt is a 80 yo female, resident of [place], s/p lap appy - gangrenous appendicitis- complicated by location of appendix and cardiac history. Surgery admitted, hospitalist consulting. PCP: Enrique Arreaga Payer: In[employer] Reviewed chart, pt discussed in multidisciplinary rounds this morning. ROWAN 03/11. Patient lives independently in [place], brother lives across the street. Patient denies needs from SW team. No barriers identified at this time to patient's safe discharge home w/family to assist as needed; close outpatient f/u recommended. Social work team will plan to follow clinical course closely in case any DC needs or concerns arise. SAMANTHA Galvan Discharge Planning/Care Management CM Discharge Assessment Start: 03/09/25 11:51 Freq: Status: Active Protocol: Document 03/10/25 14:56 LUIS (Rec: 03/10/25 14:58 LUIS [id number]) Discharge Planning Assessment Assigned Discharge SAMANTHA Howell Television Journalist Provider Enrique Arreaga Insurance Comment [employer] DPOA/Assigned brother Mack Designee Name Contact Information [phone] or [phone] Advance Directives? Yes: End of Life [place] Advance Directives Yes on File History Provided By Patient Prior Living House Arrangements Comment Brother lives across the street Household Members none Type of Drives own vehicle transporation used prior to admit Independent with ADL Yes 's Is patient alert and Yes oriented? Discharge Plan Home Transportation Family Arrangement Referrals Initiated None needed
[2025-03-10 16:00] VITALS: BP 101/62; PULSE 62; RESP 15; TEMP 36.6; O2SAT 96
[2025-03-10 19:31] VITALS: BP 118/61; PULSE 55; RESP 17; TEMP 36.4; O2SAT 97
[2025-03-11] MEDS: PANTOPRAZOLE DR 40 MG TABLET PO (06:20)
[2025-03-11 06:38] LABS: Hematocrit 32.1 % (36-46); Hemoglobin 11.3 g/dL (12.0-16.0); Mean Corpuscular HGB Conc 35.2 % (30-36); Mean Corpuscular Hemoglobin 32.5 PG (26-34); Mean Corpuscular Volume 92.2 fL (80-100); Platelet Count 142 X10^3/uL (150-400)
[2025-03-11 08:00] VITALS: BP 109/65; PULSE 73; RESP 19; TEMP 37.3; O2SAT 97
[2025-03-11] MEDS: FLUDROCORTISONE 0.1 MG TABLET 0.2 MG PO (08:42)
[2025-03-11] MEDS: MAGNESIUM OXIDE 400 MG TABLET PO (08:42)
[2025-03-11] MEDS: CHOLECALCIFEROL (VITAMIN D3) 1,000 UNIT TABLET 2000 UNIT PO (08:42)
[2025-03-11] MEDS: AMOXICILLIN/CLAV 875/125 MG 1 TAB PO (08:42)
[2025-03-11] MEDS: PROGESTERONE, MICRONIZED 100 MG CAPSULE PO (08:43)
[2025-03-11] MEDS: ENOXAPARIN 40 MG/0.4 ML SYRINGE SUBCUT (08:43)
--- NOTE | 2025-03-11 09:05 | PM.PN.IH.1 ---
Subjective Subjective Date Patient Seen: 03/11/25 Time Patient Seen: 08:30 Interval history: Patient is resting comfortably in bed tolerating diet having no problems is feeling much better. Having no further abdominal pain other than some mild incisional discomfort. Patient is wanting to go home. Patient is on oral antibiotics at this time morning WBC is 5.4 hemoglobin 11.3 hematocrit is 32.1 platelets are 142,000. Path report is still pending. Vitals: Temperature is 97.5? pulse 55 respirations 17 BP is 118/61 SaO2 is 97% on room air. Heart regular rate and rhythm without murmurs. Lungs are clear to auscultation no rales rhonchi or wheezes noted moderate inspiratory and expiratory effort. Abdomen is soft nondistended incision sites are clean and dry MARCELLE site is clear. MARCELLE drainage is thin serous. No signs of infection or inflammation. Impression: Postop day 2. Laparoscopic appendectomy with retrocecal appendix tip touching gallbladder and liver. Plan: Discussed with patient the findings and discussed normal postoperative instructions on lifting stairs walking driving diet bathing exercise infectious changes wound care. Patient desires no narcotics was told to take NSAID of choice. We will send patient home with no antibiotics. Patient is follow back up in the [facility] offices in about 2 weeks for path report and follow-up. Returned if any problems or questions or concerns to the emergency room. All questions were answered to patient's satisfaction. We will DC MARCELLE prior to discharge. Exam Vital Signs (past 8 hours): - 03/11/25 08:00 Temperature 99.2 F Pulse Rate 73 Respiratory Rate 19 Blood Pressure 109/65 Pulse Oximetry 97 Oxygen Delivery Method Room Air Oxygen Flow Rate 0 Objective Labs 03/11/25 05:41 03/10/25 05:06 Labs: Laboratory Results - last 24 hr 03/11/25 05:41 WBC 5.4 RBC 3.48 L Hgb 11.3 L Hct 32.1 L MCV 92.2 MCH 32.5 MCHC 35.2 RDW 13.7 Plt Count 142 L [facility] Medical History Abdominal pain Abdominal tenderness Acute abdominal pain in right lower quadrant Acute pain of right shoulder Anxiety about health Autonomic dysfunction Balance problem Benign paroxysmal positional vertigo Cervical somatic dysfunction Cervical stenosis of spine Chronic low back pain without sciatica Chronic thoracic back pain Cranial somatic dysfunction Cystitis 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[place] Essential tremor Excessive cerumen in right ear canal Frequent falls Greater trochanteric bursitis of left hip Greater trochanteric bursitis of right hip Heart palpitations Hypotension Localized papular rash Lumbar facet arthropathy Lumbar region somatic dysfunction Mixed action and resting tremor Nausea Nausea & vomiting Neck pain Pelvic somatic dysfunction Plantar fasciitis, bilateral Poor appetite Sacral region somatic dysfunction Scalp itch Segmental and somatic dysfunction of abdomen and other regions Segmental and somatic dysfunction of rib cage Strain of rectus abdominis muscle Supraventricular tachycardia, paroxysmal Thoracic region somatic dysfunction Upper extremity somatic dysfunction Surgical History History of cataract removal with insertion of prosthetic lens History of lumpectomy (01/10/02) S/P total abdominal hysterectomy and bilateral salpingo-oophorectomy Status post tubal ligation Family History Brother Age: 81 Hyperlipidemia Mother Hyperlipidemia Ovarian cancer History of cholelithiasis Pheochromocytoma Sister Essential hypertension Hyperlipidemia Social History household members: none Smoking Status: Never smoker Tobacco: How many years used: 1 second hand exposure: No alcohol intake: former substance use type: does not use Assessment & Plan Time-Based Coding :: [TOTAL MINUTES] spent with patient and on the chart (including review of chart, obtaining history, exam, reviewing outside data, placing orders, documenting exam and treatment plan, and counseling patient) on [DATE]. PROFEE Captain Waiter/Waitress Document charge(s): Yes
--- NOTE | 2025-03-11 09:22 | PM.DS.IH.1 ---
History of Present Illness History of Present Illness Date Patient Seen: 03/11/25 Time Patient Seen: 08:30 Date of Onset of Symptoms: 03/05/25 Chief complaint: Sent from Dr. Arreaga Acute Appendicitis Narrative: Patient is a 80-year-old white female presents to the emergency room with nausea vomiting without any hematemesis. Six stomach for 6 days with right lower quadrant pain of 4 days' duration. The patient went and saw her family physician on 03/08/[address] scan which showed acute appendicitis she was told to go the emergency room she felt it was not needed. Patient shows up in the emergency room today with worsening abdominal pain hurts to cough laugh move car ride was painful. CT scan was reviewed which shows an inflamed non perforated or abscessed appendix. Patient last ate 03/08/2025 approximately 5:00 p.m.. Patient ER laboratory shows WBC of 9.3 hemoglobin is 13.5 hematocrit is 38.3 platelets a 158,000 sodium is 136 potassium 3.2 chloride 105 bicarb is 22 BUN of 12 creatinine 0.8 random blood sugar is 97 normal LFTs alkaline phosphatase is 32 lipase is 106. Allergies: Levaquin, sulfa, Cipro, Macrobid Medications: Cholecalciferol, calcitonin, oral cortisone, gabapentin, lansoprazole, magnesium, meloxicam, Zofran, prednisone, rosuvastatin, tramadol Past medical history: Anxiety, depression, dentures, 0 para 0 ab 0, history of dysautonomia, history of SVT, history of left breast cancer in 2001 treated with OR chemo and radiation therapy, degenerative joint disease with trochanteric bursitis, diverticulosis, history of colon polyps. Patient denies any other heart lungs digestive musculoskeletal neurological seizure disorder psychiatric problems risks are infectious diseases HIV or AIDS. 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 1966, denies any alcohol in years, denies any recreational drug usage. Vitals: Temperature is 97.9? pulse is 77 respirations 16 BP is 136/64 SaO2 is 99% on room air. Patient is 5 ft 5 in 120 lb. Head is normocephalic eyes PERRLA EOMI is intact nares are clear septum midline EACs and pinnae unremarkable oropharyngeal cavity dentures are in place heart regular rate and rhythm without murmurs. Lungs clear to auscultation poor inspiratory and expiratory effort poor chest wall motion noted. Abdomen is soft with hypoactive bowel sounds negative Luis's Honeycutt great Bowman's Galo's positive McBurney's positive rebound positive guarding. Musculoskeletal moderate muscle tone and strength equal bilaterally no gross deficits elicited. Impression: Acute right lower quadrant pain of [address] days[address] duration with CT scan showing acute appendicitis patient having rebound and guarding Dysautonomia History of SVT History of left breast cancer treated with surgery radiation and chemo in 2001 Hypertension Plan: Discussed with patient and family in room the findings need for laparoscopic appendectomy possible open procedure risks and complications were fully explained including risk for cardiopulmonary depression infection bleeding bowel injury possible conversion to open procedure. All questions were answered to their satisfaction we will proceed to OR this date. We will admit patient and postoperatively. We will consult hospitalist for medical management. Discharge Providers Provider Date of admission: 03/09/25 11:46 Discharge Date: 03/11/25 Primary care physician: Enrique Arreaga DO Consults: 03/09/25 11:40 hospitalist [Consult to Hospitalist Service] Stat Comment: Consulting Provider: Sebastian Shepard V Reason for consultation: Medical management Has provider been notified: No 03/09/25 15:25 Consult to Discharge Planning Routine Comment: Discharge provider: Enrique Conrad DO Summary Hospital Course Discharge Diagnosis: Postop day 2. Laparoscopic appendectomy Hospital Course: Patient was seen in consultation in the emergency room on 03/09/2025 for abdominal pain which started 4 days prior. The patient was worked up was noted to have an acute appendicitis. Discussed with patient need for laparoscopic appendectomy procedure risks and complications were fully explained patient understood and consented. The patient was taken to surgery on that date underwent a laparoscopic appendectomy with a retrocecal appendix which was running the whole length of the posterior ascending colon with the tip of the appendix slightly gangrenous attached to the gallbladder and inferior aspect of the liver. Patient tolerated procedure well was admitted in the hospital postoperatively and monitored postop day 1. Was doing well with switch from IV antibiotics to oral antibiotics postop day 2. Was doing well with a normal white blood count doing well and desiring to go home. The patient was given normal postoperative instructions on lifting stairs walking driving diet bathing exercise infectious changes wound care all questions were answered to patient's satisfaction. No need for oral antibiotics. Patient desires no narcotics. Patient has follow-up in the surgical offices in 2 weeks for follow-up and path report return if any problems questions or concerns. Status at Discharge Cognitive/behavioral status at discharge: oriented Functional status at discharge: independent ambulation Overall status at discharge: patient is back to baseline Time Spent with Patient Time spent: Greater than 30 minutes Exam Vital Signs (past 8 hours): - 03/11/25 08:00 Temperature 99.2 F Pulse Rate 73 Respiratory Rate 19 Blood Pressure 109/65 Pulse Oximetry 97 Oxygen Delivery Method Room Air Oxygen Flow Rate 0 Narrative Exam Narrative: Heart regular rate and rhythm without murmurs. Lungs are clear to auscultation no rales or wheezes noted. Abdomen is soft nondistended incision sites are clear and dry without any infectious changes. MARCELLE was removed without incident patient tolerated well. Objective Labs 03/11/25 05:41 03/10/25 05:06 Labs: Laboratory Results - last 24 hr 03/11/25 05:41 WBC 5.4 RBC 3.48 L Hgb 11.3 L Hct 32.1 L MCV 92.2 MCH 32.5 MCHC 35.2 RDW 13.7 Plt Count 142 L PFSH Medical History Abdominal pain Abdominal tenderness Acute abdominal pain in right lower quadrant Acute pain of right shoulder Anxiety about health Autonomic dysfunction Balance problem Benign paroxysmal positional vertigo Cervical somatic dysfunction Cervical stenosis of spine Chronic low back pain without sciatica Chronic thoracic back pain Cranial somatic dysfunction Cystitis 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[place] Essential tremor Excessive cerumen in right ear canal Frequent falls Greater trochanteric bursitis of left hip Greater trochanteric bursitis of right hip Heart palpitations Hypotension Localized papular rash Lumbar facet arthropathy Lumbar region somatic dysfunction Mixed action and resting tremor Nausea Nausea & vomiting Neck pain Pelvic somatic dysfunction Plantar fasciitis, bilateral Poor appetite Sacral region somatic dysfunction Scalp itch Segmental and somatic dysfunction of abdomen and other regions Segmental and somatic dysfunction of rib cage Strain of rectus abdominis muscle Supraventricular tachycardia, paroxysmal Thoracic region somatic dysfunction Upper extremity somatic dysfunction Surgical History History of cataract removal with insertion of prosthetic lens History of lumpectomy (01/10/02) S/P total abdominal hysterectomy and bilateral salpingo-oophorectomy Status post tubal ligation Family History Brother Age: 81 Hyperlipidemia Mother Hyperlipidemia Ovarian cancer History of cholelithiasis Pheochromocytoma Sister Essential hypertension Hyperlipidemia Social History household members: none Smoking Status: Never smoker Tobacco: How many years used: 1 second hand exposure: No alcohol intake: former substance use type: does not use Discharge Plan Discharge Plan Patient Disposition: Home Provider Discharge Comment: Discharge postop day 2. Laparoscopic appendectomy Discharge orders & Medications Prescriptions: Continued AMITR/CHUCK/KETAM TOPICAL SCALP 1/8/0.5% SOLUTION solution See Rx Instructions .ROUTE .COMPLEX Qty: 100 0RF Rx Instructions: Apply 1.5 ml to affected area of scalp twice daily.*squeeze bottle*; calcitonin (salmon) 200 unit/actuation spray,non-aerosol 1 spray Intranasal DAILY Qty: 3 3RF Rx Instructions: Alternate nostril daily meloxicam 15 mg tablet 15 mg PO DAILY Qty: 90 3RF lansoprazole 30 mg capsule,delayed release(DR/EC) 30 mg PO DAILY Qty: 90 3RF gabapentin 100 mg capsule 200 mg PO BEDTIME Qty: 180 3RF progesterone micronized 100 mg capsule 100 mg PO QAM Qty: 90 3RF rosuvastatin 5 mg tablet 5 mg PO 3XW Qty: 39 3RF cholecalciferol (vitamin D3) 50 mcg (2,000 unit) capsule 50 mcg PO DAILY magnesium aspart,citrate,oxide 400 mg magnesium capsule 400 mg PO DAILY Rx Instructions: Magnesium Citrate tramadol 50 mg tablet 50 mg PO Q8H PRN (Reason: pain) Qty: 20 5RF Rx Instructions: EXEMPT fludrocortisone 0.1 mg tablet 0.2 mg PO DAILY Qty: 60 5RF ondansetron 4 mg tablet,disintegrating 4 mg PO TID-QID PRN (Reason: nausea and vomiting) Qty: 60 5RF Follow up/Referrals: Enrique Arreaga DO [Primary Care Provider, Family Practice] Diet/Activity/Treatments Diet: Diet as Tolerated Skin/Wound/Dressing Care Report to your healthcare provider any signs of infection, such as:: chills, fever, night sweats, increased pain, unusual drainage and unusual redness Visit Report/Discharge Packet Instructions: DI for an Appendectomy, [facility]: Wound Care Stand Alone Forms: Patient Portal/API, Surgery Discharge Discharge Data Primary Care Provider: Enrique Arreaga Attending Provider: Enrique Conrad Admit Date/Time: 03/09/25 11:46 [facility] Charge Codes Discharge inpatient/observation: [id number]
--- NOTE | 2025-03-11 11:07 | PC.NURSE ---
D/c packet printed and reviewed with pt. IV removed. Confirmed that MARCELLE drain already removed. Pt exited via w/c with RN to private vehicle.
== END 2025-03-11 10:59 | disposition home or self-care (01) | DRG 399 ==
LOC: ED 11:35 → AC 11:51
PROVIDERS: Internal Medicine; Nurse Anesthetist, Certified Registered; Admitting Provider Surgery; Emergency Provider Family Medicine; Family Provider Family Medicine; PCP Family Medicine; Referring Provider Family Medicine; Visit Provider Surgery
PROC: 0DTJ4ZZ Resection of Appendix, Percutaneous Endoscopic Approach (ICD-10-PCS; CPT 44970; principal; 2025-03-09 14:00)
DX: K35.891 Other acute appendicitis without perforation, with gangrene (principal); E87.6 Hypokalemia; I10 Essential (primary) hypertension; F45.8 Other somatoform disorders; Z87.891 Personal history of nicotine dependence; Z85.3 Personal history of malignant neoplasm of breast; Z86.79 Personal history of other diseases of the circulatory system
CPT/HCPCS: 36415; 74177; 80053; 82140; 82550; 82565; 82962; 83690; 84132; 84484; 85025; 85027; 93005; 96365; 96375; 99284; G0378; J0131; J0330; J1100; J1171; J1650; J2405; J2543; J2704; J2765; J3010; J3490; Q9967

== ENCOUNTER 2025-03-12 17:14 | Emergency (ER) | payer MEDICARE, OTHER, SELFPAY ==
[2025-03-12] VITALS (7 sets, daily range): BP systolic 154–172; BP diastolic 74–84; PULSE 65–76; RESP 15–20; TEMP 37; O2SAT 94–100; BMI 19.3
--- NOTE | 2025-03-12 17:34 | ED.ABDPAIN ---
HPI - Abdominal Pain <Shayla Stevens PA-C - Last Filed: 03/12/25 20:48> General Chief Complaint: Abdominal Pain Stated Complaint: abd pain post op Time Seen by Provider: 03/12/25 17:34 Source: patient Mode of arrival: Ambulatory History of Present Illness HPI narrative: 80-year-old female presents via EMS for lower abdominal pain. She is postop day 3 following a laparoscopic appendectomy performed here by Dr. Conrad. She was discharged from the hospital yesterday, she had no issues overnight. Today at around 330p this afternoon she had sudden sharp, fast, pain 10/10 that was constant, pointing to her midline just below the umbilicus all the way to her pubic bone. Oseguera then had one episode of vomiting, clear food product with an associated hot flush which resolved. She is denying any radiation through to the back, at no time has she had any fever, chills, body aches or joint pains. She is denying any chest pain or difficulty breathing. She currently rates the pain as a 6/10. Last bowel movement was described as diarrhea x1 this morning, she continues to pass gas without any difficulty. Last oral intake was toast and yogurt this morning with water throughout the day and a pancake at 3:00 p.m. History is significant for hysterectomy, she is up-to-date on her colonoscopy last found to have some polyps, history of POTS, tremor, anxiety, dysautonomia, SVT, no history of cardioversion or intervention. All other systems reviewed and are negative. Related Data Home Medications ?Medication ?Instructions ?Recorded ?Confirmed cholecalciferol (vitamin D3) 50 50 mcg PO DAILY 11/12/21 03/13/25 mcg (2,000 unit) capsule magnesium aspart,citrate,oxide 400 mg PO DAILY 07/09/22 03/13/25 acetaminophen 500 mg tablet 500 mg PO ONCE PRN 03/13/25 03/13/25 Previous Rx's ?Medication ?Instructions ?Recorded AMITR/CHUCK/KETAM TOPICAL SCALP See Rx Instructions .Route 10/04/23 1/8/0.5% SOLUTION .COMPLEX #100 mL calcitonin (salmon) 200 1 spray intranasal DAILY #3 ea 12/03/23 unit/actuation nasal spray meloxicam 15 mg tablet 15 mg PO DAILY #90 tabs 08/24/24 ondansetron 4 mg disintegrating 4 mg PO TID-QID PRN nausea and 09/08/24 tablet vomiting #60 tabs fludrocortisone 0.1 mg tablet 0.2 mg (2 x 0.1 mg) PO DAILY #60 12/01/24 tabs tramadol 50 mg tablet 50 mg PO Q8H PRN pain #20 tabs 12/01/24 lansoprazole 30 mg capsule,delayed 30 mg PO DAILY #90 caps 12/05/24 release gabapentin 100 mg capsule 200 mg (2 x 100 mg) PO BEDTIME 01/02/25 #180 caps progesterone micronized 100 mg 100 mg PO QAM #90 caps 01/02/25 capsule rosuvastatin 5 mg tablet 5 mg PO 3XW #39 tabs 01/25/25 Allergies Allergy/AdvReac Type Severity Reaction Status Date / Time levofloxacin (LEVOFLOXACIN) Allergy Severe DIZZINESS, Verified 03/12/25 17:25 WEAKNESS AND VOMITING Sulfa (Sulfonamide Allergy Severe PASSED Verified 03/12/25 17:25 Antibiotics) (SULFA OUT, (SULFONAMIDE ANTIBIOTICS)) DIZZINESS, NAUSEA ciprofloxacin (From CIPRO) Allergy Intermediate WEAKNESS, Verified 03/12/25 17:25 FAINTING, DIZZINESS nitrofurantoin (From Allergy Intermediate DIZZINESS, Verified 03/12/25 17:25 MACROBID) WEAKNESS, DIARRHEA AND VOMITING Patient History <Shayla Stevens PA-C - Last Filed: 03/12/25 20:48> Medical History Abdominal pain Abdominal tenderness Acute abdominal pain in right lower quadrant Acute pain of right shoulder Anxiety about health Autonomic dysfunction Balance problem Benign paroxysmal positional vertigo Cervical somatic dysfunction Cervical stenosis of spine Chronic low back pain without sciatica Chronic thoracic back pain Cranial somatic dysfunction Cystitis 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[place] Essential tremor Excessive cerumen in right ear canal Frequent falls Greater trochanteric bursitis of left hip Greater trochanteric bursitis of right hip Heart palpitations Hypotension Localized papular rash Lumbar facet arthropathy Lumbar region somatic dysfunction Mixed action and resting tremor Nausea Nausea & vomiting Neck pain Pelvic somatic dysfunction Plantar fasciitis, bilateral Poor appetite Sacral region somatic dysfunction Scalp itch Segmental and somatic dysfunction of abdomen and other regions Segmental and somatic dysfunction of rib cage Strain of rectus abdominis muscle Supraventricular tachycardia, paroxysmal Thoracic region somatic dysfunction Upper extremity somatic dysfunction Surgical History History of cataract removal with insertion of prosthetic lens History of lumpectomy (01/10/02) S/P total abdominal hysterectomy and bilateral salpingo-oophorectomy Status post tubal ligation Family History Brother Age: 81 Hyperlipidemia Mother Hyperlipidemia Ovarian cancer History of cholelithiasis Pheochromocytoma Sister Essential hypertension Hyperlipidemia Social History household members: none Tobacco: How many years used: 1 second hand exposure: No alcohol intake: former substance use type: does not use tobacco type: cigarettes Exam <Shayla Stevens PA-C - Last Filed: 03/12/25 20:48> Initial Vital Signs Initial Vital Signs: Vital Signs Temperature 98.6 F 03/12/25 17:24 Pulse Rate 75 03/12/25 17:24 Respiratory Rate 20 03/12/25 17:24 Blood Pressure 164/74 H 03/12/25 17:24 Pulse Oximetry 100 03/12/25 17:24 Oxygen Delivery Method Room Air 03/12/25 17:24 Vital signs reviewed and are normal except for elevated systolic. Afebrile no tachycardia. Const General: cooperative and No ill appearing Other: Seated in chair, pleasantly conversing but uncomfortable appearing. Neck Neck: normal visual inspection, no meningeal signs, trachea midline and supple Lymphatic: No lymphadenopathy Chest Chest: normal inspection of the chest and normal palpation of entire chest wall Resp Effort & Inspection: normal respiratory effort and able to speak in complete sentences Auscultation: clear to auscultation bilaterally, no rales, no rhonchi and no wheezes Cardio Rate: regular rate Rhythm: regular rhythm GI Inspection: normal to inspection, no abdominal wall ecchymosis, no edema, non-distended, incision (No redness swelling or fluctuance to laparoscopic sites) and no obesity Palpation: soft, no hepatosplenomegaly, No firm, No guarding, No mass, No pulsatile mass and tender (Midline, inferior umbilicus to symphysis pubis. No rebound tenderness.) Percussion: normal to percussion Auscultation: normal bowel sounds Other: No CVA tenderness. Back/Spine/Pelvis Back: normal to inspection, No back tenderness and No CVA tenderness Skin General: no rashes or lesions noted, elasticity normal, turgor normal, No ecchymosis and No erythema Extrem Other: No pedal edema. <Tosha Strauss MD - Last Filed: 03/13/25 23:47> Initial Vital Signs Initial Vital Signs: Vital Signs Temperature 98.6 F 03/12/25 17:24 Pulse Rate 75 03/12/25 17:24 Respiratory Rate 20 03/12/25 17:24 Blood Pressure 164/74 H 03/12/25 17:24 Pulse Oximetry 100 03/12/25 17:24 Oxygen Delivery Method Room Air 03/12/25 17:24 Course <Shayla Stevens PA-C - Last Filed: 03/12/25 20:48> Orders Ordered: Discontinued Medications Potassium Chloride/Sodium Chloride (Ns With Kcl 20 Meq) 1,000 mls @ 100 mls/hr IV CONT BRANDY Last Admin: 03/12/25 19:51 Dose: Not Given Documented By: GENTRY POTASSIUM CHLORIDE IN WATER (Potassium Cl 10 Meq/100 Ml Shanthi) 10 meq in 100 mls @ 100 mls/hr IV Q1H BRANDY Stop: 03/12/25 21:59 Last Infusion: 03/12/25 22:27 Dose: Infused Documented By: Admin: 03/12/25 21:04 Dose: 100 mls/hr Documented By: Infusion: 03/12/25 21:04 Dose: Infused Documented By: Admin: 03/12/25 19:56 Dose: 100 mls/hr Documented By: SHASHANK Ondansetron HCl (Ondansetron 4 Mg/2 Ml Inj) 4 mg IV NOW PRN PRN Reason: Nausea And Vomiting Last Admin: 03/12/25 18:39 Dose: 4 mg Documented By: ANGELIKA Ondansetron HCl (Ondansetron 4 Mg Odt) 4 mg PO NOW PRN PRN Reason: Nausea And Vomiting Potassium Chloride (Potassium Chloride 20 Meq/15 Ml Udc) 40 meq PO NOW ONE Stop: 03/12/25 19:23 Last Admin: 03/12/25 19:49 Dose: 40 meq Documented By: SHASHANK Reevaluation(s) Reevaluation #1: Patient is improved, her pain is not as severe, she is resting comfortably, we discussed her CT results, we are repleting her potassium that she is aware of, she is denying any nausea at this time, no new complaints. Remains afebrile. Reevaluation #2: Potassium infusion 20 mEq, in addition to 40 mEq p.o. denies any new complaints. Denying nausea at this time. Vital signs remained stable. Reevaluation #3: Escorted to toilet at 2030hrs. UA clean catch obtained and sent to lab. Patient returned to room, no issues with ambulation. Feels improved. Fresh warm blankets applied, IV still infusing. Well tolerated. PO challenge with orange juice, also tolerated. No recurrence of nausea or vomiting. Vital Signs Vital signs: Vital Signs - 8 hr 03/12/25 17:24 03/12/25 18:56 03/12/25 18:57 Temperature 98.6 F Pulse Rate 75 65 Respiratory Rate 20 15 Blood Pressure 164/74 H 170/79 H Pulse Oximetry 100 Oxygen Delivery Method Room Air 03/12/25 18:57 03/12/25 19:00 03/12/25 19:00 Temperature Pulse Rate 67 65 Respiratory Rate 15 15 Blood Pressure 154/81 H Pulse Oximetry 94 96 Oxygen Delivery Method 03/12/25 19:30 03/12/25 19:30 03/12/25 20:00 Temperature Pulse Rate 69 Respiratory Rate 17 Blood Pressure 170/77 H 168/75 H Pulse Oximetry 96 Oxygen Delivery Method 03/12/25 20:00 Temperature Pulse Rate 76 Respiratory Rate Blood Pressure Pulse Oximetry 96 Oxygen Delivery Method <Tosha Strauss MD - Last Filed: 03/13/25 23:47> Orders Ordered: Discontinued Medications Potassium Chloride/Sodium Chloride (Ns With Kcl 20 Meq) 1,000 mls @ 100 mls/hr IV CONT BRANDY Last Admin: 03/12/25 19:51 Dose: Not Given Documented By: GENTRY POTASSIUM CHLORIDE IN WATER (Potassium Cl 10 Meq/100 Ml Shanthi) 10 meq in 100 mls @ 100 mls/hr IV Q1H BRANDY Stop: 03/12/25 21:59 Last Infusion: 03/12/25 22:27 Dose: Infused Documented By: Admin: 03/12/25 21:04 Dose: 100 mls/hr Documented By: Infusion: 03/12/25 21:04 Dose: Infused Documented By: Admin: 03/12/25 19:56 Dose: 100 mls/hr Documented By: SHASHANK Ondansetron HCl (Ondansetron 4 Mg/2 Ml Inj) 4 mg IV NOW PRN PRN Reason: Nausea And Vomiting Last Admin: 03/12/25 18:39 Dose: 4 mg Documented By: ANGELIKA Ondansetron HCl (Ondansetron 4 Mg Odt) 4 mg PO NOW PRN PRN Reason: Nausea And Vomiting Potassium Chloride (Potassium Chloride 20 Meq/15 Ml Udc) 40 meq PO NOW ONE Stop: 03/12/25 19:23 Last Admin: 03/12/25 19:49 Dose: 40 meq Documented By: SHASHANK Vital Signs Vital signs: Vital Signs - 8 hr 03/12/25 17:24 03/12/25 18:56 03/12/25 18:57 Temperature 98.6 F Pulse Rate 75 65 Respiratory Rate 20 15 Blood Pressure 164/74 H 170/79 H Pulse Oximetry 100 Oxygen Delivery Method Room Air 03/12/25 18:57 03/12/25 19:00 03/12/25 19:00 Temperature Pulse Rate 67 65 Respiratory Rate 15 15 Blood Pressure 154/81 H Pulse Oximetry 94 96 Oxygen Delivery Method 03/12/25 19:30 03/12/25 19:30 03/12/25 20:00 Temperature Pulse Rate 69 Respiratory Rate 17 Blood Pressure 170/77 H 168/75 H Pulse Oximetry 96 Oxygen Delivery Method 03/12/25 20:00 Temperature Pulse Rate 76 Respiratory Rate Blood Pressure Pulse Oximetry 96 Oxygen Delivery Method MDM - Abdominal Pain <Shayla Stevens PA-C - Last Filed: 03/12/25 20:48> Lab Data Lab results narrative: CBC is normal, potassium was low at 2.7 and repleted with IV and p.o. in-house. Lactate normal. UA is nitrite negative, leukocytes negative, 2+ ketones, 1+ blood. Microscopy is WNL. 03/12/25 17:29 03/12/25 17:29 Labs: Lab Results 03/12/25 03/12/25 03/12/25 Range/Units 17:29 19:37 20:28 WBC 4.8 (4.5-11.0) X10^3/uL RBC 4.05 (4.0-5.2) X10^6/uL Hgb 12.8 (12.0-16.0) g/dL Hct 37.2 (36-46) % MCV 91.8 (80-100) fL MCH 31.7 (26-34) PG MCHC 34.5 (30-36) % RDW 13.5 (11.6-14.8) % Plt Count 188 (150-400) X10^3/uL Neut % (Auto) 57.5 (50-75) % Lymph % (Auto) 30.8 (25-40) % Boyd % (Auto) 10.3 (3-14) % Eos % (Auto) 0.8 L (2-4) % Baso % (Auto) 0.6 (0-2) % Neut # (Auto) 2800 (3302-7453) /uL Lymph # (Auto) 1500 (6403-9931) /uL Boyd # (Auto) 500 (0-900) /uL Eos # (Auto) 0 (0-450) /uL Baso # (Auto) 0 (0-100) /uL Sodium 134 L (137-145) mmol/L Potassium 2.7 L* D (3.4-5.1) mmol/L Chloride 100 (98-107) mmol/L Carbon Dioxide 26 (22-32) mmol/L BUN 13 (7-17) mg/dL Creatinine 0.69 (0.52-1.04) mg/dL Estimated GFR > 60 (>60) mL/min BUN/Creatinine Ratio 18.8 (6-22) Glucose 143 H (70-99) mg/dL Lactate 0.7 (0.7-2.1) mmol/L Calcium 9.3 (8.4-10.2) mg/dL Total Bilirubin 0.6 (0.2-1.3) mg/dL AST 62 H (14-36) IU/L ALT 69 H (<35) IU/L Alkaline Phosphatase 39 (38-126) U/L Total Protein 6.9 (6.3-8.2) g/dL Albumin 4.0 (3.5-5.0) g/dL Globulin 2.9 (1.7-4.1) g/dL Albumin/Globulin Ratio 1.4 (1.0-2.8) Lipase 163 D (23-300) U/L Urine Color Yellow Urine Appearance Clear Urine pH 7.5 (4.5-8.0) Ur Specific Mathews 1.010 (1.000-1.035) Urine Protein Negative (Negative) Urine Glucose (UA) Negative (Negative) g/dL Urine Ketones 2+ H (NEGATIVE) Urine Occult Blood 1+ H (Negative) Urine Nitrate Negative (Negative) Urine Bilirubin Negative (NEGATIVE) Urine Urobilinogen 1.0 (0.2) E.U./dL Ur Leukocyte Esterase Negative (NEGATIVE) Urine RBC 1-5/hpf (0-5/HPF) Urine WBC None seen (0-5/HPF) Ur Squamous Epith Cells 0-1 /hpf (0-5/HPF) Urine Bacteria None seen (None) Vol Urine Centrifuged 10ml (spun) Imaging Data CT scan - abdomen/pelvis: My Impression: Deferred to radiologist's interpretation below. Radiologist's Impression: PROCEDURE: CT ABDOMEN PELVIS W CON INDICATIONS: lap appy, mid-abd pain, afebrile TECHNIQUE: After the administration of intravenous contrast, axial sections acquired from the lung bases to the pubic symphysis. Coronal and sagittal reformats were performed. For radiation dose reduction, the following was used: automated exposure control, adjustment of mA and/or kV according to patient size. COMPARISON: [facility], CT, CT ABDOMEN PELVIS W CON, 03/08/2025, 16:41. FINDINGS: Image quality: Diagnostic. Lower Chest: No significant findings. ABDOMEN: Liver: No solid mass. Gallbladder: No radiopaque gallstones or wall thickening. Biliary ducts: No biliary dilation. Pancreas: No ductal dilation. Spleen: Size is within normal limits. Adrenal Glands: No adrenal nodules. Kidneys and Ureters: No hydronephrosis. No solid mass. No complex renal cystic lesion which requires follow up. Stomach and Bowel: Normal colonic caliber, without significant wall thickening. Recent appendectomy. Mild diverticulosis without diverticulitis. Peritoneum: Stranding with small fluid and gas in the right abdomen without organized fluid collection. Ventral Wall: No significant ventral hernia. Mild subcutaneous gas is likely postsurgical in etiology. Abdominal Nodes: No retroperitoneal or mesenteric adenopathy by size criteria. Vessels: Aorta and inferior vena cava are normal in size. Atherosclerotic vascular calcifications. PELVIS: Pelvic Organs: Unremarkable. Bladder: No bladder wall thickening, accounting for underdistention. Pelvic Nodes: No enlarged lymph nodes. Miscellaneous: No inguinal hernias are seen. Bones: No aggressive osseous abnormality. Decreased osseous mineralization. IMPRESSION: Status post recent appendectomy. There is inflammation with small fluid and gas within the right abdomen. No organized fluid collections. Dictated by: César Rodriguez M.D. on 03/12/2025 at 18:52 Approved by: César Rodriguez M.D. on 03/12/2025 at 18:56 [facility] Narrative Medical decision making narrative: Pleasant 80-year-old female postop day 3 from a laparoscopic appendectomy, she was discharged from the hospital yesterday doing fine until this afternoon when she experienced severe pain in the mid lower abdomen that caught her suddenly and she described it as a 10/10. She also had 1 episode of emesis was just basic food product. CT scan today showed some inflammation and small fluid and gas in the right abdomen. Her CBC is normal, her course in the emergency department has been uneventful, her pain is improved but has not fully resolved. She still feels gassy. She was noted to have potassium of 2.7 this has been repleted with IV 20 mEq as well as p.o. 40 mEq. Discussed the case with Dr. Strauss. The goal is for discharge home. She already has Rx ondasetron at home. Discussed the importance of returning to the emergency department if her pain recurs, changes, worsening so she develops any new worrisome symptoms. She is encouraged to follow up with her PCP regarding her potassium. Apparently was low during her hospital stay as well. We discussed keeping her activity light as well as clear liquids and bowel rest but this may include bananas. Red flag warning signs reviewed in great detail. <Tosha Strauss MD - Last Filed: 03/13/25 23:47> Lab Data Labs: Lab Results 03/12/25 03/12/25 03/12/25 Range/Units 17:29 19:37 20:28 WBC 4.8 (4.5-11.0) X10^3/uL RBC 4.05 (4.0-5.2) X10^6/uL Hgb 12.8 (12.0-16.0) g/dL Hct 37.2 (36-46) % MCV 91.8 (80-100) fL MCH 31.7 (26-34) PG MCHC 34.5 (30-36) % RDW 13.5 (11.6-14.8) % Plt Count 188 (150-400) X10^3/uL Neut % (Auto) 57.5 (50-75) % Lymph % (Auto) 30.8 (25-40) % Boyd % (Auto) 10.3 (3-14) % Eos % (Auto) 0.8 L (2-4) % Baso % (Auto) 0.6 (0-2) % Neut # (Auto) 2800 (5160-7768) /uL Lymph # (Auto) 1500 (9596-3631) /uL Boyd # (Auto) 500 (0-900) /uL Eos # (Auto) 0 (0-450) /uL Baso # (Auto) 0 (0-100) /uL Sodium 134 L (137-145) mmol/L Potassium 2.7 L* D (3.4-5.1) mmol/L Chloride 100 (98-107) mmol/L Carbon Dioxide 26 (22-32) mmol/L BUN 13 (7-17) mg/dL Creatinine 0.69 (0.52-1.04) mg/dL Estimated GFR > 60 (>60) mL/min BUN/Creatinine Ratio 18.8 (6-22) Glucose 143 H (70-99) mg/dL Lactate 0.7 (0.7-2.1) mmol/L Calcium 9.3 (8.4-10.2) mg/dL Total Bilirubin 0.6 (0.2-1.3) mg/dL AST 62 H (14-36) IU/L ALT 69 H (<35) IU/L Alkaline Phosphatase 39 (38-126) U/L Total Protein 6.9 (6.3-8.2) g/dL Albumin 4.0 (3.5-5.0) g/dL Globulin 2.9 (1.7-4.1) g/dL Albumin/Globulin Ratio 1.4 (1.0-2.8) Lipase 163 D (23-300) U/L Urine Color Yellow Urine Appearance Clear Urine pH 7.5 (4.5-8.0) Ur Specific Mathews 1.010 (1.000-1.035) Urine Protein Negative (Negative) Urine Glucose (UA) Negative (Negative) g/dL Urine Ketones 2+ H (NEGATIVE) Urine Occult Blood 1+ H (Negative) Urine Nitrate Negative (Negative) Urine Bilirubin Negative (NEGATIVE) Urine Urobilinogen 1.0 (0.2) E.U./dL Ur Leukocyte Esterase Negative (NEGATIVE) Urine RBC 1-5/hpf (0-5/HPF) Urine WBC None seen (0-5/HPF) Ur Squamous Epith Cells 0-1 /hpf (0-5/HPF) Urine Bacteria None seen (None) Vol Urine Centrifuged 10ml (spun) Discharge Plan Departure Patient Disposition: Home Clinical Impression: Postoperative abdominal pain, Hypokalemia Instructions: DI for Abdominal Pain-Adult Activity Restrictions/Additional Instructions: Your CT scan showed some gas and inflammation in the right side of her abdomen, your lab work was otherwise normal except for your potassium of 2.7. We repleted your potassium with intravenous as well as by mouth. Please follow up with your primary care provider to have this rechecked, you may take a potassium supplement [id number] I recommend 20 mEq daily for the next week. For your pain continue the Tylenol, consider a heating pad, do push fluids, keep your diet somewhat clear, consider bananas, broth, bland and colorless foods. Please do not hesitate to return to the emergency department if your pain recurs, you have any new worrisome symptoms. Do not hesitate to call 911. Prescriptions: No Action AMITR/CHUCK/KETAM TOPICAL SCALP 1/8/0.5% SOLUTION solution See Rx Instructions .ROUTE .COMPLEX Qty: 100 0RF Rx Instructions: Apply 1.5 ml to affected area of scalp twice daily.*squeeze bottle*; calcitonin (salmon) 200 unit/actuation spray,non-aerosol 1 spray Intranasal DAILY Qty: 3 3RF Rx Instructions: Alternate nostril daily meloxicam 15 mg tablet 15 mg PO DAILY Qty: 90 3RF lansoprazole 30 mg capsule,delayed release(DR/EC) 30 mg PO DAILY Qty: 90 3RF gabapentin 100 mg capsule 200 mg PO BEDTIME Qty: 180 3RF progesterone micronized 100 mg capsule 100 mg PO QAM Qty: 90 3RF rosuvastatin 5 mg tablet 5 mg PO 3XW Qty: 39 3RF cholecalciferol (vitamin D3) 50 mcg (2,000 unit) capsule 50 mcg PO DAILY magnesium aspart,citrate,oxide 400 mg magnesium capsule 400 mg PO DAILY Rx Instructions: Magnesium Citrate tramadol 50 mg tablet 50 mg PO Q8H PRN (Reason: pain) Qty: 20 5RF Rx Instructions: EXEMPT fludrocortisone 0.1 mg tablet 0.2 mg PO DAILY Qty: 60 5RF ondansetron 4 mg tablet,disintegrating 4 mg PO TID-QID PRN (Reason: nausea and vomiting) Qty: 60 5RF acetaminophen 500 mg tablet 500 mg PO ONCE PRN Patient Comments: Pt reports takes 500 mg for headache. Referrals: Enrique Arreaga DO [Primary Care Provider, Family Practice] Stand Alone Forms: Patient Portal/API ED Sign-out <Tosha Strauss MD - Last Filed: 03/13/25 23:47> Cosign ED Attending Cosignature Attestation: I was immediately available in the department for consultation throughout this patient's visit. Tosha Strauss MD
[2025-03-12 17:39] LABS: Add Manual Diff / Slide Review NO; Hematocrit 37.2 % (36-46); Hemoglobin 12.8 g/dL (12.0-16.0); Lymphocytes Absolute Auto 1500 /uL (1100-4500); Mean Corpuscular HGB Conc 34.5 % (30-36); Mean Corpuscular Hemoglobin 31.7 PG (26-34); Mean Corpuscular Volume 91.8 fL (80-100); Platelet Count 188 X10^3/uL (150-400)
[2025-03-12 17:51] LABS: Alanine Aminotransferase 69 IU/L (<35); Albumin 4.0 g/dL (3.5-5.0); Albumin Globulin Ratio 1.4 (1.0-2.8); Alkaline Phosphatase 39 U/L (38-126); Blood Urea Nitrogen 13 mg/dL (7-17); Calcium 9.3 mg/dL (8.4-10.2); Carbon Dioxide 26 mmol/L (22-32); Chloride 100 mmol/L (98-107); Estimated Glomerular Filt Rate > 60 mL/min (>60); Globulin 2.9 g/dL (1.7-4.1); Glucose 143 mg/dL (70-99); HEMOLYSIS < 15 (0-50); Lipase 163 U/L (23-300); Sodium 134 mmol/L (137-145); Total Protein 6.9 g/dL (6.3-8.2)
[2025-03-12 17:59] LABS: Potassium 2.7 mmol/L (3.4-5.1)
--- NOTE | 2025-03-12 18:00 | DI.CT.S_ITS ---
PROCEDURE: CT ABDOMEN PELVIS W CON INDICATIONS: lap appy, mid-abd pain, afebrile TECHNIQUE: After the administration of intravenous contrast, axial sections acquired from the lung bases to the pubic symphysis. Coronal and sagittal reformats were performed. For radiation dose reduction, the following was used: automated exposure control, adjustment of mA and/or kV according to patient size. COMPARISON: [facility], CT, CT ABDOMEN PELVIS W CON, 03/08/2025, 16:41. FINDINGS: Image quality: Diagnostic. Lower Chest: No significant findings. ABDOMEN: Liver: No solid mass. Gallbladder: No radiopaque gallstones or wall thickening. Biliary ducts: No biliary dilation. Pancreas: No ductal dilation. Spleen: Size is within normal limits. Adrenal Glands: No adrenal nodules. Kidneys and Ureters: No hydronephrosis. No solid mass. No complex renal cystic lesion which requires follow up. Stomach and Bowel: Normal colonic caliber, without significant wall thickening. Recent appendectomy. Mild diverticulosis without diverticulitis. Peritoneum: Stranding with small fluid and gas in the right abdomen without organized fluid collection. Ventral Wall: No significant ventral hernia. Mild subcutaneous gas is likely postsurgical in etiology. Abdominal Nodes: No retroperitoneal or mesenteric adenopathy by size criteria. Vessels: Aorta and inferior vena cava are normal in size. Atherosclerotic vascular calcifications. PELVIS: Pelvic Organs: Unremarkable. Bladder: No bladder wall thickening, accounting for underdistention. Pelvic Nodes: No enlarged lymph nodes. Miscellaneous: No inguinal hernias are seen. Bones: No aggressive osseous abnormality. Decreased osseous mineralization. IMPRESSION: Status post recent appendectomy. There is inflammation with small fluid and gas within the right abdomen. No organized fluid collections. Dictated by: César Rodriguez M.D. on 03/12/2025 at 18:52 Approved by: César Rodriguez M.D. on 03/12/2025 at 18:56
[2025-03-12] MEDS: ONDANSETRON 4 MG/2 ML INJ IV (18:39)
[2025-03-12] MEDS: POTASSIUM CHLORIDE 20 MEQ/15 ML UDC 40 MEQ PO (19:49)
[2025-03-12 19:53] LABS: Lactate (Lactic Acid) 0.7 mmol/L (0.7-2.1)
[2025-03-12] MEDS: POTASSIUM CHLORIDE IN WATER 10 MEQ/100 ML PIGGYBACK 100 MEQ IV ×2 (19:56→21:04)
[2025-03-12 20:38] LABS: Appearance Urine UA CLEAR; Bilirubin Urine UA NEGATIVE (NEGATIVE); Color Urine UA YELLOW; Glucose Urine UA NEGATIVE (Negative); Ketones Urine UA 2+ (NEGATIVE); Leukocyte Esterase Urine UA NEGATIVE (NEGATIVE); Nitrite Urine UA NEGATIVE (Negative); Occult Blood Urine UA 1+ (Negative); Protein Urine UA NEGATIVE (Negative); Specific Gravity Urine UA 1.010 (1.000-1.035); Urobilinogen Urine UA 1.0 E.U./dL (0.2)
[2025-03-12 20:40] LABS: pH Urine UA 7.5 (4.5-8.0)
== END 2025-03-12 22:28 | disposition home or self-care (01) ==
PROVIDERS: Emergency Medicine; Emergency Provider Physician Assistant Medical; Family Provider Family Medicine; PCP Family Medicine
DX: G89.18 Other acute postprocedural pain (principal); E87.6 Hypokalemia
CPT/HCPCS: 36415; 74177; 80053; 81001; 83605; 83690; 85025; 96365; 96366; 96375; 99284; J2405; Q9967

== ENCOUNTER → 2025-03-16 11:57 | Outpatient (CLI) | payer MEDICARE, OTHER, SELFPAY ==
[2025-03-16 12:53] LABS: Alanine Aminotransferase 29 IU/L (<35); Albumin 3.6 g/dL (3.5-5.0); Albumin Globulin Ratio 1.4 (1.0-2.8); Alkaline Phosphatase 37 U/L (38-126); Blood Urea Nitrogen 13 mg/dL (7-17); Calcium 9.1 mg/dL (8.4-10.2); Carbon Dioxide 27 mmol/L (22-32); Chloride 102 mmol/L (98-107); Estimated Glomerular Filt Rate > 60 mL/min (>60); Globulin 2.6 g/dL (1.7-4.1); Glucose 104 mg/dL (70-99); HEMOLYSIS < 15 (0-50); Potassium 3.2 mmol/L (3.4-5.1); Sodium 137 mmol/L (137-145); Total Protein 6.2 g/dL (6.3-8.2)
== END ==
PROVIDERS: Family Provider Family Medicine; PCP Family Medicine; Referring Provider Family Medicine; Visit Provider Family Medicine
DX: E87.6 Hypokalemia (principal); R74.01 Elevation of levels of liver transaminase levels
CPT/HCPCS: 36415; 80053

== ENCOUNTER → 2025-04-24 08:19 | Outpatient (CLI) | payer MEDICARE, OTHER, SELFPAY | PROVIDERS: PCP Family Medicine; Visit Provider Nurse Practitioner Family | DX: R30.0 Dysuria (principal) | CPT/HCPCS: 87077; 87086 ==

== ENCOUNTER → 2025-05-01 07:41 | Outpatient (CLI) | payer MEDICARE, OTHER, SELFPAY | PROVIDERS: PCP Family Medicine; Visit Provider Nurse Practitioner Family | DX: R30.0 Dysuria (principal) | CPT/HCPCS: 87086 ==

== ENCOUNTER 2025-05-24 06:08 | Emergency (ER) | payer MEDICARE, OTHER, SELFPAY ==
[2025-05-24] VITALS (7 sets, daily range): BP systolic 122–150; BP diastolic 69–74; PULSE 73–90; RESP 15–20; TEMP 36.6; O2SAT 95–97; BMI 19.6
--- NOTE | 2025-05-24 06:16 | DI.RAD.S_ITS ---
PROCEDURE: XR CHEST 1V INDICATIONS: Chest Pain TECHNIQUE: One view of the chest was acquired. COMPARISON: None. FINDINGS: Surgical changes and devices: Surgical clips are noted in left axilla and in left breast. Lungs and pleura: Lungs are clear. No pleural effusions or pneumothorax. Mediastinum: Mediastinal contours appear normal. Heart size is normal. Bones and chest wall: No suspicious bony lesions. Overlying soft tissues appear unremarkable. IMPRESSION: No acute cardiopulmonary pathology. Dictated by: Gen Baldwin M.D. on 05/24/2025 at 8:13 Approved by: Gen Baldwin M.D. on 05/24/2025 at 8:13
--- NOTE | 2025-05-24 06:28 | EKG_ITS ---
[facility] [address], [place] [address] Test Date: 2025-05-24 Pat Name: Calli Marti Department: [facility] Room: Gender: Female Building Attendant: BEBA : 1945 Requested By: Order Number: [id number] Reading MD: Israel De Los Santos MD Measurements Intervals [place] Rate: 82 P: 61 GA: 134 QRS: 27 QRSD: 66 T: 20 QT: 394 QTc: 460 Interpretive Statements Normal sinus rhythm Cannot rule out Anterior infarct , age undetermined Electronically Signed On 05-24-2025 7:41:17 PST by Israel De Los Santos MD
[2025-05-24 06:32] LABS: Add Manual Diff / Slide Review NO; Hematocrit 35.6 % (36-46); Hemoglobin 12.4 g/dL (12.0-16.0); Lymphocytes Absolute Auto 1500 /uL (1100-4500); Mean Corpuscular HGB Conc 34.7 % (30-36); Mean Corpuscular Hemoglobin 31.5 PG (26-34); Mean Corpuscular Volume 90.8 fL (80-100); Platelet Count 185 X10^3/uL (150-400)
--- NOTE | 2025-05-24 06:32 | ED.CHESTPAIN ---
HPI - Chest Pain General Chief Complaint: Shortness of Breath/Dyspnea Stated Complaint: Chest pain , SOB this morning Time Seen by Provider: 05/24/25 06:12 Source: patient Mode of arrival: Ambulatory Limitations: no limitations History of Present Illness HPI narrative: 80-year-old female history of orthostatic hypotension, dysautonomia, recent appendectomy, palpitation, breast cancer status post surgery chemo radiation 2001 presents with left-sided chest pain that started at 4:00 a.m. this morning woke her up from sleep that was described initially as sharp that lasted for an hour along with a headache and dry hacking cough for which she took Tylenol. Her headache has subsided, but still has a dry cough and her chest pain on the left side is now described as dull ache. Other than what is stated 14 point review system is negative. Related Data Home Medications ?Medication ?Instructions ?Recorded ?Confirmed cholecalciferol (vitamin D3) 50 50 mcg PO DAILY 11/12/21 05/11/25 mcg (2,000 unit) capsule magnesium aspart,citrate,oxide 400 mg PO DAILY 07/09/22 05/11/25 acetaminophen 500 mg tablet 500 mg PO ONCE PRN 03/13/25 05/11/25 Previous Rx's ?Medication ?Instructions ?Recorded AMITR/CHUCK/KETAM TOPICAL SCALP See Rx Instructions .Route 10/04/23 1/8/0.5% SOLUTION .COMPLEX #100 mL calcitonin (salmon) 200 1 spray intranasal DAILY #3 ea 12/03/23 unit/actuation nasal spray meloxicam 15 mg tablet 15 mg PO DAILY #90 tabs 08/24/24 ondansetron 4 mg disintegrating 4 mg PO TID-QID PRN nausea and 09/08/24 tablet vomiting #60 tabs tramadol 50 mg tablet 50 mg PO Q8H PRN pain #20 tabs 12/01/24 lansoprazole 30 mg capsule,delayed 30 mg PO DAILY #90 caps 12/05/24 release gabapentin 100 mg capsule 200 mg (2 x 100 mg) PO BEDTIME 01/02/25 #180 caps progesterone micronized 100 mg 100 mg PO QAM #90 caps 01/02/25 capsule rosuvastatin 5 mg tablet 5 mg PO 3XW #39 tabs 01/25/25 hydrocodone 10 mg-acetaminophen 1 tab PO BEDTIME PRN pain #20 tabs 03/16/25 325 mg tablet fludrocortisone 0.1 mg tablet 0.2 mg (2 x 0.1 mg) PO DAILY #180 04/02/25 tabs cefdinir 300 mg capsule 300 mg PO BID #10 caps 04/24/25 Allergies Allergy/AdvReac Type Severity Reaction Status Date / Time levofloxacin (LEVOFLOXACIN) Allergy Severe DIZZINESS, Verified 05/24/25 06:11 WEAKNESS AND VOMITING Sulfa (Sulfonamide Allergy Severe PASSED Verified 05/24/25 06:11 Antibiotics) (SULFA OUT, (SULFONAMIDE ANTIBIOTICS)) DIZZINESS, NAUSEA ciprofloxacin (From CIPRO) Allergy Intermediate WEAKNESS, Verified 05/24/25 06:11 FAINTING, DIZZINESS nitrofurantoin (From Allergy Intermediate DIZZINESS, Verified 05/24/25 06:11 MACROBID) WEAKNESS, DIARRHEA AND VOMITING Review of Systems Review of Systems ROS Unobtainable: All systems reviewed & are unremarkable except as noted in HPI and below Patient History Medical History (Updated 05/24/25 @ 09:50 by Iris bridges RN) Chronic left shoulder pain Transaminitis Nausea & vomiting Acute abdominal pain in right lower quadrant Greater trochanteric bursitis of left hip Poor appetite Upper extremity somatic dysfunction Benign paroxysmal positional vertigo Essential tremor Plantar fasciitis, bilateral Autonomic dysfunction Hypotension Greater trochanteric bursitis of right hip Acute pain of right shoulder Frequent falls Balance problem Localized papular rash 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Supraventricular tachycardia, paroxysmal Heart palpitations Dystonia Strain of rectus abdominis muscle Abdominal tenderness Excessive cerumen in right ear canal Scalp itch Anxiety about health Mixed action and resting tremor Segmental and somatic dysfunction of rib cage Cystitis Abdominal pain Nausea Cranial somatic dysfunction Cervical stenosis of spine Lumbar facet arthropathy Chronic thoracic back pain Segmental and somatic dysfunction of abdomen and other regions Sacral region somatic dysfunction Pelvic somatic dysfunction Lumbar region somatic dysfunction Thoracic region somatic dysfunction Cervical somatic dysfunction Chronic low back pain without sciatica Neck pain Surgical History History of cataract removal with insertion of prosthetic lens Status post tubal ligation S/P total abdominal hysterectomy and bilateral salpingo-oophorectomy History of lumpectomy (01/10/02) Family History Brother Age: 81 Hyperlipidemia Mother Hyperlipidemia Ovarian cancer History of cholelithiasis Pheochromocytoma Sister Essential hypertension Hyperlipidemia Social History household members: none Smoking Status: Never smoker Tobacco: How many years used: 1 second hand exposure: No alcohol intake: former substance use type: does not use Smoking Status: Never smoker tobacco type: cigarettes Exam Narrative Exam Narrative: GENERAL: [83] year old patient appears stated age. Well-developed patient, in mild distress. HEAD: Atraumatic. Normocephalic. EYES: Pupils equal round and reactive. Extraocular motions intact. No scleral icterus. No injection or drainage. NECK: Trachea midline. Non tender CARDIOVASCULAR: Regular rate and rhythm without murmurs, gallops, or rubs. RESPIRATORY: Clear to auscultation. Breath sounds equal bilaterally. No wheezes, rales, or rhonchi. GASTROINTESTINAL: Abdomen soft, non-tender, nondistended. EXTREMITIES: No edema or joint tenderness. BACK: Nontender without deformity or crepitance. No flank tenderness. NEURO: AOx3. SKIN: No rash or erythema of visible areas Initial Vital Signs Initial Vital Signs: Vital Signs Temperature 97.9 F 05/24/25 06:11 Pulse Rate 90 05/24/25 06:11 Respiratory Rate 15 05/24/25 06:11 Blood Pressure 122/74 05/24/25 06:11 Pulse Oximetry 97 05/24/25 06:11 Oxygen Delivery Method Room Air 05/24/25 06:11 Course Orders Ordered: ED Orders 05/24/25 06:16 XR chest 1V Stat EKG-12 Lead Stat 05/24/25 06:25 Complete Blood Count AUTO DIFF Stat Comprehensive Metabolic Panel Stat Lipase Stat Magnesium Stat NT-proBNP (BNP-Adult 18+) Stat PTT Partial Thromboplastin Madi Stat Prothrombin Time INR Stat Troponin & CK Cardiac Panel Stat 05/24/25 07:05 Covid-19 + FLU A/B + RSV - PCR Stat 05/24/25 08:18 Trop I [Troponin I] Stat Discontinued Medications Aspirin (Aspirin 81 Mg Chew Tab) 324 mg PO NOW ONE Stop: 05/24/25 06:16 Last Admin: 05/24/25 06:43 Dose: 324 mg Documented By: EDDA Vital Signs Vital signs: Vital Signs - 8 hr 05/24/25 06:11 05/24/25 07:06 05/24/25 07:30 Temperature 97.9 F Pulse Rate 90 79 73 Respiratory Rate 15 18 20 Blood Pressure 122/74 Pulse Oximetry 97 95 96 Oxygen Delivery Method Room Air 05/24/25 07:30 05/24/25 08:00 05/24/25 08:00 Temperature Pulse Rate 77 Respiratory Rate 16 Blood Pressure 150/70 H 128/69 Pulse Oximetry 95 Oxygen Delivery Method 05/24/25 08:30 05/24/25 08:30 05/24/25 09:00 Temperature Pulse Rate 74 77 Respiratory Rate 18 20 Blood Pressure 142/69 H Pulse Oximetry 95 95 Oxygen Delivery Method 05/24/25 09:00 05/24/25 09:35 Temperature Pulse Rate 76 Respiratory Rate 16 Blood Pressure 126/70 146/73 H Pulse Oximetry 96 Oxygen Delivery Method Room Air MDM - Chest Pain Lab Data 05/24/25 06:25 05/24/25 06:25 Labs: Lab Results 05/24/25 05/24/25 05/24/25 Range/Units 06:25 07:05 08:18 WBC 7.0 (4.5-11.0) X10^3/uL RBC 3.92 L (4.0-5.2) X10^6/uL Hgb 12.4 (12.0-16.0) g/dL Hct 35.6 L (36-46) % MCV 90.8 (80-100) fL MCH 31.5 (26-34) PG MCHC 34.7 (30-36) % RDW 13.3 (11.6-14.8) % Plt Count 185 (150-400) X10^3/uL Neut % (Auto) 66.7 (50-75) % Lymph % (Auto) 21.0 L (25-40) % [place] % (Auto) 11.0 (3-14) % Eos % (Auto) 0.7 L (2-4) % Baso % (Auto) 0.6 (0-2) % Neut # (Auto) 4600 (2885-1600) /uL Lymph # (Auto) 1500 (4400-9059) /uL [place] # (Auto) 800 (0-900) /uL Eos # (Auto) 100 (0-450) /uL Baso # (Auto) 0 (0-100) /uL PT 12.8 H (9.4-12.5) SECONDS INR 1.1 (0.9-1.3) APTT 25 L (25.1-36.5) SECONDS Sodium 137 (137-145) mmol/L Potassium 3.4 (3.4-5.1) mmol/L Chloride 106 (98-107) mmol/L Carbon Dioxide 24 (22-32) mmol/L BUN 10 (7-17) mg/dL Creatinine 0.70 (0.52-1.04) mg/dL Estimated GFR > 60 (>60) mL/min BUN/Creatinine Ratio 14.3 (6-22) Glucose 112 H (70-99) mg/dL Calcium 9.0 (8.4-10.2) mg/dL Magnesium 2.2 (1.6-2.3) mg/dL Total Bilirubin 0.8 (0.2-1.3) mg/dL AST 36 (14-36) IU/L ALT 38 H (<35) IU/L Alkaline Phosphatase 45 (38-126) U/L Total Creatine Kinase 23 L (30-135) U/L Troponin I < 0.012 < 0.012 (0.01-0.034) ng/mL NT-Pro-B Natriuret Pep 596 H (<450) pg/mL Total Protein 7.1 (6.3-8.2) g/dL Albumin 4.0 (3.5-5.0) g/dL Globulin 3.1 (1.7-4.1) g/dL Albumin/Globulin Ratio 1.3 (1.0-2.8) Lipase 102 (23-300) U/L SARS-CoV-2 (PCR) Negative (Negative) Influenza A (RT-PCR) Flu a negative (NEGATIVE) Influenza B (RT-PCR) Flu b negative (NEGATIVE) RSV (PCR) Negative (Negative) ECG Data Interpretation: NSR HR 82 W[place] 134 QRS [address]-t wave change Unchanged from 03/09/25 MDM Narrative Medical decision making narrative: Pt s/o to at shift change pending final disposition Discharge Plan Departure Patient Disposition: Home Clinical Impression: Acute chest pain Prescriptions: No Action cefdinir 300 mg capsule 300 mg PO BID Qty: 10 0RF AMITR/CHUCK/KETAM TOPICAL SCALP 1/8/0.5% SOLUTION solution See Rx Instructions .ROUTE .COMPLEX Qty: 100 0RF Rx Instructions: Apply 1.5 ml to affected area of scalp twice daily.*squeeze bottle*; calcitonin (salmon) 200 unit/actuation spray,non-aerosol 1 spray Intranasal DAILY Qty: 3 3RF Rx Instructions: Alternate nostril daily meloxicam 15 mg tablet 15 mg PO DAILY Qty: 90 3RF lansoprazole 30 mg capsule,delayed release(DR/EC) 30 mg PO DAILY Qty: 90 3RF gabapentin 100 mg capsule 200 mg PO BEDTIME Qty: 180 3RF progesterone micronized 100 mg capsule 100 mg PO QAM Qty: 90 3RF rosuvastatin 5 mg tablet 5 mg PO 3XW Qty: 39 3RF fludrocortisone 0.1 mg tablet 0.2 mg PO DAILY Qty: 180 1RF cholecalciferol (vitamin D3) 50 mcg (2,000 unit) capsule 50 mcg PO DAILY magnesium aspart,citrate,oxide 400 mg magnesium capsule 400 mg PO DAILY Rx Instructions: Magnesium Citrate tramadol 50 mg tablet 50 mg PO Q8H PRN (Reason: pain) Qty: 20 5RF Rx Instructions: EXEMPT hydrocodone-acetaminophen 10-325 mg tablet 1 tab PO BEDTIME PRN (Reason: pain) Qty: 20 0RF ondansetron 4 mg tablet,disintegrating 4 mg PO TID-QID PRN (Reason: nausea and vomiting) Qty: 60 5RF acetaminophen 500 mg tablet 500 mg PO ONCE PRN Patient Comments: Pt reports takes 500 mg for headache. Referrals: Enrique Arreaga DO [Primary Care Provider, Family Practice] Stand Alone Forms: Patient Portal/API
[2025-05-24 06:38] LABS: INR 1.1 (0.9-1.3); Prothrombin Time 12.8 SECONDS (9.4-12.5)
[2025-05-24 06:41] LABS: PTT Partial Thromboplastin Tim 25 SECONDS (25.1-36.5)
[2025-05-24] MEDS: ASPIRIN 81 MG CHEW TAB 324 MG PO (06:43)
[2025-05-24 06:44] LABS: Alanine Aminotransferase 38 IU/L (<35); Albumin 4.0 g/dL (3.5-5.0); Albumin Globulin Ratio 1.3 (1.0-2.8); Alkaline Phosphatase 45 U/L (38-126); Blood Urea Nitrogen 10 mg/dL (7-17); Calcium 9.0 mg/dL (8.4-10.2); Carbon Dioxide 24 mmol/L (22-32); Chloride 106 mmol/L (98-107); Creatine Kinase 23 U/L (30-135); Estimated Glomerular Filt Rate > 60 mL/min (>60); Globulin 3.1 g/dL (1.7-4.1); Glucose 112 mg/dL (70-99); HEMOLYSIS < 15 (0-50); Lipase 102 U/L (23-300); Magnesium 2.2 mg/dL (1.6-2.3); Potassium 3.4 mmol/L (3.4-5.1); Sodium 137 mmol/L (137-145); Total Protein 7.1 g/dL (6.3-8.2)
[2025-05-24 06:55] LABS: NT-proBNP (BNP-Adult 18+) 596 pg/mL (<450); Troponin I < 0.012 ng/mL (0.01-0.034)
[2025-05-24 07:50] LABS: COVID-19 CEPHEID 4-PLEX PCR Negative (Negative); Influenza A - CEPHEID Flu A NEGATIVE (NEGATIVE); Influenza B - CEPHEID Flu B NEGATIVE (NEGATIVE)
[2025-05-24 08:58] LABS: Troponin I < 0.012 ng/mL (0.01-0.034)
--- NOTE | 2025-05-24 09:33 | PC.NURSE ---
Pt asked to leave without wating for discharge instruction, Dr Goel gave verbal discharge instructions at bedside to the patient, IV removed vitals updated. Pt left dept at 0940
== END 2025-05-24 09:49 | disposition home or self-care (01) ==
PROVIDERS: Family Medicine; Emergency Provider Emergency Medicine; PCP Family Medicine
DX: R07.9 Chest pain, unspecified (principal); R05.9 Cough, unspecified; R51.9 Headache, unspecified
CPT/HCPCS: 36415; 71045; 80053; 82550; 83690; 83735; 83880; 84484; 85025; 85610; 85730; 87637; 93005; 93010; 99284

== ENCOUNTER → 2025-06-14 15:34 | Outpatient (CLI) | payer MEDICARE, OTHER, SELFPAY ==
--- NOTE | 2025-06-14 15:37 | DI.MG.S_ITS ---
MM screening mammo BI: 06/14/2025. BI-RADS: 2 CLINICAL: 80-year old female for bilateral screening mammogram. No Tyrer-Cuzick risk score calculation due to the patient's personal history of breast cancer. Patient reports a history of left breast carcinoma diagnosed at age 58. Status-post left lumpectomy with radiation therapy, chemotherapy and hormonal therapy. No first-degree family history of breast cancer. History of ovarian cancer in one first-degree relative. The patient reports testing negative for BRCA gene mutation. The patient had a prior left breast biopsy. PRIOR EXAMS 06/13/2024, 06/10/2023, 06/02/2022, 05/26/2021. MAMMOGRAPHY TECHNIQUE: 2D and 3D (tomosynthesis) digital mammographic views obtained, with additional images as needed for full coverage. Current study was also evaluated with a Computer Aided Detection (CAD) system. DENSITY B. There are scattered areas of fibroglandular density. MAMMOGRAPHY FINDINGS Right: No suspicious mass, asymmetry, microcalcification, or other abnormality seen. Left: Surgical clips present on the left. Benign-appearing post-surgical changes noted on the left. There are no suspicious masses, calcifications, or other findings in the breast. IMPRESSION: Right * No evidence of malignancy. Left * No evidence of malignancy with benign findings. RECOMMENDATIONS Bilateral * Annual screening mammography. OVERALL ASSESSMENT CATEGORY BI-RADS-2: Benign. [employer] recommends annual screening mammography beginning at age 40 for women with average risk of breast cancer. ELECTRONICALLY SIGNED: Favian Nash M.D. on 06/14/2025 at 11:28:31 PM PT Interpreting Station ID: [id number]
== END ==
LOC: MAMMO 15:36
PROVIDERS: PCP Family Medicine; Referring Provider Family Medicine; Visit Provider Family Medicine
DX: Z12.31 Encounter for screening mammogram for malignant neoplasm of breast (principal); Z85.3 Personal history of malignant neoplasm of breast; Z80.41 Family history of malignant neoplasm of ovary
CPT/HCPCS: 77063; 77067